=== PATIENT | female | born 1935 | race African-American/Black ===

== ENCOUNTER 2017-11-09 15:32 | Inpatient (IN) ==
[2017-11-09] MEDS ORDERED: FUROSEMIDE 100 MG/10 ML VIAL IV STA (16:01)
[2017-11-09 17:17] LABS: INR 1.1; Partial Thromboplastin Time 26.6 SECS (0-40)
[2017-11-09 17:21] LABS: Bilirubin,Total 0.4 MG/DL (0.2-1.0); Calcium 8.6 MG/DL (8.5-10.1); Osmolality,Calculated 298.1 MOS/KG (273-304); Potassium 4.9 MMOL/L (3.5-5.1); Total Protein 7.4 G/DL (6.4-8.3)
[2017-11-09 17:22] LABS: Troponin I Only 0.048 NG/ML (0.00-0.045)
[2017-11-09 17:37] LABS: Apearance,Urine CLEAR (Clear); Bacteria,Urine Occasional /HPF (Few); Bilirubin,Urine Negative (Negative); Blood, Urine Negative (Negative); Glucose,Urine (UA) Negative (Negative); Hyaline Casts,Urine 1 /LPF (0-3); Ketones,Urine Negative (Negative); Nitrite,Urine Negative (Negative); Protein,Urine Negative; RBC,Urine 1 /HPF (0-4); Squamous Epithelial Cell,Urine Occasional /HPF (0-10); Urine Color Yellow (Yellow); Urine Specific Gravity 1.009 (1.001-1.035); Urine Urobilinogen < 2.0 EU/DL (0.2-1.0); WBC,Urine 1 /HPF (0-6)
[2017-11-09 17:41] LABS: Basophils % 0.5 % (0.0-0.8); Eosinophils # 0.5 10*3/uL (0.0-0.87); Eosinophils % 5.9 % (0.00-10.9); Hematocrit 35.8 VOL% (35.7-47.0); Hemoglobin 10.6 GM/DL (12.0-16.0); Immature Granulocytes % 0.4 %; Immature Granulocytes Absolute 0.03 #; Lymphocytes # 0.7 10*3/uL (1.4-4.0); Lymphocytes % 8.4 % (21.3-54.2); Mean Corpuscular HGB Conc 29.6 GM/DL (32-36); Mean Corpuscular Hemoglobin 24 PG (27-34); Mean Corpuscular Volume 82.5 FL (87-102); Mean Platelet Volume 10.9 FL (9.6-12.0); Monocytes # 0.7 10*3/uL (0.11-0.8); Monocytes % 8.8 % (1.7-12.7); Platelet Count 192 T/CUMM (130-400); Red Blood Count 4.34 MC/CUMM (3.8-5.5); White Blood Count 7.9 T/CUMM (4-12)
[2017-11-09] MEDS ORDERED: ACETAMINOPHEN 325 MG TABLET PO PRN (19:44)
[2017-11-09] MEDS ORDERED: DOCUSATE SODIUM 100 MG CAPSULE PO PRN (19:44)
[2017-11-09] MEDS ORDERED: ONDANSETRON 4 MG/2 ML VIAL IV PRN (19:44)
[2017-11-09] MEDS ORDERED: GLUCAGON 1 MG VIAL IM PRN (20:08)
[2017-11-09] MEDS ORDERED: DEXTROSE 50% 25 GM/50 ML VIAL IV PRN (20:08)
[2017-11-09] MEDS ORDERED: ENOXAPARIN 30 MG/0.3 ML SYRINGE SUBCUT SCH (21:00)
[2017-11-09] MEDS ORDERED: ALBUTEROL/IPRATROPIUM 3 ML NEB RESP TX PRN (22:04)
[2017-11-09] MEDS: INSULIN REGULAR 100 UNIT/ML SUBCUT SCH (22:39)
[2017-11-09] MEDS: CARVEDILOL 25 MG TABLET PO SCH (22:46)
[2017-11-09] MEDS: APIXABAN 2.5 MG TABLET PO SCH (22:46)
[2017-11-09] MEDS: cefTRIAXone 1,000 MG in SYRINGE 1 EACH IV SCH (22:46)
[2017-11-09] MEDS: hydrALAZINE 25 MG TABLET PO SCH (22:46)
[2017-11-10 05:12] LABS: Apearance,Urine CLOUDY (Clear); Bilirubin,Urine Negative (Negative); Blood, Urine Large mg/dL (Negative); Glucose,Urine (UA) Negative (Negative); Hyaline Casts,Urine 20 /LPF (0-3); Ketones,Urine Negative (Negative); Nitrite,Urine Negative (Negative); Protein,Urine Negative; RBC,Urine 860 /HPF (0-4); Squamous Epithelial Cell,Urine Occasional /HPF (0-10); Urine Color Yellow (Yellow); Urine Specific Gravity 1.006 (1.001-1.035); Urine Urobilinogen < 2.0 EU/DL (0.2-1.0); WBC,Urine 62 /HPF (0-6)
[2017-11-10 05:14] LABS: Basophils % 0.3 % (0.0-0.8); Eosinophils # 0.7 10*3/uL (0.0-0.87); Eosinophils % 9.5 % (0.00-10.9); Hematocrit 33.8 VOL% (35.7-47.0); Hemoglobin 10.2 GM/DL (12.0-16.0); Immature Granulocytes % 0.4 %; Immature Granulocytes Absolute 0.03 #; Lymphocytes # 0.8 10*3/uL (1.4-4.0); Lymphocytes % 10.4 % (21.3-54.2); Mean Corpuscular HGB Conc 30.2 GM/DL (32-36); Mean Corpuscular Hemoglobin 24 PG (27-34); Mean Corpuscular Volume 80.3 FL (87-102); Mean Platelet Volume 10.3 FL (9.6-12.0); Monocytes # 0.8 10*3/uL (0.11-0.8); Monocytes % 10.4 % (1.7-12.7); Neutrophils # 5.1 10*3/uL (1.4-7.4); Platelet Count 183 T/CUMM (130-400); Red Blood Count 4.21 MC/CUMM (3.8-5.5); Red Cell Distribution Width 15.9 % (9.3-17.3); White Blood Count 7.4 T/CUMM (4-12)
[2017-11-10 05:40] LABS: Albumin 3.1 G/DL (3.4-5.0); Bilirubin,Total 0.6 MG/DL (0.2-1.0); Calcium 8.8 MG/DL (8.5-10.1); Total Protein 6.7 G/DL (6.4-8.3)
[2017-11-10 05:41] LABS: Osmolality,Calculated 299.7 MOS/KG (273-304); Potassium 4.3 MMOL/L (3.5-5.1)
[2017-11-10] MEDS ORDERED: FUROSEMIDE 40 MG/4 ML VIAL IV SCH (08:00)
[2017-11-10] MEDS: INSULIN REGULAR 100 UNIT/ML SUBCUT SCH ×4 (08:13→21:22)
[2017-11-10] MEDS: sitaGLIPtin 25 MG TABLET PO SCH (09:35)
[2017-11-10] MEDS: ASPIRIN EC 81 MG TABLET PO SCH (09:35)
[2017-11-10] MEDS: glyBURIDE 5 MG TABLET PO SCH ×2 (09:35→17:45)
[2017-11-10] MEDS: APIXABAN 2.5 MG TABLET PO SCH ×2 (09:37→21:22)
[2017-11-10] MEDS: ISOSORBIDE MONONITRATE 30 MG TABLET PO SCH (09:37)
[2017-11-10] MEDS: CILOSTAZOL 50 MG TABLET PO SCH (09:37)
[2017-11-10] MEDS: POTASSIUM CHLORIDE 10 MEQ TABLET PO SCH (09:38)
[2017-11-10] MEDS: DILTIAZEM CD 180 MG CAPSULE PO SCH (09:39)
[2017-11-10] MEDS: PANTOPRAZOLE 40 MG TABLET PO SCH (09:41)
[2017-11-10] MEDS: CLOPIDOGREL 75 MG TABLET PO SCH (09:41)
[2017-11-10] MEDS: CARVEDILOL 25 MG TABLET PO SCH ×2 (09:44→21:22)
[2017-11-10] MEDS: hydrALAZINE 25 MG TABLET PO SCH ×3 (09:44→21:22)
[2017-11-10] MEDS: FUROSEMIDE 40 MG/4 ML VIAL IV SCH (09:46)
[2017-11-10] MEDS ORDERED: methylPREDNISolone SOD SUC 40 MG/1 ML VIAL IV SCH (10:30)
[2017-11-10] MEDS: ALBUTEROL/IPRATROPIUM 3 ML NEB RESP TX SCH ×2 (13:46→19:54)
[2017-11-10] MEDS: cefTRIAXone 1,000 MG in SYRINGE 1 EACH IV SCH (21:22)
[2017-11-11] MEDS: ALBUTEROL/IPRATROPIUM 3 ML NEB RESP TX SCH ×4 (01:18→19:27)
[2017-11-11 05:37] LABS: Hematocrit 33.9 VOL% (35.7-47.0); Hemoglobin 10.2 GM/DL (12.0-16.0); Immature Granulocytes % 0.4 %; Immature Granulocytes Absolute 0.02 #; Lymphocytes # 0.5 10*3/uL (1.4-4.0); Lymphocytes % 9.3 % (21.3-54.2); Mean Corpuscular HGB Conc 30.1 GM/DL (32-36); Mean Corpuscular Hemoglobin 24 PG (27-34); Mean Corpuscular Volume 79.8 FL (87-102); Mean Platelet Volume 10.9 FL (9.6-12.0); Monocytes # 0.1 10*3/uL (0.11-0.8); Monocytes % 2.2 % (1.7-12.7); Neutrophils # 4.5 10*3/uL (1.4-7.4); Neutrophils % 88.1 % (38.7-73.9); Platelet Count 196 T/CUMM (130-400); Red Blood Count 4.25 MC/CUMM (3.8-5.5); Red Cell Distribution Width 15.9 % (9.3-17.3); White Blood Count 5.1 T/CUMM (4-12)
[2017-11-11 06:07] LABS: Calcium 9.2 MG/DL (8.5-10.1); Potassium 4.5 MMOL/L (3.5-5.1)
[2017-11-11 06:24] LABS: Risk Ratio 1.98; VLDL CHOLESTEROL 7.2 MG/DL
[2017-11-11] MEDS: FUROSEMIDE 40 MG/4 ML VIAL IV SCH ×2 (08:10→17:07)
[2017-11-11] MEDS: CLOPIDOGREL 75 MG TABLET PO SCH (08:11)
[2017-11-11] MEDS: ISOSORBIDE MONONITRATE 30 MG TABLET PO SCH (08:11)
[2017-11-11] MEDS: INSULIN REGULAR 100 UNIT/ML SUBCUT SCH ×3 (08:11→18:10)
[2017-11-11] MEDS: sitaGLIPtin 25 MG TABLET PO SCH (08:11)
[2017-11-11] MEDS: glyBURIDE 5 MG TABLET PO SCH ×2 (08:11→17:09)
[2017-11-11] MEDS: ASPIRIN EC 81 MG TABLET PO SCH (08:11)
[2017-11-11] MEDS: CARVEDILOL 25 MG TABLET PO SCH ×2 (08:12→21:16)
[2017-11-11] MEDS: DILTIAZEM CD 180 MG CAPSULE PO SCH (08:12)
[2017-11-11] MEDS: PANTOPRAZOLE 40 MG TABLET PO SCH (08:12)
[2017-11-11] MEDS: hydrALAZINE 25 MG TABLET PO SCH ×3 (08:12→21:16)
[2017-11-11] MEDS: CILOSTAZOL 50 MG TABLET PO SCH (08:12)
[2017-11-11] MEDS: POTASSIUM CHLORIDE 10 MEQ TABLET PO SCH (08:12)
[2017-11-11] MEDS: APIXABAN 2.5 MG TABLET PO SCH ×2 (08:12→21:16)
[2017-11-11] MEDS ORDERED: FUROSEMIDE 40 MG/4 ML VIAL IV ONE (16:00)
[2017-11-12] MEDS: cefTRIAXone 1,000 MG in SYRINGE 1 EACH IV SCH ×2 (00:03→21:15)
[2017-11-12] MEDS: INSULIN REGULAR 100 UNIT/ML SUBCUT SCH ×4 (00:09→15:56)
[2017-11-12] MEDS: ALBUTEROL/IPRATROPIUM 3 ML NEB RESP TX SCH ×4 (00:31→19:40)
[2017-11-12 05:30] LABS: Basophils % 0.4 % (0.0-0.8); Eosinophils # 0.1 10*3/uL (0.0-0.87); Hematocrit 32.8 VOL% (35.7-47.0); Hemoglobin 9.7 GM/DL (12.0-16.0); Immature Granulocytes % 0.1 %; Immature Granulocytes Absolute 0.01 #; Lymphocytes # 0.8 10*3/uL (1.4-4.0); Lymphocytes % 10.8 % (21.3-54.2); Mean Corpuscular HGB Conc 29.6 GM/DL (32-36); Mean Corpuscular Hemoglobin 24 PG (27-34); Mean Platelet Volume 10.4 FL (9.6-12.0); Monocytes # 0.7 10*3/uL (0.11-0.8); Monocytes % 9.5 % (1.7-12.7); Neutrophils # 5.7 10*3/uL (1.4-7.4); Neutrophils % 78.2 % (38.7-73.9); Platelet Count 199 T/CUMM (130-400); Red Blood Count 4.05 MC/CUMM (3.8-5.5); Red Cell Distribution Width 15.9 % (9.3-17.3); White Blood Count 7.3 T/CUMM (4-12)
[2017-11-12 06:00] LABS: Calcium 9.2 MG/DL (8.5-10.1); Osmolality,Calculated 300.1 MOS/KG (273-304)
[2017-11-12] MEDS: ISOSORBIDE MONONITRATE 30 MG TABLET PO SCH (08:54)
[2017-11-12] MEDS: DILTIAZEM CD 180 MG CAPSULE PO SCH (08:54)
[2017-11-12] MEDS: APIXABAN 2.5 MG TABLET PO SCH ×2 (08:54→21:14)
[2017-11-12] MEDS: ASPIRIN EC 81 MG TABLET PO SCH (08:54)
[2017-11-12] MEDS: POTASSIUM CHLORIDE 10 MEQ TABLET PO SCH (08:54)
[2017-11-12] MEDS: PANTOPRAZOLE 40 MG TABLET PO SCH (08:54)
[2017-11-12] MEDS: CILOSTAZOL 50 MG TABLET PO SCH (08:54)
[2017-11-12] MEDS: hydrALAZINE 25 MG TABLET PO SCH (08:54)
[2017-11-12] MEDS: FUROSEMIDE 40 MG/4 ML VIAL IV SCH (08:55)
[2017-11-12] MEDS: CARVEDILOL 25 MG TABLET PO SCH ×2 (08:55→21:15)
[2017-11-12] MEDS: glyBURIDE 5 MG TABLET PO SCH (08:55)
[2017-11-12] MEDS: sitaGLIPtin 25 MG TABLET PO SCH (08:55)
[2017-11-12] MEDS: FUROSEMIDE 80 MG TABLET PO SCH (16:02)
[2017-11-13] MEDS: ALBUTEROL/IPRATROPIUM 3 ML NEB RESP TX SCH ×2 (00:08→08:10)
[2017-11-13] MEDS: INSULIN REGULAR 100 UNIT/ML SUBCUT SCH ×4 (01:21→16:15)
[2017-11-13 04:26] LABS: Basophils % 0.5 % (0.0-0.8); Eosinophils # 0.5 10*3/uL (0.0-0.87); Eosinophils % 7.8 % (0.00-10.9); Hematocrit 34.4 VOL% (35.7-47.0); Hemoglobin 10.4 GM/DL (12.0-16.0); Immature Granulocytes % 0.3 %; Immature Granulocytes Absolute 0.02 #; Lymphocytes # 0.8 10*3/uL (1.4-4.0); Lymphocytes % 11.7 % (21.3-54.2); Mean Corpuscular HGB Conc 30.2 GM/DL (32-36); Mean Corpuscular Hemoglobin 24 PG (27-34); Mean Platelet Volume 10.5 FL (9.6-12.0); Monocytes # 0.7 10*3/uL (0.11-0.8); Monocytes % 11.4 % (1.7-12.7); Neutrophils # 4.4 10*3/uL (1.4-7.4); Neutrophils % 68.3 % (38.7-73.9); Platelet Count 216 T/CUMM (130-400); White Blood Count 6.5 T/CUMM (4-12)
[2017-11-13 04:53] LABS: Calcium 9.2 MG/DL (8.5-10.1); Osmolality,Calculated 299.1 MOS/KG (273-304); Potassium 3.7 MMOL/L (3.5-5.1)
[2017-11-13] MEDS: ASPIRIN EC 81 MG TABLET PO SCH (09:45)
[2017-11-13] MEDS: APIXABAN 2.5 MG TABLET PO SCH (09:45)
[2017-11-13] MEDS: PANTOPRAZOLE 40 MG TABLET PO SCH (09:45)
[2017-11-13] MEDS: DILTIAZEM CD 180 MG CAPSULE PO SCH (09:46)
[2017-11-13] MEDS: CILOSTAZOL 50 MG TABLET PO SCH (09:46)
[2017-11-13] MEDS: ISOSORBIDE MONONITRATE 30 MG TABLET PO SCH (09:47)
[2017-11-13] MEDS: CARVEDILOL 25 MG TABLET PO SCH (09:47)
[2017-11-13] MEDS: FUROSEMIDE 80 MG TABLET PO SCH ×2 (09:48→16:15)
[2017-11-13] MEDS: POTASSIUM CHLORIDE 10 MEQ TABLET PO SCH (09:49)
[2017-11-13] MEDS: sitaGLIPtin 25 MG TABLET PO SCH (09:50)
[2017-11-13 11:37] VITALS: BP 145/53
[2017-11-13] MEDS ORDERED: BISACODYL 5 MG TABLET PO PRN (11:48)
== END 2017-11-13 16:35 | DRG 291 ==
LOC: N.ED 15:32 → N.EDINP 19:44 → SUATTDRO 19:45 → N.EDINP 21:45 → N.4E 21:52
PROVIDERS: ADMIT Internal Medicine; ATTEND Internal Medicine Infectious Disease

== ENCOUNTER 2017-11-27 08:22 | Inpatient (IN) ==
[2017-11-27] MEDS ORDERED: DEXTROSE 50% 25 GM/50 ML SYRINGE IV ONE (08:37)
[2017-11-27] MEDS ORDERED: DEXTROSE 50% 25 GM/50 ML SYRINGE IV STA (08:38)
[2017-11-27 09:07] LABS: Basophils % 0.2 % (0.0-0.8); Eosinophils # 0.4 10*3/uL (0.0-0.87); Eosinophils % 5.6 % (0.00-10.9); Immature Granulocytes % 0.3 %; Immature Granulocytes Absolute 0.02 #; Lymphocytes # 0.8 10*3/uL (1.4-4.0); Mean Corpuscular HGB Conc 30.3 GM/DL (32-36); Mean Corpuscular Hemoglobin 25 PG (27-34); Mean Corpuscular Volume 81.1 FL (87-102); Monocytes # 0.5 10*3/uL (0.11-0.8); Monocytes % 7.9 % (1.7-12.7); Neutrophils # 4.7 10*3/uL (1.4-7.4); Platelet Count 192 T/CUMM (130-400); Red Blood Count 4.07 MC/CUMM (3.8-5.5); Red Cell Distribution Width 16.9 % (9.3-17.3); White Blood Count 6.5 T/CUMM (4-12)
[2017-11-27] MEDS ORDERED: DEXTROSE 50% 25 GM/50 ML VIAL IV PRN (09:30)
[2017-11-27] MEDS ORDERED: GLUCAGON 1 MG VIAL IM PRN (09:30)
[2017-11-27 09:32] LABS: Bilirubin,Total 0.4 MG/DL (0.2-1.0); Calcium 8.8 MG/DL (8.5-10.1); Osmolality,Calculated 286.4 MOS/KG (273-304); Potassium 4.1 MMOL/L (3.5-5.1); Total Protein 7.3 G/DL (6.4-8.3)
[2017-11-27 09:48] LABS: Hypochromasia 1+; Ovalocytes Slight; Platelet Estimate Adequate
[2017-11-27 09:52] LABS: ABG Base Excess 6.9 MMOL/L (-2.5-2.5); ABG HCO3 30.7 MMOL/L (20-26); ABG Oxygen Saturation 95.4 % (95-100); ABG PH 7.305 (7.35-7.45); ABG PO2 82.5 MM HG (80-95); ABG TCO2 32.7 MMOL/L (23-27)
[2017-11-27 09:53] LABS: ABG PCO2 71.6 MM HG (35-48)
[2017-11-27 11:52] LABS: Apearance,Urine CLEAR (Clear); Bacteria,Urine Occasional /HPF (Few); Bilirubin,Urine Negative (Negative); Blood, Urine Negative (Negative); Glucose,Urine (UA) Negative (Negative); Hyaline Casts,Urine 6 /LPF (0-3); Ketones,Urine Negative (Negative); Mucus,Urine Occasional /LPF (Occasional); Nitrite,Urine Negative (Negative); Protein,Urine Negative; RBC,Urine <1 /HPF (0-4); Urine Color Yellow (Yellow); Urine Specific Gravity 1.008 (1.001-1.035); Urine Urobilinogen < 2.0 EU/DL (0.2-1.0); WBC,Urine <1 /HPF (0-6)
[2017-11-27 11:57] LABS: Barbiturates Screen,Urine Negative (Negative); Benzodiazepines Screen,Urine Negative (Negative); Cannabinoid Screen,Urine Negative (Negative); Opiate Screen,Urine Negative (Negative); Phencyclidine Screen,Urine Negative (Negative)
[2017-11-27] MEDS ORDERED: ACETAMINOPHEN 325 MG TABLET PO PRN (12:31)
[2017-11-27] MEDS ORDERED: ONDANSETRON 4 MG/2 ML VIAL IV PRN (12:31)
[2017-11-27] MEDS ORDERED: ALBUTEROL/IPRATROPIUM 3 ML NEB RESP TX PRN (14:21)
[2017-11-27] MEDS: ISOSORBIDE MONONITRATE 30 MG TABLET PO SCH (15:54)
[2017-11-27] MEDS: FUROSEMIDE 40 MG/4 ML VIAL IV SCH (15:54)
[2017-11-27] MEDS ORDERED: FUROSEMIDE 40 MG/4 ML VIAL IV SCH (16:00)
[2017-11-27 18:14] LABS: ABG Base Excess 8.6 MMOL/L (-2.5-2.5); ABG HCO3 32.3 MMOL/L (20-26); ABG PCO2 64.7 MM HG (35-48); ABG PH 7.356 (7.35-7.45); ABG PO2 76.7 MM HG (80-95); ABG TCO2 33.1 MMOL/L (23-27)
[2017-11-27] MEDS: DOCUSATE SODIUM 100 MG CAPSULE PO SCH (21:10)
[2017-11-27] MEDS: APIXABAN 2.5 MG TABLET PO SCH (21:10)
[2017-11-27] MEDS: ATORVASTATIN 80 MG TABLET PO SCH (21:10)
[2017-11-27] MEDS: LORATADINE 10 MG TABLET PO SCH (21:10)
[2017-11-27] MEDS: CARVEDILOL 25 MG TABLET PO SCH (21:10)
[2017-11-28 04:04] LABS: ABG Base Excess 9.5 MMOL/L (-2.5-2.5); ABG HCO3 33.2 MMOL/L (20-26); ABG Oxygen Saturation 92.8 % (95-100); ABG PCO2 58.3 MM HG (35-48); ABG PO2 63.8 MM HG (80-95); ABG TCO2 33.3 MMOL/L (23-27); Allen Test Positive; Pt O2 Delivery Device BIPAP
[2017-11-28 05:51] LABS: Basophils % 0.2 % (0.0-0.8); Eosinophils # 0.3 10*3/uL (0.0-0.87); Hematocrit 29.9 VOL% (35.7-47.0); Immature Granulocytes % 0.4 %; Immature Granulocytes Absolute 0.02 #; Lymphocytes # 0.7 10*3/uL (1.4-4.0); Lymphocytes % 12.4 % (21.3-54.2); Mean Corpuscular HGB Conc 30.1 GM/DL (32-36); Mean Corpuscular Hemoglobin 24 PG (27-34); Mean Platelet Volume 11.9 FL (9.6-12.0); Monocytes # 0.6 10*3/uL (0.11-0.8); Monocytes % 10.5 % (1.7-12.7); Neutrophils # 3.9 10*3/uL (1.4-7.4); Neutrophils % 70.5 % (38.7-73.9); Platelet Count 187 T/CUMM (130-400); Red Blood Count 3.69 MC/CUMM (3.8-5.5); White Blood Count 5.5 T/CUMM (4-12)
[2017-11-28 06:04] LABS: Calcium 8.6 MG/DL (8.5-10.1); Potassium 4.2 MMOL/L (3.5-5.1)
[2017-11-28 06:15] LABS: % Iron Saturation 12.1 % (18-50)
[2017-11-28 06:25] LABS: Band Neutrophils 2 % (0-10); Eosinophils 2 % (0-10); Hypochromasia 2+; Lymphocytes 9 % (20-55); Macrocytosis 1+; Platelet Estimate Adequate; Segmented Neutrophils 79 % (50-85); Target Cells Slight; Total Cells Counted 100
[2017-11-28 06:29] LABS: Folate 11.6 NG/ML (5.4-24.0)
[2017-11-28] MEDS: FUROSEMIDE 40 MG/4 ML VIAL IV SCH ×2 (08:51→15:10)
[2017-11-28] MEDS: ASPIRIN EC 81 MG TABLET PO SCH (08:52)
[2017-11-28] MEDS: CARVEDILOL 25 MG TABLET PO SCH ×2 (08:52→21:17)
[2017-11-28] MEDS: POLYETHYLENE GLYCOL POWDER 17 GM PACK PO SCH (08:52)
[2017-11-28] MEDS: DILTIAZEM CD 180 MG CAPSULE PO SCH (08:52)
[2017-11-28] MEDS: DOCUSATE SODIUM 100 MG CAPSULE PO SCH ×2 (08:52→21:17)
[2017-11-28] MEDS: CLOPIDOGREL 75 MG TABLET PO SCH (08:52)
[2017-11-28] MEDS: PANTOPRAZOLE 40 MG TABLET PO SCH (08:52)
[2017-11-28] MEDS: APIXABAN 2.5 MG TABLET PO SCH ×2 (08:52→21:17)
[2017-11-28] MEDS: CILOSTAZOL 50 MG TABLET PO SCH (08:53)
[2017-11-28] MEDS: ISOSORBIDE MONONITRATE 30 MG TABLET PO SCH (15:10)
[2017-11-28] MEDS: ATORVASTATIN 80 MG TABLET PO SCH (21:17)
[2017-11-28] MEDS: LORATADINE 10 MG TABLET PO SCH (21:17)
[2017-11-29 04:01] LABS: ABG Base Excess 9.7 MMOL/L (-2.5-2.5); ABG HCO3 35.4 MMOL/L (20-26); ABG Oxygen Saturation 93.2 % (95-100); ABG PCO2 55.2 MM HG (35-48); ABG PH 7.425 (7.35-7.45); ABG PO2 69.1 MM HG (80-95); ABG TCO2 37.1 MMOL/L (23-27)
[2017-11-29 06:00] LABS: Basophils % 0.2 % (0.0-0.8); Eosinophils # 0.4 10*3/uL (0.0-0.87); Eosinophils % 6.9 % (0.00-10.9); Hematocrit 30.7 VOL% (35.7-47.0); Hemoglobin 9.2 GM/DL (12.0-16.0); Immature Granulocytes % 0.2 %; Immature Granulocytes Absolute 0.01 #; Lymphocytes # 0.8 10*3/uL (1.4-4.0); Lymphocytes % 13.7 % (21.3-54.2); Mean Corpuscular Hemoglobin 24 PG (27-34); Mean Corpuscular Volume 80.6 FL (87-102); Mean Platelet Volume 11.3 FL (9.6-12.0); Monocytes # 0.7 10*3/uL (0.11-0.8); Monocytes % 11.9 % (1.7-12.7); Neutrophils # 4.1 10*3/uL (1.4-7.4); Neutrophils % 67.1 % (38.7-73.9); Platelet Count 179 T/CUMM (130-400); Red Blood Count 3.81 MC/CUMM (3.8-5.5); Red Cell Distribution Width 17.2 % (9.3-17.3); White Blood Count 6.1 T/CUMM (4-12)
[2017-11-29 06:21] LABS: Osmolality,Calculated 296.1 MOS/KG (273-304); Potassium 4.6 MMOL/L (3.5-5.1)
[2017-11-29] MEDS: FUROSEMIDE 40 MG/4 ML VIAL IV SCH ×2 (09:05→16:20)
[2017-11-29] MEDS: POLYETHYLENE GLYCOL POWDER 17 GM PACK PO SCH (09:05)
[2017-11-29] MEDS: DOCUSATE SODIUM 100 MG CAPSULE PO SCH ×2 (09:06→20:50)
[2017-11-29] MEDS: DILTIAZEM CD 180 MG CAPSULE PO SCH (09:06)
[2017-11-29] MEDS: CLOPIDOGREL 75 MG TABLET PO SCH (09:06)
[2017-11-29] MEDS: CILOSTAZOL 50 MG TABLET PO SCH (09:06)
[2017-11-29] MEDS: APIXABAN 2.5 MG TABLET PO SCH ×2 (09:06→20:50)
[2017-11-29] MEDS: ASPIRIN EC 81 MG TABLET PO SCH (09:06)
[2017-11-29] MEDS: PANTOPRAZOLE 40 MG TABLET PO SCH (09:06)
[2017-11-29] MEDS: CARVEDILOL 25 MG TABLET PO SCH ×2 (09:06→20:50)
[2017-11-29] MEDS: ISOSORBIDE MONONITRATE 30 MG TABLET PO SCH (13:42)
[2017-11-29] MEDS: ATORVASTATIN 80 MG TABLET PO SCH (20:50)
[2017-11-29] MEDS: LORATADINE 10 MG TABLET PO SCH (20:50)
[2017-11-30 03:32] LABS: ABG Base Excess 8.7 MMOL/L (-2.5-2.5); ABG HCO3 32.4 MMOL/L (20-26); ABG Oxygen Saturation 93.6 % (95-100); ABG PCO2 62.3 MM HG (35-48); ABG PH 7.369 (7.35-7.45); Allen Test Positive; Pt O2 Delivery Device BIPAP
[2017-11-30 05:12] LABS: Basophils % 0.5 % (0.0-0.8); Eosinophils # 0.4 10*3/uL (0.0-0.87); Eosinophils % 6.9 % (0.00-10.9); Hematocrit 31.5 VOL% (35.7-47.0); Hemoglobin 9.3 GM/DL (12.0-16.0); Immature Granulocytes % 0.3 %; Immature Granulocytes Absolute 0.02 #; Lymphocytes # 0.7 10*3/uL (1.4-4.0); Lymphocytes % 12.8 % (21.3-54.2); Mean Corpuscular HGB Conc 29.5 GM/DL (32-36); Mean Corpuscular Hemoglobin 24 PG (27-34); Mean Corpuscular Volume 82.7 FL (87-102); Mean Platelet Volume 11.5 FL (9.6-12.0); Monocytes # 0.7 10*3/uL (0.11-0.8); Neutrophils # 3.9 10*3/uL (1.4-7.4); Neutrophils % 67.5 % (38.7-73.9); Platelet Count 173 T/CUMM (130-400); Red Blood Count 3.81 MC/CUMM (3.8-5.5); Red Cell Distribution Width 17.2 % (9.3-17.3); White Blood Count 5.8 T/CUMM (4-12)
[2017-11-30 05:37] LABS: Band Neutrophils 1 % (0-10); Eosinophils 6 % (0-10); Hypochromasia 1+; Lymphocytes 12 % (20-55); Ovalocytes Slight; Platelet Estimate Adequate; Segmented Neutrophils 73 % (50-85); Total Cells Counted 100
[2017-11-30 05:50] LABS: Calcium 8.8 MG/DL (8.5-10.1); Osmolality,Calculated 302.1 MOS/KG (273-304); Potassium 4.5 MMOL/L (3.5-5.1)
[2017-11-30] MEDS: FUROSEMIDE 40 MG/4 ML VIAL IV SCH ×2 (08:43→16:18)
[2017-11-30] MEDS: APIXABAN 2.5 MG TABLET PO SCH ×2 (08:44→21:21)
[2017-11-30] MEDS: DILTIAZEM CD 180 MG CAPSULE PO SCH (08:44)
[2017-11-30] MEDS: DOCUSATE SODIUM 100 MG CAPSULE PO SCH ×2 (08:44→21:21)
[2017-11-30] MEDS: POLYETHYLENE GLYCOL POWDER 17 GM PACK PO SCH (08:44)
[2017-11-30] MEDS: PANTOPRAZOLE 40 MG TABLET PO SCH (08:44)
[2017-11-30] MEDS: ASPIRIN EC 81 MG TABLET PO SCH (08:45)
[2017-11-30] MEDS: CARVEDILOL 25 MG TABLET PO SCH ×2 (08:45→21:21)
[2017-11-30] MEDS: CLOPIDOGREL 75 MG TABLET PO SCH (08:45)
[2017-11-30] MEDS: CILOSTAZOL 50 MG TABLET PO SCH (08:45)
[2017-11-30] MEDS: INSULIN LISPRO 100 UNIT/ML SUBCUT SCH ×3 (11:29→21:24)
[2017-11-30] MEDS: ISOSORBIDE MONONITRATE 30 MG TABLET PO SCH (13:54)
[2017-11-30] MEDS: ATORVASTATIN 80 MG TABLET PO SCH (21:20)
[2017-11-30] MEDS: LORATADINE 10 MG TABLET PO SCH (21:21)
[2017-12-01 06:06] LABS: Basophils % 0.3 % (0.0-0.8); Eosinophils # 0.4 10*3/uL (0.0-0.87); Eosinophils % 5.6 % (0.00-10.9); Hematocrit 32.9 VOL% (35.7-47.0); Hemoglobin 9.9 GM/DL (12.0-16.0); Immature Granulocytes % 0.3 %; Immature Granulocytes Absolute 0.02 #; Lymphocytes # 0.8 10*3/uL (1.4-4.0); Lymphocytes % 12.4 % (21.3-54.2); Mean Corpuscular HGB Conc 30.1 GM/DL (32-36); Mean Corpuscular Hemoglobin 24 PG (27-34); Mean Corpuscular Volume 80.4 FL (87-102); Mean Platelet Volume 11.3 FL (9.6-12.0); Monocytes # 0.5 10*3/uL (0.11-0.8); Monocytes % 8.4 % (1.7-12.7); Neutrophils # 4.6 10*3/uL (1.4-7.4); Platelet Count 212 T/CUMM (130-400); Red Blood Count 4.09 MC/CUMM (3.8-5.5); Red Cell Distribution Width 17.2 % (9.3-17.3); White Blood Count 6.3 T/CUMM (4-12)
[2017-12-01 06:12] LABS: Calcium 9.2 MG/DL (8.5-10.1); Osmolality,Calculated 298.4 MOS/KG (273-304); Potassium 4.4 MMOL/L (3.5-5.1)
[2017-12-01 07:02] LABS: Eosinophils 5 % (0-10); Hypochromasia 1+; Lymphocytes 15 % (20-55); Microcytosis 1+; Segmented Neutrophils 72 % (50-85); Total Cells Counted 100
[2017-12-01 07:03] LABS: Ovalocytes Few; Platelet Estimate Adequate
[2017-12-01] MEDS: INSULIN LISPRO 100 UNIT/ML SUBCUT SCH ×4 (08:19→21:13)
[2017-12-01] MEDS: FUROSEMIDE 40 MG/4 ML VIAL IV SCH ×2 (08:55→15:57)
[2017-12-01] MEDS: CILOSTAZOL 50 MG TABLET PO SCH (08:56)
[2017-12-01] MEDS: ASPIRIN EC 81 MG TABLET PO SCH (08:56)
[2017-12-01] MEDS: DOCUSATE SODIUM 100 MG CAPSULE PO SCH ×2 (08:56→21:13)
[2017-12-01] MEDS: PANTOPRAZOLE 40 MG TABLET PO SCH (08:56)
[2017-12-01] MEDS: APIXABAN 2.5 MG TABLET PO SCH ×2 (08:56→21:13)
[2017-12-01] MEDS: POLYETHYLENE GLYCOL POWDER 17 GM PACK PO SCH (08:56)
[2017-12-01] MEDS: CLOPIDOGREL 75 MG TABLET PO SCH (08:56)
[2017-12-01] MEDS: CARVEDILOL 25 MG TABLET PO SCH (08:57)
[2017-12-01] MEDS: DILTIAZEM CD 180 MG CAPSULE PO SCH (08:57)
[2017-12-01] MEDS: ISOSORBIDE MONONITRATE 30 MG TABLET PO SCH (15:52)
[2017-12-01] MEDS: LORATADINE 10 MG TABLET PO SCH (21:13)
[2017-12-01] MEDS: ATORVASTATIN 80 MG TABLET PO SCH (21:13)
[2017-12-02] MEDS: CARVEDILOL 25 MG TABLET PO SCH ×3 (02:56→21:16)
[2017-12-02 05:06] LABS: Basophils % 0.2 % (0.0-0.8); Eosinophils # 0.3 10*3/uL (0.0-0.87); Eosinophils % 6.1 % (0.00-10.9); Hematocrit 30.6 VOL% (35.7-47.0); Hemoglobin 9.2 GM/DL (12.0-16.0); Immature Granulocytes % 0.2 %; Immature Granulocytes Absolute 0.01 #; Lymphocytes # 0.8 10*3/uL (1.4-4.0); Lymphocytes % 15.6 % (21.3-54.2); Mean Corpuscular HGB Conc 30.1 GM/DL (32-36); Mean Corpuscular Hemoglobin 24 PG (27-34); Mean Platelet Volume 10.1 FL (9.6-12.0); Monocytes # 0.5 10*3/uL (0.11-0.8); Monocytes % 10.5 % (1.7-12.7); Neutrophils # 3.4 10*3/uL (1.4-7.4); Neutrophils % 67.4 % (38.7-73.9); Platelet Count 188 T/CUMM (130-400); Red Blood Count 3.78 MC/CUMM (3.8-5.5); Red Cell Distribution Width 17.2 % (9.3-17.3); White Blood Count 5.1 T/CUMM (4-12)
[2017-12-02 05:45] LABS: Calcium 8.8 MG/DL (8.5-10.1); Potassium 4.1 MMOL/L (3.5-5.1)
[2017-12-02] MEDS: INSULIN LISPRO 100 UNIT/ML SUBCUT SCH ×4 (08:22→20:33)
[2017-12-02] MEDS: FUROSEMIDE 40 MG/4 ML VIAL IV SCH (09:13)
[2017-12-02] MEDS: POLYETHYLENE GLYCOL POWDER 17 GM PACK PO SCH (09:14)
[2017-12-02] MEDS: CILOSTAZOL 50 MG TABLET PO SCH (09:14)
[2017-12-02] MEDS: DOCUSATE SODIUM 100 MG CAPSULE PO SCH ×2 (09:15→21:16)
[2017-12-02] MEDS: ASPIRIN EC 81 MG TABLET PO SCH (09:15)
[2017-12-02] MEDS: PANTOPRAZOLE 40 MG TABLET PO SCH (09:15)
[2017-12-02] MEDS: CLOPIDOGREL 75 MG TABLET PO SCH (09:15)
[2017-12-02] MEDS: DILTIAZEM CD 180 MG CAPSULE PO SCH (09:15)
[2017-12-02] MEDS: APIXABAN 2.5 MG TABLET PO SCH ×2 (09:15→21:16)
[2017-12-02] MEDS: ISOSORBIDE MONONITRATE 30 MG TABLET PO SCH (13:36)
[2017-12-02] MEDS: ATORVASTATIN 80 MG TABLET PO SCH (21:16)
[2017-12-02] MEDS: LORATADINE 10 MG TABLET PO SCH (21:16)
[2017-12-03] MEDS: FUROSEMIDE 40 MG/4 ML VIAL IV SCH ×2 (07:21→09:24)
[2017-12-03] MEDS: INSULIN LISPRO 100 UNIT/ML SUBCUT SCH ×2 (08:03→11:54)
[2017-12-03] MEDS: POLYETHYLENE GLYCOL POWDER 17 GM PACK PO SCH (09:24)
[2017-12-03] MEDS: CILOSTAZOL 50 MG TABLET PO SCH (09:26)
[2017-12-03] MEDS: PANTOPRAZOLE 40 MG TABLET PO SCH (09:26)
[2017-12-03] MEDS: CLOPIDOGREL 75 MG TABLET PO SCH (09:26)
[2017-12-03] MEDS: DOCUSATE SODIUM 100 MG CAPSULE PO SCH (09:26)
[2017-12-03] MEDS: DILTIAZEM CD 180 MG CAPSULE PO SCH (09:26)
[2017-12-03] MEDS: ASPIRIN EC 81 MG TABLET PO SCH (09:27)
[2017-12-03] MEDS: CARVEDILOL 25 MG TABLET PO SCH (09:27)
[2017-12-03] MEDS: APIXABAN 2.5 MG TABLET PO SCH (09:27)
[2017-12-03] MEDS ORDERED: metOLazone 5 MG TABLET PO SCH (10:30)
[2017-12-03 12:08] VITALS: BP 141/81
== END 2017-12-03 14:15 | disposition swing bed (61) | DRG 291 ==
LOC: N.ED 08:22 → SUATTDRO 11:20 → N.EDINP 11:20 → N.TELEN 13:23
PROVIDERS: ADMIT Internal Medicine Infectious Disease; ATTEND Internal Medicine

== ENCOUNTER 2017-12-19 01:12 | Inpatient (IN) ==
[2017-12-19] MEDS ORDERED: DEXTROSE 50% 25 GM/50 ML SYRINGE IV ONE (01:18)
[2017-12-19] MEDS ORDERED: DEXTROSE 50% 25 GM/50 ML VIAL IV STA (01:27)
[2017-12-19] MEDS ORDERED: DEXTROSE 10% 1,000 ML IV SCH (02:00)
[2017-12-19 02:08] LABS: Basophils % 0.4 % (0.0-0.8); Eosinophils # 0.2 10*3/uL (0.0-0.87); Eosinophils % 3.7 % (0.00-10.9); Hemoglobin 9.1 GM/DL (12.0-16.0); Immature Granulocytes % 0.5 %; Immature Granulocytes Absolute 0.03 #; Lymphocytes # 0.7 10*3/uL (1.4-4.0); Lymphocytes % 11.6 % (21.3-54.2); Mean Corpuscular HGB Conc 28.9 GM/DL (32-36); Mean Corpuscular Hemoglobin 24 PG (27-34); Mean Corpuscular Volume 83.3 FL (87-102); Monocytes # 0.6 10*3/uL (0.11-0.8); Neutrophils # 4.2 10*3/uL (1.4-7.4); Neutrophils % 73.8 % (38.7-73.9); Platelet Count 242 T/CUMM (130-400); Red Blood Count 3.78 MC/CUMM (3.8-5.5); Red Cell Distribution Width 17.5 % (9.3-17.3); White Blood Count 5.7 T/CUMM (4-12)
[2017-12-19 02:12] LABS: Hematocrit 31.2 VOL% (35.7-47.0)
[2017-12-19 02:26] LABS: Albumin 3.2 G/DL (3.4-5.0); Bilirubin,Total 0.4 MG/DL (0.2-1.0); Calcium 9.2 MG/DL (8.5-10.1); Osmolality,Calculated 308.1 MOS/KG (273-304); Potassium 4.8 MMOL/L (3.5-5.1); Total Protein 7.5 G/DL (6.4-8.3)
[2017-12-19] MEDS: DEXTROSE 5% 1,000 ML IV SCH ×2 (02:29→13:46)
[2017-12-19] MEDS ORDERED: GLUCAGON 1 MG VIAL IM PRN (04:50)
[2017-12-19] MEDS ORDERED: ACETAMINOPHEN 325 MG TABLET PO PRN (04:50)
[2017-12-19] MEDS ORDERED: ONDANSETRON 4 MG/2 ML VIAL IV PRN (04:50)
[2017-12-19] MEDS ORDERED: SODIUM CHLORIDE 0.9% 250 ML IV ONE (05:01)
[2017-12-19] MEDS ORDERED: CLINDAMYCIN 300 MG CAPSULE PO SCH (06:00)
[2017-12-19 07:35] LABS: Basophils % 0.2 % (0.0-0.8); Eosinophils # 0.2 10*3/uL (0.0-0.87); Hematocrit 29.7 VOL% (35.7-47.0); Hemoglobin 8.8 GM/DL (12.0-16.0); Immature Granulocytes % 0.3 %; Immature Granulocytes Absolute 0.02 #; Lymphocytes # 0.8 10*3/uL (1.4-4.0); Lymphocytes % 13.9 % (21.3-54.2); Mean Corpuscular HGB Conc 29.6 GM/DL (32-36); Mean Corpuscular Hemoglobin 24 PG (27-34); Mean Corpuscular Volume 81.4 FL (87-102); Mean Platelet Volume 10.6 FL (9.6-12.0); Monocytes # 0.6 10*3/uL (0.11-0.8); Monocytes % 10.5 % (1.7-12.7); Neutrophils # 4.1 10*3/uL (1.4-7.4); Neutrophils % 72.1 % (38.7-73.9); Platelet Count 250 T/CUMM (130-400); Red Blood Count 3.65 MC/CUMM (3.8-5.5); Red Cell Distribution Width 17.5 % (9.3-17.3); White Blood Count 5.7 T/CUMM (4-12)
[2017-12-19 07:49] LABS: Calcium 8.9 MG/DL (8.5-10.1); Osmolality,Calculated 307.3 MOS/KG (273-304)
[2017-12-19] MEDS ORDERED: CLOPIDOGREL 75 MG TABLET PO SCH (08:00)
[2017-12-19 08:27] LABS: Apearance,Urine Clear (Clear); Bilirubin,Urine Negative (Negative); Blood, Urine Negative (Negative); Glucose,Urine (UA) Negative (Negative); Ketones,Urine Negative (Negative); Nitrite,Urine Negative (Negative); Protein,Urine 30 MG/DL; Urine Color Yellow (Yellow); Urine Specific Gravity 1.015 (1.001-1.035); Urine Urobilinogen 0.2 EU/DL (0.2-1.0)
[2017-12-19] MEDS: DEXTROSE 50% 25 GM/50 ML VIAL IV PRN ×4 (08:29→18:45)
[2017-12-19] MEDS: CILOSTAZOL 50 MG TABLET PO SCH (09:18)
[2017-12-19] MEDS: DILTIAZEM CD 180 MG CAPSULE PO SCH (09:18)
[2017-12-19] MEDS: CARVEDILOL 25 MG TABLET PO SCH ×2 (09:18→17:11)
[2017-12-19] MEDS: DOCUSATE SODIUM 100 MG CAPSULE PO SCH ×2 (09:18→21:06)
[2017-12-19] MEDS: APIXABAN 2.5 MG TABLET PO SCH ×2 (09:18→21:07)
[2017-12-19] MEDS: PANTOPRAZOLE 40 MG TABLET PO SCH (09:18)
[2017-12-19] MEDS: ASPIRIN EC 81 MG TABLET PO SCH (09:18)
[2017-12-19] MEDS: POTASSIUM CHLORIDE 10 MEQ TABLET PO SCH ×2 (09:18→21:06)
[2017-12-19] MEDS: POLYETHYLENE GLYCOL POWDER 17 GM PACK PO SCH (09:19)
[2017-12-19] MEDS: CLINDAMYCIN INJ 600 MG in PREMIX 1 EACH IV SCH ×2 (09:25→17:10)
[2017-12-19] MEDS: ALBUTEROL/IPRATROPIUM 3 ML NEB RESP TX PRN (12:29)
[2017-12-19] MEDS ORDERED: FUROSEMIDE 100 MG/10 ML VIAL ONE (13:59)
[2017-12-19] MEDS ORDERED: DEXAMETHASONE 4 MG TABLET PO SCH ×2 (14:20→21:00)
[2017-12-19] MEDS: FUROSEMIDE 40 MG/4 ML VIAL IV SCH (15:00)
[2017-12-19] MEDS: ISOSORBIDE MONONITRATE 30 MG TABLET PO SCH (17:11)
[2017-12-19] MEDS ORDERED: Saccharomyces Boulardii [Florastor] 250 MG PO SCH (21:00)
[2017-12-19] MEDS: ATORVASTATIN 80 MG TABLET PO SCH (21:07)
[2017-12-20] MEDS: CLINDAMYCIN INJ 600 MG in PREMIX 1 EACH IV SCH ×3 (01:39→17:37)
[2017-12-20] MEDS: DEXTROSE 5% 1,000 ML IV SCH (01:40)
[2017-12-20 06:11] LABS: Hematocrit 30.5 VOL% (35.7-47.0); Hemoglobin 8.9 GM/DL (12.0-16.0); Immature Granulocytes % 1.1 %; Immature Granulocytes Absolute 0.04 #; Lymphocytes # 0.4 10*3/uL (1.4-4.0); Lymphocytes % 11.1 % (21.3-54.2); Mean Corpuscular HGB Conc 29.2 GM/DL (32-36); Mean Corpuscular Hemoglobin 24 PG (27-34); Mean Corpuscular Volume 82.9 FL (87-102); Mean Platelet Volume 10.5 FL (9.6-12.0); Monocytes % 0.8 % (1.7-12.7); Neutrophils # 3.3 10*3/uL (1.4-7.4); Platelet Count 217 T/CUMM (130-400); Red Blood Count 3.68 MC/CUMM (3.8-5.5); Red Cell Distribution Width 17.6 % (9.3-17.3); White Blood Count 3.8 T/CUMM (4-12)
[2017-12-20 06:29] LABS: Albumin 2.8 G/DL (3.4-5.0); Calcium 9.3 MG/DL (8.5-10.1); Osmolality,Calculated 307.5 MOS/KG (273-304)
[2017-12-20 06:32] LABS: % Iron Saturation 8.6 % (18-50); Uric Acid 12.6 MG/DL (2.6-6.0)
[2017-12-20 06:33] LABS: Potassium 6.4 MMOL/L (3.5-5.1)
[2017-12-20] MEDS: SODIUM POLYSTYRENE SULFATE 15 GM/60 ML BOTTLE PO SCH ×3 (06:56→20:48)
[2017-12-20] MEDS ORDERED: DEXAMETHASONE 4 MG TABLET PO SCH (08:52)
[2017-12-20] MEDS: FUROSEMIDE 40 MG/4 ML VIAL IV SCH ×2 (09:17→15:00)
[2017-12-20 09:26] LABS: Parathyroid Hormone Intact 376.3 PG/ML (18.4-80.1)
[2017-12-20] MEDS: CARVEDILOL 25 MG TABLET PO SCH ×2 (10:23→17:50)
[2017-12-20] MEDS: PANTOPRAZOLE 40 MG TABLET PO SCH (10:23)
[2017-12-20] MEDS: DOCUSATE SODIUM 100 MG CAPSULE PO SCH ×2 (10:23→20:48)
[2017-12-20] MEDS: APIXABAN 2.5 MG TABLET PO SCH ×2 (10:23→20:48)
[2017-12-20] MEDS: metOLazone 5 MG TABLET PO SCH (10:24)
[2017-12-20] MEDS: DILTIAZEM CD 180 MG CAPSULE PO SCH (10:25)
[2017-12-20] MEDS: ASPIRIN EC 81 MG TABLET PO SCH (10:25)
[2017-12-20] MEDS: POLYETHYLENE GLYCOL POWDER 17 GM PACK PO SCH (10:25)
[2017-12-20] MEDS: CILOSTAZOL 50 MG TABLET PO SCH (10:32)
[2017-12-20] MEDS: ISOSORBIDE MONONITRATE 30 MG TABLET PO SCH (14:21)
[2017-12-20] MEDS: IRON SUCROSE 200 MG in SODIUM CHLORIDE 0.9% 100 ML IV SCH (15:00)
[2017-12-20] MEDS: ATORVASTATIN 80 MG TABLET PO SCH (20:48)
[2017-12-21] MEDS: CLINDAMYCIN INJ 600 MG in PREMIX 1 EACH IV SCH ×3 (01:20→18:05)
[2017-12-21] MEDS: SODIUM POLYSTYRENE SULFATE 15 GM/60 ML BOTTLE PO SCH ×4 (02:25→18:39)
[2017-12-21 05:02] LABS: Hematocrit 27.5 VOL% (35.7-47.0); Immature Granulocytes % 0.3 %; Immature Granulocytes Absolute 0.02 #; Lymphocytes # 0.4 10*3/uL (1.4-4.0); Lymphocytes % 6.4 % (21.3-54.2); Mean Corpuscular HGB Conc 29.1 GM/DL (32-36); Mean Corpuscular Hemoglobin 24 PG (27-34); Mean Corpuscular Volume 82.1 FL (87-102); Mean Platelet Volume 11.1 FL (9.6-12.0); Monocytes # 0.6 10*3/uL (0.11-0.8); Monocytes % 10.4 % (1.7-12.7); Neutrophils # 4.9 10*3/uL (1.4-7.4); Neutrophils % 82.9 % (38.7-73.9); Platelet Count 217 T/CUMM (130-400); Red Blood Count 3.35 MC/CUMM (3.8-5.5); Red Cell Distribution Width 17.3 % (9.3-17.3); White Blood Count 5.9 T/CUMM (4-12)
[2017-12-21 05:31] LABS: Calcium 8.5 MG/DL (8.5-10.1); Osmolality,Calculated 315.4 MOS/KG (273-304); Potassium 4.8 MMOL/L (3.5-5.1)
[2017-12-21 05:35] LABS: Calcium 8.6 MG/DL (8.5-10.1); Osmolality,Calculated 316.3 MOS/KG (273-304); Potassium 4.9 MMOL/L (3.5-5.1)
[2017-12-21] MEDS: DILTIAZEM CD 180 MG CAPSULE PO SCH (10:47)
[2017-12-21] MEDS: CALCITRIOL 0.25 MCG CAPSULE PO SCH (10:47)
[2017-12-21] MEDS: metOLazone 5 MG TABLET PO SCH (10:47)
[2017-12-21] MEDS: ASPIRIN EC 81 MG TABLET PO SCH (10:48)
[2017-12-21] MEDS: PANTOPRAZOLE 40 MG TABLET PO SCH (10:48)
[2017-12-21] MEDS: APIXABAN 2.5 MG TABLET PO SCH ×2 (10:48→20:56)
[2017-12-21] MEDS: DOCUSATE SODIUM 100 MG CAPSULE PO SCH ×2 (10:48→20:56)
[2017-12-21] MEDS: CARVEDILOL 25 MG TABLET PO SCH ×2 (10:48→16:51)
[2017-12-21] MEDS: FUROSEMIDE 40 MG/4 ML VIAL IV SCH ×2 (10:49→16:58)
[2017-12-21] MEDS: POLYETHYLENE GLYCOL POWDER 17 GM PACK PO SCH (10:49)
[2017-12-21 11:41] LABS: Apearance,Urine Slightly Cloudy (Clear); Bilirubin,Urine Negative (Negative); Blood, Urine Large mg/dL (Negative); Glucose,Urine (UA) Negative (Negative); Ketones,Urine Negative (Negative); Nitrite,Urine Negative (Negative); Protein,Urine 100 MG/DL; Urine Color Amber (Yellow); Urine Urobilinogen 0.2 EU/DL (0.2-1.0)
[2017-12-21 11:42] LABS: Bacteria,Urine Occasional /HPF (Few); RBC,Urine TNTC /HPF (0-4); Squamous Epithelial Cell,Urine Few /HPF (0-10)
[2017-12-21] MEDS: ISOSORBIDE MONONITRATE 30 MG TABLET PO SCH (16:51)
[2017-12-21] MEDS: IRON SUCROSE 200 MG in SODIUM CHLORIDE 0.9% 100 ML IV SCH (16:52)
[2017-12-21] MEDS: ATORVASTATIN 80 MG TABLET PO SCH (20:56)
[2017-12-21] MEDS: ALBUTEROL/IPRATROPIUM 3 ML NEB RESP TX PRN (22:36)
[2017-12-22] MEDS: CLINDAMYCIN INJ 600 MG in PREMIX 1 EACH IV SCH ×2 (01:00→09:10)
[2017-12-22] MEDS: SODIUM POLYSTYRENE SULFATE 15 GM/60 ML BOTTLE PO SCH ×4 (01:36→18:15)
[2017-12-22 04:50] LABS: Basophils % 0.3 % (0.0-0.8); Eosinophils # 0.1 10*3/uL (0.0-0.87); Eosinophils % 2.4 % (0.00-10.9); Hematocrit 26.9 VOL% (35.7-47.0); Hemoglobin 8.4 GM/DL (12.0-16.0); Immature Granulocytes % 1.2 %; Immature Granulocytes Absolute 0.07 #; Lymphocytes # 0.8 10*3/uL (1.4-4.0); Lymphocytes % 14.2 % (21.3-54.2); Mean Corpuscular HGB Conc 31.2 GM/DL (32-36); Mean Corpuscular Hemoglobin 25 PG (27-34); Mean Corpuscular Volume 78.4 FL (87-102); Mean Platelet Volume 10.6 FL (9.6-12.0); Monocytes # 0.6 10*3/uL (0.11-0.8); Monocytes % 10.5 % (1.7-12.7); NRBC # 0.02 10*3/uL; Neutrophils # 4.1 10*3/uL (1.4-7.4); Neutrophils % 71.4 % (38.7-73.9); Platelet Count 227 T/CUMM (130-400); Red Blood Count 3.43 MC/CUMM (3.8-5.5); White Blood Count 5.8 T/CUMM (4-12)
[2017-12-22 05:14] LABS: Albumin 2.7 G/DL (3.4-5.0); Calcium 8.4 MG/DL (8.5-10.1); Osmolality,Calculated 315.1 MOS/KG (273-304); Potassium 4.3 MMOL/L (3.5-5.1)
[2017-12-22 05:16] LABS: Calcium 8.3 MG/DL (8.5-10.1); Osmolality,Calculated 312.4 MOS/KG (273-304); Potassium 4.2 MMOL/L (3.5-5.1)
[2017-12-22] MEDS: FUROSEMIDE 80 MG TABLET PO SCH ×2 (09:02→16:01)
[2017-12-22] MEDS: POLYETHYLENE GLYCOL POWDER 17 GM PACK PO SCH (09:02)
[2017-12-22] MEDS: CARVEDILOL 25 MG TABLET PO SCH ×2 (09:02→16:01)
[2017-12-22] MEDS: CALCITRIOL 0.25 MCG CAPSULE PO SCH (09:02)
[2017-12-22] MEDS: DILTIAZEM CD 180 MG CAPSULE PO SCH (09:02)
[2017-12-22] MEDS: APIXABAN 2.5 MG TABLET PO SCH ×2 (09:03→20:48)
[2017-12-22] MEDS: ASPIRIN EC 81 MG TABLET PO SCH (09:03)
[2017-12-22] MEDS: DOCUSATE SODIUM 100 MG CAPSULE PO SCH ×2 (09:03→20:48)
[2017-12-22] MEDS: metOLazone 5 MG TABLET PO SCH (09:03)
[2017-12-22] MEDS: PANTOPRAZOLE 40 MG TABLET PO SCH (09:03)
[2017-12-22] MEDS: ISOSORBIDE MONONITRATE 30 MG TABLET PO SCH (13:26)
[2017-12-22] MEDS: IRON SUCROSE 200 MG in SODIUM CHLORIDE 0.9% 100 ML IV SCH (16:02)
[2017-12-22] MEDS: cefTRIAXone 1,000 MG in SYRINGE 1 EACH IV SCH (16:02)
[2017-12-22] MEDS ORDERED: VANCOMYCIN INJ 2,000 MG in SODIUM CHLORIDE 0.9% 500 ML IV SCH (18:00)
[2017-12-22] MEDS: ATORVASTATIN 80 MG TABLET PO SCH (20:48)
[2017-12-22] MEDS: ALBUTEROL/IPRATROPIUM 3 ML NEB RESP TX PRN (22:23)
[2017-12-23] MEDS: SODIUM POLYSTYRENE SULFATE 15 GM/60 ML BOTTLE PO SCH ×4 (03:37→18:58)
[2017-12-23] MEDS: cefTRIAXone 1,000 MG in SYRINGE 1 EACH IV SCH (03:37)
[2017-12-23 05:17] LABS: Basophils % 0.2 % (0.0-0.8); Eosinophils # 0.3 10*3/uL (0.0-0.87); Eosinophils % 4.4 % (0.00-10.9); Hematocrit 28.1 VOL% (35.7-47.0); Hemoglobin 8.6 GM/DL (12.0-16.0); Immature Granulocytes % 0.7 %; Immature Granulocytes Absolute 0.04 #; Lymphocytes # 0.8 10*3/uL (1.4-4.0); Lymphocytes % 13.5 % (21.3-54.2); Mean Corpuscular HGB Conc 30.6 GM/DL (32-36); Mean Corpuscular Hemoglobin 24 PG (27-34); Mean Corpuscular Volume 78.9 FL (87-102); Mean Platelet Volume 10.4 FL (9.6-12.0); Monocytes # 0.6 10*3/uL (0.11-0.8); Monocytes % 10.7 % (1.7-12.7); Neutrophils # 4.2 10*3/uL (1.4-7.4); Neutrophils % 70.5 % (38.7-73.9); Platelet Count 225 T/CUMM (130-400); Red Blood Count 3.56 MC/CUMM (3.8-5.5); Red Cell Distribution Width 18.1 % (9.3-17.3); White Blood Count 5.9 T/CUMM (4-12)
[2017-12-23 05:28] LABS: Albumin 2.7 G/DL (3.4-5.0); Calcium 8.9 MG/DL (8.5-10.1); Osmolality,Calculated 316.1 MOS/KG (273-304); Potassium 4.3 MMOL/L (3.5-5.1)
[2017-12-23 05:29] LABS: Calcium 9.1 MG/DL (8.5-10.1); Osmolality,Calculated 316.1 MOS/KG (273-304); Potassium 4.2 MMOL/L (3.5-5.1)
[2017-12-23] MEDS ORDERED: VANCOMYCIN INJ 2,250 MG in SODIUM CHLORIDE 0.9% 500 ML IV PRN (08:44)
[2017-12-23] MEDS: ALBUTEROL/IPRATROPIUM 3 ML NEB RESP TX PRN (09:18)
[2017-12-23] MEDS: DOCUSATE SODIUM 100 MG CAPSULE PO SCH ×2 (09:28→21:29)
[2017-12-23] MEDS: CALCITRIOL 0.25 MCG CAPSULE PO SCH (09:28)
[2017-12-23] MEDS: POLYETHYLENE GLYCOL POWDER 17 GM PACK PO SCH (09:28)
[2017-12-23] MEDS: FUROSEMIDE 80 MG TABLET PO SCH ×2 (09:29→16:10)
[2017-12-23] MEDS: DILTIAZEM CD 180 MG CAPSULE PO SCH (09:29)
[2017-12-23] MEDS: metOLazone 5 MG TABLET PO SCH (09:29)
[2017-12-23] MEDS: PANTOPRAZOLE 40 MG TABLET PO SCH (09:30)
[2017-12-23] MEDS: ASPIRIN EC 81 MG TABLET PO SCH (09:30)
[2017-12-23] MEDS: APIXABAN 2.5 MG TABLET PO SCH ×2 (09:30→21:29)
[2017-12-23] MEDS: CARVEDILOL 25 MG TABLET PO SCH ×2 (09:31→16:10)
[2017-12-23] MEDS ORDERED: VANCOMYCIN INJ 3,000 MG in SODIUM CHLORIDE 0.9% 500 ML IV ONE (10:00)
[2017-12-23] MEDS: IRON SUCROSE 200 MG in SODIUM CHLORIDE 0.9% 100 ML IV SCH (14:18)
[2017-12-23] MEDS: ISOSORBIDE MONONITRATE 30 MG TABLET PO SCH (14:18)
[2017-12-23] MEDS ORDERED: LACTOBACILLUS ACIDOPHILUS/BULGARICUS CAPLET PO SCH (21:00)
[2017-12-23] MEDS: ATORVASTATIN 80 MG TABLET PO SCH (21:29)
[2017-12-24] MEDS: SODIUM POLYSTYRENE SULFATE 15 GM/60 ML BOTTLE PO SCH ×3 (00:28→12:23)
[2017-12-24 05:08] LABS: Basophils % 0.2 % (0.0-0.8); Eosinophils # 0.3 10*3/uL (0.0-0.87); Eosinophils % 4.8 % (0.00-10.9); Hematocrit 29.7 VOL% (35.7-47.0); Hemoglobin 8.6 GM/DL (12.0-16.0); Immature Granulocytes % 0.7 %; Immature Granulocytes Absolute 0.04 #; Lymphocytes # 0.9 10*3/uL (1.4-4.0); Lymphocytes % 16.1 % (21.3-54.2); Mean Corpuscular Hemoglobin 24 PG (27-34); Mean Corpuscular Volume 81.8 FL (87-102); Mean Platelet Volume 10.3 FL (9.6-12.0); Monocytes # 0.6 10*3/uL (0.11-0.8); Monocytes % 11.5 % (1.7-12.7); Neutrophils # 3.7 10*3/uL (1.4-7.4); Neutrophils % 66.7 % (38.7-73.9); Platelet Count 219 T/CUMM (130-400); Red Blood Count 3.63 MC/CUMM (3.8-5.5); White Blood Count 5.5 T/CUMM (4-12)
[2017-12-24 05:43] LABS: Osmolality,Calculated 315.3 MOS/KG (273-304); Potassium 4.1 MMOL/L (3.5-5.1)
[2017-12-24] MEDS: ALBUTEROL/IPRATROPIUM 3 ML NEB RESP TX PRN (08:12)
[2017-12-24] MEDS: PANTOPRAZOLE 40 MG TABLET PO SCH (09:02)
[2017-12-24] MEDS: POLYETHYLENE GLYCOL POWDER 17 GM PACK PO SCH (09:02)
[2017-12-24] MEDS: DILTIAZEM CD 180 MG CAPSULE PO SCH (09:02)
[2017-12-24] MEDS: DOCUSATE SODIUM 100 MG CAPSULE PO SCH (09:03)
[2017-12-24] MEDS: metOLazone 5 MG TABLET PO SCH (09:03)
[2017-12-24] MEDS: FUROSEMIDE 80 MG TABLET PO SCH (09:03)
[2017-12-24] MEDS: ASPIRIN EC 81 MG TABLET PO SCH (09:03)
[2017-12-24] MEDS: CARVEDILOL 25 MG TABLET PO SCH (09:04)
[2017-12-24] MEDS: CALCITRIOL 0.25 MCG CAPSULE PO SCH (09:07)
[2017-12-24] MEDS: APIXABAN 2.5 MG TABLET PO SCH (09:07)
[2017-12-24 12:29] VITALS: BP 112/56
== END 2017-12-24 13:24 | disposition swing bed (61) | DRG 637 ==
LOC: EDUNIT# → N.ED 01:12 → SUATTDRO 04:49 → N.EDINP 04:49 → N.TELEN 05:58
PROVIDERS: ADMIT Internal Medicine; ATTEND Internal Medicine Geriatric Medicine

== ENCOUNTER 2018-01-08 20:13 | Inpatient (IN) ==
[2018-01-08] MEDS ORDERED: ALBUTEROL/IPRATROPIUM 3 ML NEB RESP TX STA (20:39)
[2018-01-08 21:22] LABS: Basophils % 0.3 % (0.0-0.8); Eosinophils # 0.2 10*3/uL (0.0-0.87); Eosinophils % 5.4 % (0.00-10.9); Hematocrit 31.7 VOL% (35.7-47.0); Hemoglobin 9.3 GM/DL (12.0-16.0); Immature Granulocytes % 0.3 %; Immature Granulocytes Absolute 0.01 #; Lymphocytes # 0.8 10*3/uL (1.4-4.0); Mean Corpuscular HGB Conc 29.3 GM/DL (32-36); Mean Corpuscular Hemoglobin 25 PG (27-34); Mean Corpuscular Volume 83.9 FL (87-102); Mean Platelet Volume 11.3 FL (9.6-12.0); Monocytes # 0.4 10*3/uL (0.11-0.8); Monocytes % 10.8 % (1.7-12.7); Neutrophils # 2.3 10*3/uL (1.4-7.4); Neutrophils % 61.2 % (38.7-73.9); Platelet Count 182 T/CUMM (130-400); Red Blood Count 3.78 MC/CUMM (3.8-5.5); Red Cell Distribution Width 18.8 % (9.3-17.3); White Blood Count 3.7 T/CUMM (4-12)
[2018-01-08 21:37] LABS: INR 1.1; PT Patient Result 11.6 SECS
[2018-01-08 21:50] LABS: Alanine Aminotransferase 9 U/L (13-56); Alkaline Phosphatase 66 U/L (45-117); Aspartate Amino Transferase 15 U/L (0-37); Blood Urea Nitrogen 123 MG/DL (7-18); Calcium 8.8 MG/DL (8.5-10.1); Glucose 168 MG/DL (74-106); Osmolality,Calculated 319.5 MOS/KG (273-304); Potassium 3.9 MMOL/L (3.5-5.1); Sodium 139 MMOL/L (136-145); Total Protein 6.9 G/DL (6.4-8.3)
[2018-01-08] MEDS ORDERED: ONDANSETRON 4 MG/2 ML VIAL IV PRN (23:19)
[2018-01-08] MEDS ORDERED: DEXTROSE 50% 25 GM/50 ML VIAL IV PRN (23:31)
[2018-01-08] MEDS ORDERED: GLUCAGON 1 MG VIAL IM PRN (23:31)
[2018-01-08] MEDS ORDERED: ACETAMINOPHEN 325 MG TABLET PO PRN (23:36)
[2018-01-09 01:21] LABS: Apearance,Urine CLOUDY (Clear); Bacteria,Urine Many /HPF (Few); Bilirubin,Urine Negative (Negative); Blood, Urine Small mg/dL (Negative); Glucose,Urine (UA) 50 mg/dL (Negative); Ketones,Urine Negative (Negative); Nitrite,Urine Negative (Negative); Protein,Urine 100 MG/DL; RBC,Urine 216 /HPF (0-4); Renal Epithelial Cells,Urine Few /HPF (<1); Squamous Epithelial Cell,Urine Many /HPF (0-10); Transitional Epi Cells,Urine Many /HPF (<1); Urine Color Amber (Yellow); Urine Specific Gravity 1.014 (1.001-1.035); Urine Urobilinogen < 2.0 EU/DL (0.2-1.0); WBC,Urine 4713 /HPF (0-6)
[2018-01-09 06:31] LABS: Basophils % 0.2 % (0.0-0.8); Eosinophils # 0.2 10*3/uL (0.0-0.87); Eosinophils % 5.2 % (0.00-10.9); Hematocrit 30.4 VOL% (35.7-47.0); Hemoglobin 8.8 GM/DL (12.0-16.0); Immature Granulocytes % 0.5 %; Immature Granulocytes Absolute 0.02 #; Lymphocytes # 0.9 10*3/uL (1.4-4.0); Lymphocytes % 19.7 % (21.3-54.2); Mean Corpuscular HGB Conc 28.9 GM/DL (32-36); Mean Corpuscular Hemoglobin 25 PG (27-34); Mean Corpuscular Volume 85.6 FL (87-102); Mean Platelet Volume 10.8 FL (9.6-12.0); Monocytes # 0.5 10*3/uL (0.11-0.8); Monocytes % 11.5 % (1.7-12.7); Neutrophils # 2.8 10*3/uL (1.4-7.4); Neutrophils % 62.9 % (38.7-73.9); Platelet Count 171 T/CUMM (130-400); Red Blood Count 3.55 MC/CUMM (3.8-5.5); Red Cell Distribution Width 18.7 % (9.3-17.3); White Blood Count 4.4 T/CUMM (4-12)
[2018-01-09 06:56] LABS: Calcium 8.8 MG/DL (8.5-10.1); Osmolality,Calculated 321.4 MOS/KG (273-304); Potassium 4.5 MMOL/L (3.5-5.1)
[2018-01-09 07:14] LABS: Anisocytosis 1+; Basophilic Stippling Slight; Poikilocytosis 1+
[2018-01-09] MEDS: metOLazone 5 MG TABLET PO SCH (09:07)
[2018-01-09] MEDS: APIXABAN 2.5 MG TABLET PO SCH ×2 (09:07→21:05)
[2018-01-09] MEDS: CALCITRIOL 0.25 MCG CAPSULE PO SCH (09:07)
[2018-01-09] MEDS: CLOPIDOGREL 75 MG TABLET PO SCH (09:07)
[2018-01-09] MEDS: POLYETHYLENE GLYCOL POWDER 17 GM PACK PO SCH (09:08)
[2018-01-09] MEDS: PANTOPRAZOLE 40 MG TABLET PO SCH (09:08)
[2018-01-09] MEDS: CARVEDILOL 25 MG TABLET PO SCH ×2 (09:08→21:05)
[2018-01-09] MEDS: FUROSEMIDE 40 MG/4 ML VIAL IV SCH (09:08)
[2018-01-09] MEDS: ASPIRIN EC 81 MG TABLET PO SCH (09:08)
[2018-01-09] MEDS: DILTIAZEM CD 180 MG CAPSULE PO SCH (09:08)
[2018-01-09] MEDS: ISOSORBIDE MONONITRATE 30 MG TABLET PO SCH (14:09)
[2018-01-09] MEDS: LORATADINE 10 MG TABLET PO SCH (21:05)
[2018-01-09] MEDS: ATORVASTATIN 80 MG TABLET PO SCH (21:05)
[2018-01-10] MEDS: DILTIAZEM CD 180 MG CAPSULE PO SCH (09:25)
[2018-01-10] MEDS: CALCITRIOL 0.25 MCG CAPSULE PO SCH (09:37)
[2018-01-10] MEDS: POLYETHYLENE GLYCOL POWDER 17 GM PACK PO SCH (09:37)
[2018-01-10] MEDS: metOLazone 5 MG TABLET PO SCH (09:37)
[2018-01-10] MEDS: DOCUSATE SODIUM 100 MG CAPSULE PO PRN ×2 (09:38→20:45)
[2018-01-10] MEDS: CLOPIDOGREL 75 MG TABLET PO SCH (09:38)
[2018-01-10] MEDS: CARVEDILOL 25 MG TABLET PO SCH ×2 (09:38→21:08)
[2018-01-10] MEDS: ASPIRIN EC 81 MG TABLET PO SCH (09:38)
[2018-01-10] MEDS: FUROSEMIDE 40 MG/4 ML VIAL IV SCH (09:38)
[2018-01-10] MEDS: APIXABAN 2.5 MG TABLET PO SCH ×2 (09:38→20:45)
[2018-01-10] MEDS: PANTOPRAZOLE 40 MG TABLET PO SCH (09:38)
[2018-01-10] MEDS: cefTRIAXone 1,000 MG in SYRINGE 1 EACH IV SCH (11:17)
[2018-01-10] MEDS: ISOSORBIDE MONONITRATE 30 MG TABLET PO SCH (13:06)
[2018-01-10] MEDS: ATORVASTATIN 80 MG TABLET PO SCH (20:45)
[2018-01-10] MEDS: LORATADINE 10 MG TABLET PO SCH (20:45)
[2018-01-10] MEDS: ALBUTEROL/IPRATROPIUM 3 ML NEB RESP TX PRN (21:35)
[2018-01-11 04:29] LABS: Calcium 9.3 MG/DL (8.5-10.1); Osmolality,Calculated 321.4 MOS/KG (273-304)
[2018-01-11] MEDS: ALBUTEROL/IPRATROPIUM 3 ML NEB RESP TX PRN (06:20)
[2018-01-11] MEDS: ASPIRIN EC 81 MG TABLET PO SCH (09:20)
[2018-01-11] MEDS: metOLazone 5 MG TABLET PO SCH (09:20)
[2018-01-11] MEDS: CLOPIDOGREL 75 MG TABLET PO SCH (09:20)
[2018-01-11] MEDS: CALCITRIOL 0.25 MCG CAPSULE PO SCH (09:20)
[2018-01-11] MEDS: PANTOPRAZOLE 40 MG TABLET PO SCH (09:20)
[2018-01-11] MEDS: APIXABAN 2.5 MG TABLET PO SCH ×2 (09:21→21:49)
[2018-01-11] MEDS: DILTIAZEM CD 180 MG CAPSULE PO SCH (09:21)
[2018-01-11] MEDS: FUROSEMIDE 40 MG/4 ML VIAL IV SCH (09:21)
[2018-01-11] MEDS: CARVEDILOL 25 MG TABLET PO SCH ×2 (09:21→21:48)
[2018-01-11] MEDS: POLYETHYLENE GLYCOL POWDER 17 GM PACK PO SCH (09:22)
[2018-01-11] MEDS: cefTRIAXone 1,000 MG in SYRINGE 1 EACH IV SCH (12:48)
[2018-01-11] MEDS: ISOSORBIDE MONONITRATE 30 MG TABLET PO SCH (15:18)
[2018-01-11 20:28] LABS: Hepatitis A Ab IgM Quant 0.47 Index; Hepatitis A Ab IgM Result Negative (Negative); Hepatitis B Core IgM Quant 0.15 Index; Hepatitis B Core IgM Result Negative (Negative); Hepatitis B Surface Ag Quant 0.63 Index; Hepatitis B Surface Ag Result Negative (Negative); Hepatitis C Virus Ab Quant 0.15 Index; Hepatitis C Virus Ab Result Negative (Negative)
[2018-01-11] MEDS: ATORVASTATIN 80 MG TABLET PO SCH (21:48)
[2018-01-11] MEDS: LORATADINE 10 MG TABLET PO SCH (21:49)
[2018-01-12 04:51] LABS: Osmolality,Calculated 322.5 MOS/KG (273-304); Potassium 4.1 MMOL/L (3.5-5.1)
[2018-01-12] MEDS: ALBUTEROL/IPRATROPIUM 3 ML NEB RESP TX PRN (08:28)
[2018-01-12] MEDS: ASPIRIN EC 81 MG TABLET PO SCH (08:58)
[2018-01-12] MEDS: APIXABAN 2.5 MG TABLET PO SCH ×2 (08:58→21:16)
[2018-01-12] MEDS: CLOPIDOGREL 75 MG TABLET PO SCH (08:58)
[2018-01-12] MEDS: POLYETHYLENE GLYCOL POWDER 17 GM PACK PO SCH (08:58)
[2018-01-12] MEDS: CARVEDILOL 25 MG TABLET PO SCH ×2 (08:58→21:16)
[2018-01-12] MEDS: PANTOPRAZOLE 40 MG TABLET PO SCH (08:59)
[2018-01-12] MEDS: metOLazone 5 MG TABLET PO SCH (08:59)
[2018-01-12] MEDS: DILTIAZEM CD 180 MG CAPSULE PO SCH (08:59)
[2018-01-12] MEDS: FUROSEMIDE 40 MG/4 ML VIAL IV SCH (08:59)
[2018-01-12] MEDS: CALCITRIOL 0.25 MCG CAPSULE PO SCH (08:59)
[2018-01-12] MEDS ORDERED: BUPIVACAINE 0.25% /EPI 10 ML VIAL ONE (12:19)
[2018-01-12] MEDS ORDERED: LIDOCAINE 1%/EPI INJ 20 ML VIAL ONE (12:19)
[2018-01-12] MEDS ORDERED: HEPARIN 5,000 UNIT/1 ML VIAL ONE (12:19)
[2018-01-12] MEDS ORDERED: fentaNYL 100 MCG/2 ML VIAL ONE (14:10)
[2018-01-12] MEDS ORDERED: MIDAZOLAM 2 MG/2 ML VIAL ONE (14:11)
[2018-01-12] MEDS ORDERED: ONDANSETRON 4 MG/2 ML VIAL ONE (14:12)
[2018-01-12] MEDS ORDERED: KETAMINE 500 MG/10 ML VIAL ONE (14:14)
[2018-01-12] MEDS ORDERED: HEPARIN 10,000 UNIT/10 ML VIAL IV PRN (15:51)
[2018-01-12] MEDS: ISOSORBIDE MONONITRATE 30 MG TABLET PO SCH (15:53)
[2018-01-12] MEDS: cefTRIAXone 1,000 MG in SYRINGE 1 EACH IV SCH (18:32)
[2018-01-12] MEDS: ATORVASTATIN 80 MG TABLET PO SCH (21:15)
[2018-01-12] MEDS: LORATADINE 10 MG TABLET PO SCH (21:16)
[2018-01-13 04:10] LABS: Calcium 8.9 MG/DL (8.5-10.1); Osmolality,Calculated 306.7 MOS/KG (273-304); Potassium 4.2 MMOL/L (3.5-5.1)
[2018-01-13] MEDS: DILTIAZEM CD 180 MG CAPSULE PO SCH (12:55)
[2018-01-13] MEDS: POLYETHYLENE GLYCOL POWDER 17 GM PACK PO SCH (12:55)
[2018-01-13] MEDS: CARVEDILOL 25 MG TABLET PO SCH ×2 (12:56→21:44)
[2018-01-13] MEDS: CALCITRIOL 0.25 MCG CAPSULE PO SCH (13:08)
[2018-01-13] MEDS: metOLazone 5 MG TABLET PO SCH (13:09)
[2018-01-13] MEDS: ASPIRIN EC 81 MG TABLET PO SCH (13:09)
[2018-01-13] MEDS: DOCUSATE SODIUM 100 MG CAPSULE PO PRN (13:09)
[2018-01-13] MEDS: APIXABAN 2.5 MG TABLET PO SCH ×2 (13:09→21:44)
[2018-01-13] MEDS: FUROSEMIDE 40 MG/4 ML VIAL IV SCH (13:10)
[2018-01-13] MEDS: cefTRIAXone 1,000 MG in SYRINGE 1 EACH IV SCH (13:10)
[2018-01-13] MEDS: CLOPIDOGREL 75 MG TABLET PO SCH (13:10)
[2018-01-13] MEDS: PANTOPRAZOLE 40 MG TABLET PO SCH (13:10)
[2018-01-13] MEDS: ISOSORBIDE MONONITRATE 30 MG TABLET PO SCH (13:11)
[2018-01-13] MEDS ORDERED: SACCHAROMYCES BOULARDII 250 MG PO SCH (21:00)
[2018-01-13] MEDS: ATORVASTATIN 80 MG TABLET PO SCH (21:44)
[2018-01-13] MEDS: LORATADINE 10 MG TABLET PO SCH (21:44)
[2018-01-14 04:44] LABS: Calcium 8.6 MG/DL (8.5-10.1); Osmolality,Calculated 298.4 MOS/KG (273-304); Potassium 3.8 MMOL/L (3.5-5.1)
[2018-01-14] MEDS: PANTOPRAZOLE 40 MG TABLET PO SCH (12:26)
[2018-01-14] MEDS: metOLazone 5 MG TABLET PO SCH (12:26)
[2018-01-14] MEDS: CARVEDILOL 25 MG TABLET PO SCH ×2 (12:27→21:43)
[2018-01-14] MEDS: ASPIRIN EC 81 MG TABLET PO SCH (12:27)
[2018-01-14] MEDS: CLOPIDOGREL 75 MG TABLET PO SCH (12:27)
[2018-01-14] MEDS: CALCITRIOL 0.25 MCG CAPSULE PO SCH (12:27)
[2018-01-14] MEDS: APIXABAN 2.5 MG TABLET PO SCH ×2 (12:27→21:42)
[2018-01-14] MEDS: DILTIAZEM CD 180 MG CAPSULE PO SCH (12:28)
[2018-01-14] MEDS: FUROSEMIDE 40 MG/4 ML VIAL IV SCH (12:28)
[2018-01-14] MEDS: POLYETHYLENE GLYCOL POWDER 17 GM PACK PO SCH (12:28)
[2018-01-14] MEDS: cefTRIAXone 1,000 MG in SYRINGE 1 EACH IV SCH (12:28)
[2018-01-14] MEDS: ISOSORBIDE MONONITRATE 30 MG TABLET PO SCH (15:31)
[2018-01-14] MEDS: LORATADINE 10 MG TABLET PO SCH (21:42)
[2018-01-14] MEDS: ATORVASTATIN 80 MG TABLET PO SCH (21:42)
[2018-01-15 06:05] LABS: Calcium 8.7 MG/DL (8.5-10.1); Osmolality,Calculated 291.4 MOS/KG (273-304); Potassium 3.8 MMOL/L (3.5-5.1)
[2018-01-15] MEDS: POLYETHYLENE GLYCOL POWDER 17 GM PACK PO SCH (08:03)
[2018-01-15] MEDS: CLOPIDOGREL 75 MG TABLET PO SCH (08:04)
[2018-01-15] MEDS: DILTIAZEM CD 180 MG CAPSULE PO SCH (08:04)
[2018-01-15] MEDS: ASPIRIN EC 81 MG TABLET PO SCH (08:04)
[2018-01-15] MEDS: PANTOPRAZOLE 40 MG TABLET PO SCH (08:05)
[2018-01-15] MEDS: CALCITRIOL 0.25 MCG CAPSULE PO SCH (08:05)
[2018-01-15] MEDS: CARVEDILOL 25 MG TABLET PO SCH ×2 (08:05→21:33)
[2018-01-15] MEDS: metOLazone 5 MG TABLET PO SCH (08:05)
[2018-01-15] MEDS: APIXABAN 2.5 MG TABLET PO SCH ×2 (08:05→21:33)
[2018-01-15] MEDS: FUROSEMIDE 40 MG/4 ML VIAL IV SCH (08:08)
[2018-01-15] MEDS: cefTRIAXone 1,000 MG in SYRINGE 1 EACH IV SCH (13:00)
[2018-01-15] MEDS: ISOSORBIDE MONONITRATE 30 MG TABLET PO SCH (13:09)
[2018-01-15] MEDS: ALBUTEROL/IPRATROPIUM 3 ML NEB RESP TX PRN (14:10)
[2018-01-15] MEDS: ATORVASTATIN 80 MG TABLET PO SCH (21:33)
[2018-01-15] MEDS: LORATADINE 10 MG TABLET PO SCH (21:34)
[2018-01-16 04:10] LABS: Basophils % 0.2 % (0.0-0.8); Eosinophils # 0.3 10*3/uL (0.0-0.87); Eosinophils % 6.8 % (0.00-10.9); Hematocrit 26.9 VOL% (35.7-47.0); Hemoglobin 7.9 GM/DL (12.0-16.0); Immature Granulocytes % 0.2 %; Immature Granulocytes Absolute 0.01 #; Lymphocytes # 0.9 10*3/uL (1.4-4.0); Mean Corpuscular HGB Conc 29.4 GM/DL (32-36); Mean Corpuscular Hemoglobin 25 PG (27-34); Mean Corpuscular Volume 85.1 FL (87-102); Monocytes # 0.7 10*3/uL (0.11-0.8); Monocytes % 16.2 % (1.7-12.7); Neutrophils # 2.5 10*3/uL (1.4-7.4); Neutrophils % 56.6 % (38.7-73.9); Platelet Count 154 T/CUMM (130-400); Red Blood Count 3.16 MC/CUMM (3.8-5.5); Red Cell Distribution Width 18.4 % (9.3-17.3); White Blood Count 4.4 T/CUMM (4-12)
[2018-01-16 04:26] LABS: Calcium 8.8 MG/DL (8.5-10.1); Osmolality,Calculated 284.5 MOS/KG (273-304); Potassium 3.8 MMOL/L (3.5-5.1)
[2018-01-16 04:38] LABS: Risk Ratio 1.93; VLDL CHOLESTEROL 15.2 MG/DL
[2018-01-16 04:47] LABS: Band Neutrophils 1 % (0-10); Eosinophils 9 % (0-10); Lymphocytes 32 % (20-55); Platelet Estimate Normal; Segmented Neutrophils 56 % (50-85); Total Cells Counted 100
[2018-01-16 06:15] LABS: Apearance,Urine CLOUDY (Clear); Bilirubin,Urine Negative (Negative); Blood, Urine Moderate mg/dL (Negative); Glucose,Urine (UA) Negative (Negative); Ketones,Urine Negative (Negative); Nitrite,Urine Negative (Negative); Protein,Urine 100 MG/DL; RBC,Urine 17 /HPF (0-4); Squamous Epithelial Cell,Urine Occasional /HPF (0-10); Urine Color Yellow (Yellow); Urine Specific Gravity 1.018 (1.001-1.035); Urine Urobilinogen < 2.0 EU/DL (0.2-1.0); WBC,Urine 2654 /HPF (0-6)
[2018-01-16] MEDS: POLYETHYLENE GLYCOL POWDER 17 GM PACK PO SCH (09:13)
[2018-01-16] MEDS: FUROSEMIDE 40 MG/4 ML VIAL IV SCH (09:13)
[2018-01-16] MEDS: CARVEDILOL 25 MG TABLET PO SCH ×2 (09:14→21:05)
[2018-01-16] MEDS: metOLazone 5 MG TABLET PO SCH (09:14)
[2018-01-16] MEDS: PANTOPRAZOLE 40 MG TABLET PO SCH (09:14)
[2018-01-16] MEDS: CLOPIDOGREL 75 MG TABLET PO SCH (09:15)
[2018-01-16] MEDS: DILTIAZEM CD 180 MG CAPSULE PO SCH (09:15)
[2018-01-16] MEDS: CALCITRIOL 0.25 MCG CAPSULE PO SCH (09:15)
[2018-01-16] MEDS: APIXABAN 2.5 MG TABLET PO SCH ×2 (09:15→21:05)
[2018-01-16] MEDS: ASPIRIN EC 81 MG TABLET PO SCH (09:15)
[2018-01-16] MEDS: cefTRIAXone 1,000 MG in SYRINGE 1 EACH IV SCH (11:10)
[2018-01-16] MEDS: ISOSORBIDE MONONITRATE 30 MG TABLET PO SCH (17:00)
[2018-01-16] MEDS: ATORVASTATIN 80 MG TABLET PO SCH (21:05)
[2018-01-16] MEDS: LORATADINE 10 MG TABLET PO SCH (21:05)
[2018-01-17] MEDS: DILTIAZEM CD 180 MG CAPSULE PO SCH ×2 (09:00→13:54)
[2018-01-17] MEDS: POLYETHYLENE GLYCOL POWDER 17 GM PACK PO SCH (10:02)
[2018-01-17] MEDS: CALCITRIOL 0.25 MCG CAPSULE PO SCH (10:02)
[2018-01-17] MEDS: FUROSEMIDE 40 MG/4 ML VIAL IV SCH (10:02)
[2018-01-17] MEDS: PANTOPRAZOLE 40 MG TABLET PO SCH (10:03)
[2018-01-17] MEDS: ASPIRIN EC 81 MG TABLET PO SCH (10:03)
[2018-01-17] MEDS: metOLazone 5 MG TABLET PO SCH (10:03)
[2018-01-17] MEDS: CLOPIDOGREL 75 MG TABLET PO SCH (10:03)
[2018-01-17] MEDS: APIXABAN 2.5 MG TABLET PO SCH ×2 (10:03→20:58)
[2018-01-17] MEDS: cefTRIAXone 1,000 MG in SYRINGE 1 EACH IV SCH (11:19)
[2018-01-17] MEDS: CARVEDILOL 25 MG TABLET PO SCH ×2 (12:17→21:00)
[2018-01-17] MEDS: ISOSORBIDE MONONITRATE 30 MG TABLET PO SCH (13:54)
[2018-01-17] MEDS: DOCUSATE SODIUM 100 MG CAPSULE PO PRN (20:58)
[2018-01-17] MEDS: LORATADINE 10 MG TABLET PO SCH (20:58)
[2018-01-17] MEDS: ATORVASTATIN 80 MG TABLET PO SCH (20:58)
[2018-01-18 04:57] LABS: Basophils % 0.2 % (0.0-0.8); Eosinophils # 0.4 10*3/uL (0.0-0.87); Eosinophils % 7.9 % (0.00-10.9); Hematocrit 28.6 VOL% (35.7-47.0); Hemoglobin 8.2 GM/DL (12.0-16.0); Immature Granulocytes % 0.4 %; Immature Granulocytes Absolute 0.02 #; Lymphocytes # 0.9 10*3/uL (1.4-4.0); Lymphocytes % 18.8 % (21.3-54.2); Mean Corpuscular HGB Conc 28.7 GM/DL (32-36); Mean Corpuscular Hemoglobin 24 PG (27-34); Mean Corpuscular Volume 85.1 FL (87-102); Mean Platelet Volume 10.6 FL (9.6-12.0); Monocytes # 0.6 10*3/uL (0.11-0.8); Monocytes % 12.4 % (1.7-12.7); Neutrophils # 2.7 10*3/uL (1.4-7.4); Neutrophils % 60.3 % (38.7-73.9); Platelet Count 166 T/CUMM (130-400); Red Blood Count 3.36 MC/CUMM (3.8-5.5); Red Cell Distribution Width 18.5 % (9.3-17.3); White Blood Count 4.5 T/CUMM (4-12)
[2018-01-18 05:15] LABS: Calcium 8.4 MG/DL (8.5-10.1); Osmolality,Calculated 286.7 MOS/KG (273-304); Potassium 4.1 MMOL/L (3.5-5.1)
[2018-01-18 05:21] LABS: Acanthocytes Few; Platelet Estimate Normal; Schistocytes Slight
[2018-01-18] MEDS: DILTIAZEM CD 180 MG CAPSULE PO SCH (08:33)
[2018-01-18] MEDS: ASPIRIN EC 81 MG TABLET PO SCH (08:33)
[2018-01-18] MEDS: metOLazone 5 MG TABLET PO SCH (08:34)
[2018-01-18] MEDS: POLYETHYLENE GLYCOL POWDER 17 GM PACK PO SCH (08:34)
[2018-01-18] MEDS: PANTOPRAZOLE 40 MG TABLET PO SCH (08:34)
[2018-01-18] MEDS: CALCITRIOL 0.25 MCG CAPSULE PO SCH (08:34)
[2018-01-18] MEDS: APIXABAN 2.5 MG TABLET PO SCH ×2 (08:34→21:01)
[2018-01-18] MEDS: CLOPIDOGREL 75 MG TABLET PO SCH (08:34)
[2018-01-18] MEDS: FUROSEMIDE 40 MG/4 ML VIAL IV SCH (08:35)
[2018-01-18] MEDS: CARVEDILOL 25 MG TABLET PO SCH ×2 (08:42→21:09)
[2018-01-18] MEDS ORDERED: VANCOMYCIN INJ 1,000 MG in SODIUM CHLORIDE 0.9% 250 ML IV ONE ×2 (10:30→15:00)
[2018-01-18] MEDS: ISOSORBIDE MONONITRATE 30 MG TABLET PO SCH (14:54)
[2018-01-18] MEDS: cefTRIAXone 1,000 MG in SYRINGE 1 EACH IV SCH (14:56)
[2018-01-18] MEDS ORDERED: VANCOMYCIN INJ 1,000 MG in SODIUM CHLORIDE 0.9% 250 ML IV PRN (15:15)
[2018-01-18] MEDS ORDERED: GENTAMICIN INJ 160 MG in SODIUM CHLORIDE 0.9% 100 ML IV PRN (15:16)
[2018-01-18] MEDS ORDERED: VANCOMYCIN INJ 2,500 MG in SODIUM CHLORIDE 0.9% 500 ML IV ONE (17:00)
[2018-01-18] MEDS ORDERED: GENTAMICIN INJ 200 MG in SODIUM CHLORIDE 0.9% 100 ML IV ONE (18:00)
[2018-01-18] MEDS: LORATADINE 10 MG TABLET PO SCH (21:00)
[2018-01-18] MEDS: ATORVASTATIN 80 MG TABLET PO SCH (21:00)
[2018-01-18] MEDS: DOCUSATE SODIUM 100 MG CAPSULE PO PRN (21:01)
[2018-01-19 05:42] LABS: Basophils % 0.7 % (0.0-0.8); Eosinophils # 0.3 10*3/uL (0.0-0.87); Hematocrit 27.3 VOL% (35.7-47.0); Hemoglobin 7.9 GM/DL (12.0-16.0); Immature Granulocytes % 0.2 %; Immature Granulocytes Absolute 0.01 #; Lymphocytes % 21.3 % (21.3-54.2); Mean Corpuscular HGB Conc 28.9 GM/DL (32-36); Mean Corpuscular Hemoglobin 25 PG (27-34); Mean Corpuscular Volume 84.8 FL (87-102); Mean Platelet Volume 11.3 FL (9.6-12.0); Monocytes # 0.6 10*3/uL (0.11-0.8); Monocytes % 12.3 % (1.7-12.7); Neutrophils # 2.7 10*3/uL (1.4-7.4); Neutrophils % 58.5 % (38.7-73.9); Platelet Count 158 T/CUMM (130-400); Red Blood Count 3.22 MC/CUMM (3.8-5.5); Red Cell Distribution Width 18.4 % (9.3-17.3); White Blood Count 4.6 T/CUMM (4-12)
[2018-01-19 05:59] LABS: Calcium 8.8 MG/DL (8.5-10.1); Osmolality,Calculated 282.8 MOS/KG (273-304); Potassium 4.2 MMOL/L (3.5-5.1)
[2018-01-19] MEDS: DILTIAZEM CD 180 MG CAPSULE PO SCH (08:59)
[2018-01-19] MEDS: CALCITRIOL 0.25 MCG CAPSULE PO SCH (08:59)
[2018-01-19] MEDS: ASPIRIN EC 81 MG TABLET PO SCH (08:59)
[2018-01-19] MEDS: APIXABAN 2.5 MG TABLET PO SCH ×2 (09:00→21:00)
[2018-01-19] MEDS: PANTOPRAZOLE 40 MG TABLET PO SCH (09:00)
[2018-01-19] MEDS: metOLazone 5 MG TABLET PO SCH (09:00)
[2018-01-19] MEDS: CARVEDILOL 25 MG TABLET PO SCH (09:00)
[2018-01-19] MEDS: CLOPIDOGREL 75 MG TABLET PO SCH (09:01)
[2018-01-19] MEDS: POLYETHYLENE GLYCOL POWDER 17 GM PACK PO SCH (10:02)
[2018-01-19] MEDS: FUROSEMIDE 40 MG/4 ML VIAL IV SCH (10:03)
[2018-01-19] MEDS ORDERED: GENTAMICIN INJ 160 MG in SODIUM CHLORIDE 0.9% 100 ML IV ONE (15:00)
[2018-01-19] MEDS: ISOSORBIDE MONONITRATE 30 MG TABLET PO SCH (15:06)
[2018-01-19] MEDS ORDERED: VANCOMYCIN INJ 1,000 MG in SODIUM CHLORIDE 0.9% 250 ML IV ONE (16:00)
[2018-01-19] MEDS: ATORVASTATIN 80 MG TABLET PO SCH (21:00)
[2018-01-19] MEDS: LORATADINE 10 MG TABLET PO SCH (21:00)
[2018-01-20 05:19] LABS: Calcium 9.1 MG/DL (8.5-10.1); Osmolality,Calculated 288.5 MOS/KG (273-304); Potassium 4.3 MMOL/L (3.5-5.1)
[2018-01-20 05:30] LABS: Basophils % 0.2 % (0.0-0.8); Eosinophils # 0.3 10*3/uL (0.0-0.87); Hematocrit 28.7 VOL% (35.7-47.0); Immature Granulocytes % 0.2 %; Immature Granulocytes Absolute 0.01 #; Lymphocytes # 0.9 10*3/uL (1.4-4.0); Lymphocytes % 19.5 % (21.3-54.2); Mean Corpuscular HGB Conc 28.6 GM/DL (32-36); Mean Corpuscular Hemoglobin 25 PG (27-34); Mean Corpuscular Volume 86.7 FL (87-102); Monocytes # 0.6 10*3/uL (0.11-0.8); Monocytes % 13.6 % (1.7-12.7); Neutrophils # 2.8 10*3/uL (1.4-7.4); Neutrophils % 59.5 % (38.7-73.9); Platelet Count 144 T/CUMM (130-400); Red Blood Count 3.31 MC/CUMM (3.8-5.5); Red Cell Distribution Width 18.3 % (9.3-17.3); White Blood Count 4.7 T/CUMM (4-12)
[2018-01-20 05:33] LABS: Hemoglobin 8.2 GM/DL (12.0-16.0)
[2018-01-20 05:48] LABS: Hypochromasia 1+; Ovalocytes Slight
[2018-01-20 05:55] LABS: Platelet Estimate Normal
[2018-01-20] MEDS: POLYETHYLENE GLYCOL POWDER 17 GM PACK PO SCH (12:23)
[2018-01-20] MEDS: APIXABAN 2.5 MG TABLET PO SCH ×2 (12:23→21:04)
[2018-01-20] MEDS: CALCITRIOL 0.25 MCG CAPSULE PO SCH (12:23)
[2018-01-20] MEDS: CLOPIDOGREL 75 MG TABLET PO SCH (12:24)
[2018-01-20] MEDS: PANTOPRAZOLE 40 MG TABLET PO SCH (12:24)
[2018-01-20] MEDS: metOLazone 5 MG TABLET PO SCH (12:24)
[2018-01-20] MEDS: FUROSEMIDE 40 MG/4 ML VIAL IV SCH (12:25)
[2018-01-20] MEDS: MENTHOL/ZINC OXIDE OINT 71 GM JAR TOP SCH (12:25)
[2018-01-20] MEDS: ASPIRIN EC 81 MG TABLET PO SCH (12:58)
[2018-01-20] MEDS: ISOSORBIDE MONONITRATE 30 MG TABLET PO SCH (14:28)
[2018-01-20] MEDS ORDERED: GENTAMICIN INJ 160 MG in SODIUM CHLORIDE 0.9% 100 ML IV ONE (15:30)
[2018-01-20] MEDS ORDERED: VANCOMYCIN INJ 1,000 MG in SODIUM CHLORIDE 0.9% 250 ML IV ONE (16:00)
[2018-01-20] MEDS: ATORVASTATIN 80 MG TABLET PO SCH (21:04)
[2018-01-20] MEDS: LORATADINE 10 MG TABLET PO SCH (21:04)
[2018-01-21 04:56] LABS: Basophils % 0.7 % (0.0-0.8); Eosinophils # 0.3 10*3/uL (0.0-0.87); Eosinophils % 6.9 % (0.00-10.9); Immature Granulocytes % 0.2 %; Immature Granulocytes Absolute 0.01 #; Lymphocytes % 21.4 % (21.3-54.2); Mean Corpuscular HGB Conc 27.9 GM/DL (32-36); Mean Corpuscular Hemoglobin 24 PG (27-34); Mean Corpuscular Volume 87.3 FL (87-102); Mean Platelet Volume 10.4 FL (9.6-12.0); Monocytes # 0.6 10*3/uL (0.11-0.8); Monocytes % 13.8 % (1.7-12.7); Neutrophils # 2.6 10*3/uL (1.4-7.4); Platelet Count 141 T/CUMM (130-400); Red Blood Count 3.32 MC/CUMM (3.8-5.5); Red Cell Distribution Width 18.2 % (9.3-17.3); White Blood Count 4.5 T/CUMM (4-12)
[2018-01-21 05:07] LABS: Hematocrit 28.9 VOL% (35.7-47.0); Hemoglobin 8.3 GM/DL (12.0-16.0)
[2018-01-21 05:12] LABS: Osmolality,Calculated 283.5 MOS/KG (273-304); Potassium 4.1 MMOL/L (3.5-5.1)
[2018-01-21 05:16] LABS: Hypochromasia 1+; Microcytosis 1+; Ovalocytes Few
[2018-01-21 05:17] LABS: Acanthocytes Few; Anisocytosis 1+; Platelet Estimate Adequate
[2018-01-21] MEDS: metOLazone 5 MG TABLET PO SCH (08:41)
[2018-01-21] MEDS: CALCITRIOL 0.25 MCG CAPSULE PO SCH (08:41)
[2018-01-21] MEDS: PANTOPRAZOLE 40 MG TABLET PO SCH (08:41)
[2018-01-21] MEDS: ASPIRIN EC 81 MG TABLET PO SCH (08:41)
[2018-01-21] MEDS: APIXABAN 2.5 MG TABLET PO SCH ×2 (08:41→20:31)
[2018-01-21] MEDS: CLOPIDOGREL 75 MG TABLET PO SCH (08:41)
[2018-01-21] MEDS: FUROSEMIDE 40 MG/4 ML VIAL IV SCH (08:42)
[2018-01-21] MEDS: POLYETHYLENE GLYCOL POWDER 17 GM PACK PO SCH (08:42)
[2018-01-21] MEDS ORDERED: ALBUTEROL/IPRATROPIUM 3 ML NEB RESP TX ONE (11:25)
[2018-01-21] MEDS: ISOSORBIDE MONONITRATE 30 MG TABLET PO SCH (13:28)
[2018-01-21] MEDS: MENTHOL/ZINC OXIDE OINT 71 GM JAR TOP SCH (13:28)
[2018-01-21] MEDS: LORATADINE 10 MG TABLET PO SCH (20:31)
[2018-01-21] MEDS: ATORVASTATIN 80 MG TABLET PO SCH (20:31)
[2018-01-22] MEDS ORDERED: GENTAMICIN INJ 50 ML IV PRN (08:30)
[2018-01-22] MEDS ORDERED: VANCOMYCIN INJ 750 MG in SODIUM CHLORIDE 0.9% 250 ML IV PRN (08:30)
[2018-01-22] MEDS: FUROSEMIDE 40 MG/4 ML VIAL IV SCH (13:30)
[2018-01-22] MEDS: CALCITRIOL 0.25 MCG CAPSULE PO SCH (13:32)
[2018-01-22] MEDS: APIXABAN 2.5 MG TABLET PO SCH ×2 (13:32→21:32)
[2018-01-22] MEDS: POLYETHYLENE GLYCOL POWDER 17 GM PACK PO SCH (13:32)
[2018-01-22] MEDS: PANTOPRAZOLE 40 MG TABLET PO SCH (13:33)
[2018-01-22] MEDS: MENTHOL/ZINC OXIDE OINT 71 GM JAR TOP SCH (13:33)
[2018-01-22] MEDS: ASPIRIN EC 81 MG TABLET PO SCH (13:33)
[2018-01-22] MEDS: metOLazone 5 MG TABLET PO SCH (13:33)
[2018-01-22] MEDS: CLOPIDOGREL 75 MG TABLET PO SCH (13:33)
[2018-01-22] MEDS: ISOSORBIDE MONONITRATE 30 MG TABLET PO SCH (13:35)
[2018-01-22] MEDS ORDERED: VANCOMYCIN INJ 750 MG in SODIUM CHLORIDE 0.9% 250 ML IV ONE (21:00)
[2018-01-22] MEDS: LORATADINE 10 MG TABLET PO SCH (21:32)
[2018-01-22] MEDS: ATORVASTATIN 80 MG TABLET PO SCH (21:32)
[2018-01-22] MEDS: ACETAMINOPHEN 325 MG TABLET PO PRN (21:36)
[2018-01-23] MEDS: FUROSEMIDE 40 MG/4 ML VIAL IV SCH (09:18)
[2018-01-23] MEDS: CALCITRIOL 0.25 MCG CAPSULE PO SCH (09:19)
[2018-01-23] MEDS: CLOPIDOGREL 75 MG TABLET PO SCH (09:20)
[2018-01-23] MEDS: APIXABAN 2.5 MG TABLET PO SCH ×2 (09:20→21:08)
[2018-01-23] MEDS: ASPIRIN EC 81 MG TABLET PO SCH (09:20)
[2018-01-23] MEDS: POLYETHYLENE GLYCOL POWDER 17 GM PACK PO SCH (09:21)
[2018-01-23] MEDS: PANTOPRAZOLE 40 MG TABLET PO SCH (09:21)
[2018-01-23] MEDS: metOLazone 5 MG TABLET PO SCH (09:21)
[2018-01-23] MEDS: MENTHOL/ZINC OXIDE OINT 71 GM JAR TOP SCH (09:46)
[2018-01-23] MEDS: ISOSORBIDE MONONITRATE 30 MG TABLET PO SCH (13:54)
[2018-01-23] MEDS: LORATADINE 10 MG TABLET PO SCH (21:08)
[2018-01-23] MEDS: ATORVASTATIN 80 MG TABLET PO SCH (21:08)
[2018-01-24] MEDS: FUROSEMIDE 40 MG/4 ML VIAL IV SCH (08:12)
[2018-01-24] MEDS: POLYETHYLENE GLYCOL POWDER 17 GM PACK PO SCH (08:12)
[2018-01-24] MEDS: APIXABAN 2.5 MG TABLET PO SCH ×2 (08:13→21:01)
[2018-01-24] MEDS: CALCITRIOL 0.25 MCG CAPSULE PO SCH (08:14)
[2018-01-24] MEDS: PANTOPRAZOLE 40 MG TABLET PO SCH (08:14)
[2018-01-24] MEDS: ASPIRIN EC 81 MG TABLET PO SCH (08:14)
[2018-01-24] MEDS: CLOPIDOGREL 75 MG TABLET PO SCH (08:14)
[2018-01-24] MEDS: metOLazone 5 MG TABLET PO SCH (08:15)
[2018-01-24] MEDS: MENTHOL/ZINC OXIDE OINT 71 GM JAR TOP SCH (08:57)
[2018-01-24] MEDS: ISOSORBIDE MONONITRATE 30 MG TABLET PO SCH (13:06)
[2018-01-24] MEDS: LORATADINE 10 MG TABLET PO SCH (21:00)
[2018-01-24] MEDS: ATORVASTATIN 80 MG TABLET PO SCH (21:01)
[2018-01-25] MEDS: ACETAMINOPHEN 325 MG TABLET PO PRN (02:10)
[2018-01-25] MEDS: POLYETHYLENE GLYCOL POWDER 17 GM PACK PO SCH (12:44)
[2018-01-25] MEDS: CALCITRIOL 0.25 MCG CAPSULE PO SCH (12:44)
[2018-01-25] MEDS: APIXABAN 2.5 MG TABLET PO SCH ×2 (12:44→21:09)
[2018-01-25] MEDS: CLOPIDOGREL 75 MG TABLET PO SCH (12:44)
[2018-01-25] MEDS: metOLazone 5 MG TABLET PO SCH (12:44)
[2018-01-25] MEDS: MENTHOL/ZINC OXIDE OINT 71 GM JAR TOP SCH (12:45)
[2018-01-25] MEDS: PANTOPRAZOLE 40 MG TABLET PO SCH (12:45)
[2018-01-25] MEDS: FUROSEMIDE 40 MG/4 ML VIAL IV SCH (12:45)
[2018-01-25] MEDS: ASPIRIN EC 81 MG TABLET PO SCH (12:45)
[2018-01-25] MEDS: ISOSORBIDE MONONITRATE 30 MG TABLET PO SCH (14:31)
[2018-01-25] MEDS ORDERED: VANCOMYCIN INJ 750 MG in SODIUM CHLORIDE 0.9% 250 ML IV ONE (20:00)
[2018-01-25] MEDS ORDERED: GENTAMICIN INJ 80 MG in PREMIX 1 EACH IV ONE (21:00)
[2018-01-25] MEDS: LORATADINE 10 MG TABLET PO SCH (21:09)
[2018-01-25] MEDS: ATORVASTATIN 80 MG TABLET PO SCH (21:09)
[2018-01-26 08:06] VITALS: BP 100/66
[2018-01-26] MEDS: metOLazone 5 MG TABLET PO SCH (09:01)
[2018-01-26] MEDS: FUROSEMIDE 40 MG/4 ML VIAL IV SCH (09:01)
[2018-01-26] MEDS: APIXABAN 2.5 MG TABLET PO SCH (09:01)
[2018-01-26] MEDS: ASPIRIN EC 81 MG TABLET PO SCH (09:01)
[2018-01-26] MEDS: CLOPIDOGREL 75 MG TABLET PO SCH (09:01)
[2018-01-26] MEDS: CALCITRIOL 0.25 MCG CAPSULE PO SCH (09:01)
[2018-01-26] MEDS: PANTOPRAZOLE 40 MG TABLET PO SCH (09:01)
[2018-01-26] MEDS: POLYETHYLENE GLYCOL POWDER 17 GM PACK PO SCH (09:01)
== END 2018-01-26 10:08 | disposition home health service (06) | DRG 291 ==
LOC: EDUNIT# → EDBD → N.ED 20:13 → SUATTDRO 23:19 → N.EDINP 23:19 → N.2E 01-09 00:40 → N.TELES 01-09 01:39
PROVIDERS: ADMIT Internal Medicine Infectious Disease; ATTEND Internal Medicine

== ENCOUNTER 2019-05-05 03:39 | Inpatient (IN) ==
[2019-05-05] MEDS ORDERED: methylPREDNISolone SOD SUC 125 MG/2 ML VIAL IV STA (03:53)
[2019-05-05] MEDS ORDERED: FUROSEMIDE 100 MG/10 ML VIAL IV STA (03:53)
[2019-05-05] MEDS ORDERED: ONDANSETRON 4 MG/2 ML VIAL IV STA (03:53)
[2019-05-05] MEDS ORDERED: NITROGLYCERIN 2% OINT 1 INCH/GM PACK TOP STA (03:53)
[2019-05-05] MEDS ORDERED: PIPERACILLIN/TAZOBACTAM 3,375 MG in SODIUM CHLORIDE 0.9% 100 ML IV STA (03:53)
[2019-05-05] MEDS ORDERED: ALBUTEROL 2.5 MG/3 ML NEB RESP TX SCH (04:00)
[2019-05-05 04:08] LABS: Basophils % 0.4 % (0.0-0.8); Eosinophils # 0.1 10*3/uL (0.0-0.87); Eosinophils % 1.2 % (0.00-10.9); Hematocrit 37.4 VOL% (35.7-47.0); Hemoglobin 11.7 GM/DL (12.0-16.0); Immature Granulocytes % 0.4 %; Immature Granulocytes Absolute 0.04 #; Lymphocytes # 1.3 10*3/uL (1.4-4.0); Lymphocytes % 11.7 % (21.3-54.2); Mean Corpuscular HGB Conc 31.3 GM/DL (32-36); Mean Corpuscular Volume 87.6 FL (87-102); Mean Platelet Volume 10.7 FL (9.6-12.0); Monocytes % 9.8 % (1.7-12.7); Neutrophils % 76.5 % (38.7-73.9); Platelet Count 214 T/CUMM (130-400); Red Blood Count 4.27 MC/CUMM (3.8-5.5); Red Cell Distribution Width 13.1 % (9.3-17.3); White Blood Count 10.9 T/CUMM (4-12)
[2019-05-05 04:16] LABS: ABG Base Excess 5.9 MMOL/L (-2.5-2.5); ABG HCO3 29.7 MMOL/L (20-26); ABG Oxygen Saturation 97.1 % (95-100); ABG PCO2 49.1 MM HG (35-48); ABG PH 7.416 (7.35-7.45); ABG PO2 86.6 MM HG (80-95); ABG TCO2 28.1 MMOL/L (23-27); Allen Test Positive
[2019-05-05 04:20] LABS: INR 1.1; PT Patient Result 11.6 SECS (9.6-12.2)
[2019-05-05 04:24] LABS: Albumin 3.5 G/DL (3.4-5.0); Bilirubin,Total 0.6 MG/DL (0.2-1.0); Calcium 9.3 MG/DL (8.5-10.1); Osmolality,Calculated 280.7 MOS/KG (273-304); Total Protein 8.1 G/DL (6.4-8.3)
[2019-05-05] MEDS ORDERED: ONDANSETRON 4 MG/2 ML VIAL IV PRN (05:39)
[2019-05-05] MEDS ORDERED: ACETAMINOPHEN 325 MG TABLET PO PRN (05:39)
[2019-05-05] MEDS ORDERED: DEXTROSE 50% 25 GM/50 ML VIAL IV PRN (06:21)
[2019-05-05] MEDS ORDERED: GLUCAGON 1 MG VIAL IM PRN (06:21)
[2019-05-05] MEDS: ALBUTEROL/IPRATROPIUM 3 ML NEB RESP TX SCH ×3 (07:08→19:35)
[2019-05-05] MEDS: FUROSEMIDE 40 MG TABLET PO SCH (09:41)
[2019-05-05] MEDS: AZITHROMYCIN 250 MG TABLET PO SCH (09:41)
[2019-05-05] MEDS: amLODIPine 10 MG TABLET PO SCH (09:41)
[2019-05-05] MEDS: PANTOPRAZOLE 40 MG TABLET PO SCH (09:41)
[2019-05-05] MEDS: APIXABAN 2.5 MG TABLET PO SCH ×2 (09:41→22:15)
[2019-05-05] MEDS: ASPIRIN EC 81 MG TABLET PO SCH (09:42)
[2019-05-05] MEDS: INSULIN REGULAR 100 UNIT/ML SUBCUT SCH ×4 (09:44→22:15)
[2019-05-05 14:48] LABS: Apearance,Urine Slightly Hazy (Clear); Bacteria,Urine Occasional /HPF (Few); Bilirubin,Urine Negative (Negative); Blood, Urine Negative (Negative); Glucose,Urine (UA) Negative (Negative); Ketones,Urine Negative (Negative); Mucus,Urine Occasional /LPF (Occasional); Nitrite,Urine Negative (Negative); Protein,Urine 30 MG/DL; RBC,Urine 3 /HPF (0-4); Squamous Epithelial Cell,Urine Occasional /HPF (0-10); Urine Color Amber (Yellow); Urine Specific Gravity 1.017 (1.001-1.035); Urine Urobilinogen < 2.0 EU/DL (0.2-1.0); WBC,Urine 3 /HPF (0-6)
[2019-05-05] MEDS: ATORVASTATIN 80 MG TABLET PO SCH (22:15)
[2019-05-06] MEDS: ALBUTEROL/IPRATROPIUM 3 ML NEB RESP TX SCH ×4 (00:58→21:15)
[2019-05-06 04:02] LABS: Basophils % 0.1 % (0.0-0.8); Hematocrit 35.5 VOL% (35.7-47.0); Immature Granulocytes % 0.5 %; Immature Granulocytes Absolute 0.07 #; Lymphocytes # 1.1 10*3/uL (1.4-4.0); Lymphocytes % 7.6 % (21.3-54.2); Mean Corpuscular Volume 89.2 FL (87-102); Mean Platelet Volume 10.7 FL (9.6-12.0); Monocytes % 7.7 % (1.7-12.7); Neutrophils % 84.1 % (38.7-73.9); Platelet Count 225 T/CUMM (130-400); Red Blood Count 3.98 MC/CUMM (3.8-5.5); Red Cell Distribution Width 13.1 % (9.3-17.3); White Blood Count 14.5 T/CUMM (4-12)
[2019-05-06 04:31] LABS: Albumin 3.1 G/DL (3.4-5.0); Bilirubin,Total 0.6 MG/DL (0.2-1.0); Calcium 9.7 MG/DL (8.5-10.1); Osmolality,Calculated 291.4 MOS/KG (273-304)
[2019-05-06 07:10] LABS: Band Neutrophils 5 % (0-10); Lymphocytes 15 % (20-55); Segmented Neutrophils 71 % (50-85); Total Cells Counted 100
[2019-05-06 07:11] LABS: Basophilic Stippling Slight; Hypersegmented Neutrophil Few; Platelet Estimate Normal
[2019-05-06 07:12] LABS: Anisocytosis Slight
[2019-05-06] MEDS: INSULIN REGULAR 100 UNIT/ML SUBCUT SCH ×4 (07:20→21:43)
[2019-05-06] MEDS: AZITHROMYCIN 250 MG TABLET PO SCH (11:53)
[2019-05-06] MEDS: ASPIRIN EC 81 MG TABLET PO SCH (11:53)
[2019-05-06] MEDS: FUROSEMIDE 40 MG TABLET PO SCH (11:53)
[2019-05-06] MEDS: PANTOPRAZOLE 40 MG TABLET PO SCH (11:54)
[2019-05-06] MEDS: APIXABAN 2.5 MG TABLET PO SCH ×2 (11:54→21:14)
[2019-05-06] MEDS: amLODIPine 5 MG TABLET PO SCH (11:58)
[2019-05-06] MEDS: ATORVASTATIN 80 MG TABLET PO SCH (21:14)
[2019-05-07] MEDS: ALBUTEROL/IPRATROPIUM 3 ML NEB RESP TX SCH ×4 (01:14→19:11)
[2019-05-07 06:01] LABS: Basophils # 0.1 10*3/uL (0.0-0.2); Basophils % 0.6 % (0.0-0.8); Eosinophils # 0.1 10*3/uL (0.0-0.87); Eosinophils % 0.9 % (0.00-10.9); Hematocrit 39.3 VOL% (35.7-47.0); Hemoglobin 11.9 GM/DL (12.0-16.0); Immature Granulocytes % 1.9 %; Immature Granulocytes Absolute 0.25 #; Lymphocytes # 1.8 10*3/uL (1.4-4.0); Lymphocytes % 13.2 % (21.3-54.2); Mean Corpuscular HGB Conc 30.3 GM/DL (32-36); Mean Corpuscular Volume 90.8 FL (87-102); Mean Platelet Volume 10.4 FL (9.6-12.0); Monocytes % 7.2 % (1.7-12.7); Neutrophils % 76.2 % (38.7-73.9); Platelet Count 275 T/CUMM (130-400); Red Blood Count 4.33 MC/CUMM (3.8-5.5); Red Cell Distribution Width 13.2 % (9.3-17.3); White Blood Count 13.2 T/CUMM (4-12)
[2019-05-07 06:42] LABS: Risk Ratio 2.5; Thyroid Stimulating Hormone 0.565 uIU/ml (0.358-3.74); VLDL CHOLESTEROL 21.8 MG/DL
[2019-05-07] MEDS: FUROSEMIDE 40 MG TABLET PO SCH (08:31)
[2019-05-07] MEDS: APIXABAN 2.5 MG TABLET PO SCH ×2 (08:32→21:23)
[2019-05-07] MEDS: INSULIN REGULAR 100 UNIT/ML SUBCUT SCH ×4 (08:32→21:24)
[2019-05-07] MEDS: PANTOPRAZOLE 40 MG TABLET PO SCH (08:32)
[2019-05-07] MEDS: amLODIPine 10 MG TABLET PO SCH (08:32)
[2019-05-07] MEDS: AZITHROMYCIN 250 MG TABLET PO SCH (08:32)
[2019-05-07] MEDS: ASPIRIN EC 81 MG TABLET PO SCH (08:32)
[2019-05-07] MEDS: predniSONE 20 MG TABLET PO SCH (14:56)
[2019-05-07] MEDS: ATORVASTATIN 80 MG TABLET PO SCH (21:24)
[2019-05-08] MEDS: ALBUTEROL/IPRATROPIUM 3 ML NEB RESP TX SCH ×4 (00:27→19:58)
[2019-05-08 05:37] LABS: Basophils % 0.2 % (0.0-0.8); Hemoglobin 11.7 GM/DL (12.0-16.0); Immature Granulocytes % 2.6 %; Immature Granulocytes Absolute 0.26 #; Lymphocytes # 0.9 10*3/uL (1.4-4.0); Lymphocytes % 8.7 % (21.3-54.2); Mean Corpuscular HGB Conc 30.8 GM/DL (32-36); Mean Corpuscular Volume 88.4 FL (87-102); Mean Platelet Volume 10.1 FL (9.6-12.0); Monocytes % 5.6 % (1.7-12.7); Neutrophils % 82.9 % (38.7-73.9); Platelet Count 272 T/CUMM (130-400); Red Cell Distribution Width 12.7 % (9.3-17.3); White Blood Count 10.1 T/CUMM (4-12)
[2019-05-08 06:01] LABS: Calcium 8.9 MG/DL (8.5-10.1)
[2019-05-08] MEDS: INSULIN REGULAR 100 UNIT/ML SUBCUT SCH ×4 (08:39→21:24)
[2019-05-08] MEDS: APIXABAN 2.5 MG TABLET PO SCH ×2 (08:40→21:24)
[2019-05-08] MEDS: predniSONE 20 MG TABLET PO SCH (08:40)
[2019-05-08] MEDS: ASPIRIN EC 81 MG TABLET PO SCH (08:41)
[2019-05-08] MEDS: FUROSEMIDE 40 MG TABLET PO SCH (08:41)
[2019-05-08] MEDS: AZITHROMYCIN 250 MG TABLET PO SCH (08:41)
[2019-05-08] MEDS: amLODIPine 10 MG TABLET PO SCH (08:41)
[2019-05-08] MEDS: PANTOPRAZOLE 40 MG TABLET PO SCH (08:41)
[2019-05-08] MEDS: methylPREDNISolone SOD SUC 40 MG/1 ML VIAL IV SCH ×2 (13:41→23:52)
[2019-05-08] MEDS: ATORVASTATIN 80 MG TABLET PO SCH (21:24)
[2019-05-09] MEDS: ALBUTEROL/IPRATROPIUM 3 ML NEB RESP TX SCH ×4 (01:08→20:19)
[2019-05-09 06:02] LABS: Osmolality,Calculated 301.2 MOS/KG (273-304)
[2019-05-09] MEDS: ASPIRIN EC 81 MG TABLET PO SCH (08:58)
[2019-05-09] MEDS: APIXABAN 2.5 MG TABLET PO SCH ×2 (08:58→21:58)
[2019-05-09] MEDS: AZITHROMYCIN 250 MG TABLET PO SCH (08:58)
[2019-05-09] MEDS: PANTOPRAZOLE 40 MG TABLET PO SCH (08:59)
[2019-05-09] MEDS: INSULIN REGULAR 100 UNIT/ML SUBCUT SCH ×4 (08:59→21:56)
[2019-05-09] MEDS: FUROSEMIDE 40 MG TABLET PO SCH (09:00)
[2019-05-09] MEDS: amLODIPine 5 MG TABLET PO SCH (09:00)
[2019-05-09] MEDS ORDERED: HEPARIN 10,000 UNIT/10 ML VIAL IV SCH (11:00)
[2019-05-09 12:38] LABS: Hepatitis B Core IgM Quant 0.07 Index; Hepatitis B Surface Ag Quant < 0.10 Index; Hepatitis B Surface Ag Result Negative (Negative); Hepatitis C Virus Ab Quant < 0.02 Index; Hepatitis C Virus Ab Result Negative (Negative)
[2019-05-09] MEDS: methylPREDNISolone SOD SUC 40 MG/1 ML VIAL IV SCH (13:56)
[2019-05-09] MEDS ORDERED: ALUM/MAG/SIMETH/LIDO VISC 1:1 30 ML BOTTLE PO ONE (14:50)
[2019-05-09] MEDS: ATORVASTATIN 80 MG TABLET PO SCH (21:58)
[2019-05-10] MEDS: methylPREDNISolone SOD SUC 40 MG/1 ML VIAL IV SCH ×2 (01:23→12:25)
[2019-05-10] MEDS: ALBUTEROL/IPRATROPIUM 3 ML NEB RESP TX SCH ×4 (01:25→18:38)
[2019-05-10] MEDS: amLODIPine 10 MG TABLET PO SCH (08:29)
[2019-05-10] MEDS: FUROSEMIDE 40 MG TABLET PO SCH (08:29)
[2019-05-10] MEDS: ASPIRIN EC 81 MG TABLET PO SCH (08:29)
[2019-05-10] MEDS: PANTOPRAZOLE 40 MG TABLET PO SCH (08:29)
[2019-05-10] MEDS: INSULIN REGULAR 100 UNIT/ML SUBCUT SCH ×4 (08:29→21:57)
[2019-05-10] MEDS: APIXABAN 2.5 MG TABLET PO SCH ×2 (08:29→21:57)
[2019-05-10] MEDS: ATORVASTATIN 80 MG TABLET PO SCH (21:57)
[2019-05-11] MEDS: ALBUTEROL/IPRATROPIUM 3 ML NEB RESP TX SCH ×4 (00:35→20:52)
[2019-05-11] MEDS: methylPREDNISolone SOD SUC 40 MG/1 ML VIAL IV SCH ×2 (01:01→16:10)
[2019-05-11] MEDS: ASPIRIN EC 81 MG TABLET PO SCH (08:51)
[2019-05-11] MEDS: INSULIN REGULAR 100 UNIT/ML SUBCUT SCH ×4 (08:51→21:15)
[2019-05-11] MEDS: FUROSEMIDE 40 MG TABLET PO SCH (08:51)
[2019-05-11] MEDS: PANTOPRAZOLE 40 MG TABLET PO SCH (08:51)
[2019-05-11] MEDS: amLODIPine 5 MG TABLET PO SCH (08:51)
[2019-05-11] MEDS: APIXABAN 2.5 MG TABLET PO SCH ×2 (08:51→21:14)
[2019-05-11] MEDS ORDERED: TUBERCULIN SKIN TEST 0.1 ML SYRINGE INTRADERM ONE (10:38)
[2019-05-11] MEDS: ATORVASTATIN 80 MG TABLET PO SCH (21:14)
[2019-05-12] MEDS: ALBUTEROL/IPRATROPIUM 3 ML NEB RESP TX SCH ×2 (00:39→08:06)
[2019-05-12] MEDS: INSULIN REGULAR 100 UNIT/ML SUBCUT SCH ×2 (08:13→12:15)
[2019-05-12] MEDS ORDERED: TUBERCULIN SKIN TEST 0.1 ML SYRINGE INTRADERM ONE (08:30)
[2019-05-12] MEDS ORDERED: predniSONE 20 MG TABLET PO SCH (09:00)
[2019-05-12] MEDS: ASPIRIN EC 81 MG TABLET PO SCH (09:50)
[2019-05-12] MEDS: FUROSEMIDE 40 MG TABLET PO SCH (09:50)
[2019-05-12] MEDS: PANTOPRAZOLE 40 MG TABLET PO SCH (09:50)
[2019-05-12] MEDS: amLODIPine 10 MG TABLET PO SCH (09:50)
[2019-05-12] MEDS: APIXABAN 2.5 MG TABLET PO SCH (09:50)
[2019-05-12 11:47] VITALS: BP 149/59
== END 2019-05-12 12:23 | DRG 202 ==
LOC: EDUNIT# → EDBD → N.EDINP 03:39 → N.ED 03:39 → SUATTDRO 05:39 → N.5E 06:17 → SUATTDRO 05-09 13:24
PROVIDERS: ADMIT Internal Medicine; ATTEND Internal Medicine Cardiovascular Disease

== ENCOUNTER 2021-03-06 16:32 | Inpatient (IN) ==
[2021-03-06] MEDS ORDERED: ALBUTEROL/IPRATROPIUM 3 ML NEB RESP TX ONE (16:45)
[2021-03-06] MEDS ORDERED: MIDAZOLAM 10 MG/2 ML VIAL ONE (17:03)
[2021-03-06 17:07] LABS: ABG Base Excess -3.2 MMOL/L (-2.5-2.5); ABG HCO3 21.7 MMOL/L (20-26); ABG Oxygen Saturation 99.8 % (95-100); ABG PCO2 53.7 MM HG (35-48); ABG PH 7.267 (7.35-7.45); ABG TCO2 22.1 MMOL/L (23-27)
[2021-03-06 17:08] LABS: INR 1.2
[2021-03-06 17:10] LABS: Basophils % 0.3 % (0.0-0.8); Eosinophils # 0.2 10*3/uL (0.0-0.87); Eosinophils % 1.4 % (0.00-10.9); Hematocrit 39.7 VOL% (35.7-47.0); Immature Granulocytes % 3.5 %; Immature Granulocytes Absolute 0.53 #; Lymphocytes # 5.2 10*3/uL (1.4-4.0); Lymphocytes % 33.8 % (21.3-54.2); Mean Corpuscular Volume 94.3 FL (87-102); Mean Platelet Volume 11.5 FL (9.6-12.0); Monocytes % 2.3 % (1.7-12.7); NRBC # 0.09 10*3/uL; Neutrophils % 58.7 % (38.7-73.9); Platelet Count 186 T/CUMM (130-400); Red Blood Count 4.21 MC/CUMM (3.8-5.5); Red Cell Distribution Width 16.9 % (9.3-17.3); White Blood Count 15.4 T/CUMM (4-12)
[2021-03-06 17:11] LABS: Hemoglobin 11.5 GM/DL (12.0-16.0)
[2021-03-06 17:19] LABS: Alanine Aminotransferase 16 U/L (13-56); Albumin 2.3 G/DL (3.4-5.0); Alkaline Phosphatase 83 U/L (45-117); Aspartate Amino Transferase 24 U/L (0-37); Bilirubin,Total < 0.39 MG/DL (0.20-1.00); Blood Urea Nitrogen 18 MG/DL (7-18); Calcium 8.9 MG/DL (8.5-10.1); Carbon Dioxide 25 MMOL/L (21-32); Glucose 215 MG/DL (74-106); Osmolality,Calculated 293.8 MOS/KG (273-304); Potassium 3.1 MMOL/L (3.5-5.1); Sodium 144 MMOL/L (136-145)
[2021-03-06] MEDS ORDERED: NOREPINEPHRINE 4 MG/4 ML VIAL IV ONE (17:20)
[2021-03-06 17:21] LABS: Estimated Glom Filtration Rate 0 ML/MIN
[2021-03-06] MEDS: NOREPINEPHRINE 8 MG in SODIUM CHLORIDE 0.9% 242 ML IV PRN (17:22)
[2021-03-06] MEDS ORDERED: MIDAZOLAM 10 MG/2 ML VIAL IV STA (17:28)
[2021-03-06] MEDS ORDERED: ALBUTEROL 2.5 MG/3 ML NEB RESP TX PRN (17:33)
[2021-03-06] MEDS ORDERED: ONDANSETRON 4 MG/2 ML VIAL IV PRN (17:34)
[2021-03-06] MEDS ORDERED: DOPamine 800 MG/250 ML PREMIX IV ONE (17:49)
[2021-03-06] MEDS: DOPamine 800 MG/250 ML PREMIX IV PRN (17:56)
[2021-03-06] MEDS ORDERED: GLUCAGON 1 MG VIAL IM PRN (18:12)
[2021-03-06] MEDS: HEPARIN 5,000 UNIT/1 ML VIAL SUBCUT SCH (18:25)
[2021-03-06] MEDS: PANTOPRAZOLE 40 MG VIAL IV SCH (18:25)
[2021-03-06] MEDS ORDERED: MIDAZOLAM 2 MG/2 ML VIAL IV ONE (18:36)
[2021-03-06] MEDS: MIDAZOLAM 100 MG in SODIUM CHLORIDE 0.9% 80 ML IV PRN (19:30)
[2021-03-06] MEDS ORDERED: POTASSIUM BICARB EFFERVESCENT 20 MEQ TAB.EFF PER TUBE ONE (19:30)
[2021-03-06 20:15] LABS: Band Neutrophils 12 % (0-10); Eosinophils 1 % (0-10); Lymphocytes 34 % (20-55); Metamyelocytes 1 %; Nucleated Red Blood Cells 1 (0-5); Platelet Estimate Normal; Segmented Neutrophils 50 % (50-85); Total Cells Counted 100
[2021-03-07] MEDS: INSULIN REGULAR 100 UNIT/ML SUBCUT SCH ×5 (00:01→23:57)
[2021-03-07] MEDS: NOREPINEPHRINE 8 MG in SODIUM CHLORIDE 0.9% 242 ML IV PRN ×2 (00:57→23:05)
[2021-03-07 02:48] LABS: ABG Base Excess -0.5 MMOL/L (-2.5-2.5); ABG HCO3 25.2 MMOL/L (20-26); ABG Oxygen Saturation 99.4 % (95-100); ABG PCO2 45.3 MM HG (35-48); ABG PH 7.363 (7.35-7.45); ABG PO2 238.1 MM HG (80-95); ABG TCO2 26.6 MMOL/L (23-27)
[2021-03-07 04:48] LABS: Basophils # 0.1 10*3/uL (0.0-0.2); Basophils % 0.2 % (0.0-0.8); Eosinophils # 0.1 10*3/uL (0.0-0.87); Eosinophils % 0.2 % (0.00-10.9); Hematocrit 42.8 VOL% (35.7-47.0); Immature Granulocytes % 1.6 %; Immature Granulocytes Absolute 0.48 #; Lymphocytes # 0.9 10*3/uL (1.4-4.0); Lymphocytes % 2.9 % (21.3-54.2); Mean Corpuscular HGB Conc 30.4 GM/DL (32-36); Mean Corpuscular Volume 89.5 FL (87-102); Mean Platelet Volume 10.6 FL (9.6-12.0); Monocytes % 4.7 % (1.7-12.7); NRBC # 0.07 10*3/uL; Neutrophils % 90.4 % (38.7-73.9); Platelet Count 244 T/CUMM (130-400); Red Blood Count 4.78 MC/CUMM (3.8-5.5); Red Cell Distribution Width 16.7 % (9.3-17.3); White Blood Count 29.7 T/CUMM (4-12)
[2021-03-07 05:05] LABS: Albumin 2.3 G/DL (3.4-5.0); Bilirubin,Total 0.5 MG/DL (0.20-1.00); Potassium 3.8 MMOL/L (3.5-5.1); Total Protein 5.5 G/DL (6.4-8.2)
[2021-03-07 05:07] LABS: Band Neutrophils 1 % (0-10); Lymphocytes 1 % (20-55); Platelet Estimate Adequate; Segmented Neutrophils 92 % (50-85); Total Cells Counted 100
[2021-03-07] MEDS ORDERED: MAGNESIUM SULF RIDER 1 GM/100 ML PREMIX IV ONE (05:27)
[2021-03-07] MEDS: HEPARIN 5,000 UNIT/1 ML VIAL SUBCUT SCH (06:19)
[2021-03-07] MEDS: PIPERACILLIN/TAZOBACTAM 3,375 MG in SODIUM CHLORIDE 0.9% 100 ML IV SCH ×2 (08:53→20:36)
[2021-03-07] MEDS: ASPIRIN EC 81 MG TABLET PO SCH (08:53)
[2021-03-07] MEDS: HEPARIN DRIP 25,000 UNITS/500 ML PREMIX IV SCH (09:52)
[2021-03-07] MEDS ORDERED: SODIUM CHLORIDE 0.9% 500 ML IV ONE (12:21)
[2021-03-07] MEDS ORDERED: MAGNESIUM SULF RIDER 2 GM/50 ML PREMIX IV PRN (14:01)
[2021-03-07] MEDS ORDERED: MAGNESIUM SULF RIDER 4 GM/100 ML PREMIX IV PRN (14:01)
[2021-03-07] MEDS: DOPamine 800 MG/250 ML PREMIX IV PRN (15:01)
[2021-03-07 15:17] LABS: CKMB % 1.6 %
[2021-03-07 15:28] LABS: High Sensitive Troponin I* 9856.3 ng/L (0-54)
[2021-03-07] MEDS: MIDAZOLAM 100 MG in SODIUM CHLORIDE 0.9% 80 ML IV PRN (18:13)
[2021-03-07] MEDS: PANTOPRAZOLE 40 MG VIAL IV SCH (18:57)
[2021-03-07] MEDS: ATORVASTATIN 80 MG TABLET PO SCH (21:29)
[2021-03-08 03:10] LABS: Basophils # 0.1 10*3/uL (0.0-0.2); Basophils % 0.3 % (0.0-0.8); Eosinophils # 0.8 10*3/uL (0.0-0.87); Eosinophils % 3.7 % (0.00-10.9); Hematocrit 34.9 VOL% (35.7-47.0); Hemoglobin 10.8 GM/DL (12.0-16.0); Immature Granulocytes % 0.8 %; Immature Granulocytes Absolute 0.17 #; Lymphocytes # 1.4 10*3/uL (1.4-4.0); Lymphocytes % 6.4 % (21.3-54.2); Mean Corpuscular HGB Conc 30.9 GM/DL (32-36); Mean Corpuscular Volume 87.5 FL (87-102); Monocytes % 5.4 % (1.7-12.7); NRBC # 0.04 10*3/uL; Neutrophils % 83.4 % (38.7-73.9); Platelet Count 217 T/CUMM (130-400); Red Blood Count 3.99 MC/CUMM (3.8-5.5); White Blood Count 22.3 T/CUMM (4-12)
[2021-03-08 03:17] LABS: CKMB % 0.8 %; High Sensitive Troponin I* 5148.4 ng/L (0-54)
[2021-03-08 03:25] LABS: Bilirubin,Total 0.4 MG/DL (0.20-1.00); Calcium 7.8 MG/DL (8.5-10.1); Osmolality,Calculated 289.4 MOS/KG (273-304); Potassium 4.4 MMOL/L (3.5-5.1); Total Protein 5.2 G/DL (6.4-8.2)
[2021-03-08 03:26] LABS: ABG Base Excess 2.7 MMOL/L (-2.5-2.5); ABG HCO3 26.9 MMOL/L (20-26); ABG Oxygen Saturation 99.4 % (95-100); ABG PCO2 41.1 MM HG (35-48); ABG TCO2 24.4 MMOL/L (23-27)
[2021-03-08 04:23] LABS: Band Neutrophils 2 % (0-10); Eosinophils 2 % (0-10); Hypochromasia Slight; Lymphocytes 7 % (20-55); Microcytosis Slight; Ovalocytes Slight; Platelet Estimate Adequate; Segmented Neutrophils 81 % (50-85); Total Cells Counted 100
[2021-03-08] MEDS: INSULIN REGULAR 100 UNIT/ML SUBCUT SCH ×3 (05:36→17:49)
[2021-03-08] MEDS: HEPARIN DRIP 25,000 UNITS/500 ML PREMIX IV SCH ×2 (05:38→10:24)
[2021-03-08] MEDS: ASPIRIN EC 81 MG TABLET PO SCH (08:50)
[2021-03-08] MEDS: PIPERACILLIN/TAZOBACTAM 3,375 MG in SODIUM CHLORIDE 0.9% 100 ML IV SCH ×2 (08:54→20:50)
[2021-03-08 11:18] LABS: Hepatitis B Core IgM Quant 0.07 Index; Hepatitis B Surface Ag Quant < 0.10 Index; Hepatitis B Surface Ag Result Non-Reactive (NonReactive); Hepatitis C Virus Ab Quant 0.03 Index; Hepatitis C Virus Ab Result Non-Reactive (NonReactive)
[2021-03-08] MEDS ORDERED: ALBUMIN 25% 25 GM/100 ML VIAL IV ONE (11:34)
[2021-03-08] MEDS ORDERED: CALCIUM GLUCONATE 1,000 MG in SODIUM CHLORIDE 0.9% 100 ML IV ONE (12:00)
[2021-03-08] MEDS: DOPamine 800 MG/250 ML PREMIX IV PRN (13:50)
[2021-03-08] MEDS: DEXTROSE 50% 25 GM/50 ML VIAL IV PRN (14:20)
[2021-03-08] MEDS: PANTOPRAZOLE 40 MG VIAL IV SCH (18:03)
[2021-03-08] MEDS: ATORVASTATIN 80 MG TABLET PO SCH (20:54)
[2021-03-08] MEDS: MIDAZOLAM 100 MG in SODIUM CHLORIDE 0.9% 80 ML IV PRN (22:00)
[2021-03-09] MEDS: INSULIN REGULAR 100 UNIT/ML SUBCUT SCH ×4 (00:01→18:05)
[2021-03-09 04:36] LABS: ABG HCO3 26.2 MMOL/L (20-26); ABG Oxygen Saturation 98.8 % (95-100); ABG PCO2 42.2 MM HG (35-48); ABG PH 7.411 (7.35-7.45); ABG TCO2 24.6 MMOL/L (23-27)
[2021-03-09 05:09] LABS: Basophils # 0.1 10*3/uL (0.0-0.2); Basophils % 0.4 % (0.0-0.8); Eosinophils # 0.3 10*3/uL (0.0-0.87); Eosinophils % 2.1 % (0.00-10.9); Hematocrit 28.3 VOL% (35.7-47.0); Immature Granulocytes % 0.9 %; Immature Granulocytes Absolute 0.14 #; Lymphocytes # 1.1 10*3/uL (1.4-4.0); Lymphocytes % 6.4 % (21.3-54.2); Mean Corpuscular HGB Conc 30.7 GM/DL (32-36); Mean Corpuscular Volume 88.7 FL (87-102); Mean Platelet Volume 11.5 FL (9.6-12.0); NRBC # 0.02 10*3/uL; Neutrophils % 84.2 % (38.7-73.9); Platelet Count 190 T/CUMM (130-400); Red Blood Count 3.19 MC/CUMM (3.8-5.5); Red Cell Distribution Width 17.2 % (9.3-17.3); White Blood Count 16.4 T/CUMM (4-12)
[2021-03-09 05:10] LABS: Hemoglobin 8.7 GM/DL (12.0-16.0)
[2021-03-09 05:14] LABS: Albumin 2.3 G/DL (3.4-5.0); Bilirubin,Total 0.6 MG/DL (0.20-1.00); Potassium 4.5 MMOL/L (3.5-5.1); Total Protein 5.4 G/DL (6.4-8.2)
[2021-03-09 05:26] LABS: Band Neutrophils 2 % (0-10); Eosinophils 3 % (0-10); Hypochromasia 1+; Lymphocytes 4 % (20-55); Microcytosis 1+; Platelet Estimate Adequate; Segmented Neutrophils 86 % (50-85); Total Cells Counted 100
[2021-03-09 05:27] LABS: Ovalocytes Slight
[2021-03-09 09:34] LABS: Allen Test Positive; Pt O2 Delivery Device Ventilator
[2021-03-09 09:35] LABS: ABG Base Excess 0.3 MMOL/L (-2.5-2.5); ABG HCO3 24.7 MMOL/L (20-26); ABG Oxygen Saturation 95.8 % (95-100); ABG PH 7.328 (7.35-7.45); ABG PO2 89.7 MM HG (80-95); ABG TCO2 24.9 MMOL/L (23-27)
[2021-03-09] MEDS: ASPIRIN EC 81 MG TABLET PO SCH (09:38)
[2021-03-09] MEDS: PIPERACILLIN/TAZOBACTAM 3,375 MG in SODIUM CHLORIDE 0.9% 100 ML IV SCH ×2 (09:40→20:14)
[2021-03-09] MEDS: HEPARIN DRIP 25,000 UNITS/500 ML PREMIX IV SCH (09:41)
[2021-03-09] MEDS: NOREPINEPHRINE 8 MG in SODIUM CHLORIDE 0.9% 242 ML IV PRN ×2 (12:19→20:15)
[2021-03-09 15:05] LABS: Hematocrit 28.6 VOL% (35.7-47.0); Hemoglobin 8.8 GM/DL (12.0-16.0)
[2021-03-09] MEDS: PANTOPRAZOLE 40 MG VIAL IV SCH (18:15)
[2021-03-09] MEDS: ATORVASTATIN 80 MG TABLET PO SCH (22:28)
[2021-03-10] MEDS: DEXTROSE 50% 25 GM/50 ML VIAL IV PRN (00:24)
[2021-03-10] MEDS: INSULIN REGULAR 100 UNIT/ML SUBCUT SCH ×4 (00:25→18:24)
[2021-03-10] MEDS: NOREPINEPHRINE 8 MG in SODIUM CHLORIDE 0.9% 242 ML IV PRN ×6 (00:26→23:35)
[2021-03-10 03:13] LABS: ABG Base Excess -6.2 MMOL/L (-2.5-2.5); ABG HCO3 19.3 MMOL/L (20-26); ABG Oxygen Saturation 98.5 % (95-100); ABG PCO2 36.8 MM HG (35-48); ABG PH 7.325 (7.35-7.45); ABG TCO2 17.8 MMOL/L (23-27)
[2021-03-10 05:39] LABS: Basophils # 0.1 10*3/uL (0.0-0.2); Basophils % 0.2 % (0.0-0.8); Hematocrit 28.8 VOL% (35.7-47.0); Hemoglobin 8.8 GM/DL (12.0-16.0); Immature Granulocytes % 2.3 %; Immature Granulocytes Absolute 0.56 #; Lymphocytes # 1.5 10*3/uL (1.4-4.0); Lymphocytes % 6.2 % (21.3-54.2); Mean Corpuscular HGB Conc 30.6 GM/DL (32-36); Mean Corpuscular Volume 89.4 FL (87-102); Mean Platelet Volume 10.9 FL (9.6-12.0); Monocytes % 4.7 % (1.7-12.7); Neutrophils % 86.6 % (38.7-73.9); Platelet Count 210 T/CUMM (130-400); Red Blood Count 3.22 MC/CUMM (3.8-5.5); Red Cell Distribution Width 17.2 % (9.3-17.3); White Blood Count 24.5 T/CUMM (4-12)
[2021-03-10 06:29] LABS: Albumin 2.1 G/DL (3.4-5.0); Bilirubin,Total 1.1 MG/DL (0.20-1.00); Calcium 8.1 MG/DL (8.5-10.1); Osmolality,Calculated 294.5 MOS/KG (273-304); Total Protein 5.4 G/DL (6.4-8.2)
[2021-03-10 06:42] LABS: Anisocytosis 2+; Band Neutrophils 19 % (0-10); Lymphocytes 13 % (20-55); Macrocytosis 1+; Nucleated Red Blood Cells 1 (0-5); Platelet Estimate Normal; Segmented Neutrophils 66 % (50-85); Total Cells Counted 100
[2021-03-10 06:43] LABS: Basophilic Stippling Slight; Burr Cells Few; Ovalocytes Few; Poikilocytosis 1+; Tear Drop Cells Few
[2021-03-10] MEDS ORDERED: NOREPINEPHRINE 4 MG/4 ML VIAL IV ONE ×2 (07:38→17:26)
[2021-03-10] MEDS: HEPARIN DRIP 25,000 UNITS/500 ML PREMIX IV SCH (09:00)
[2021-03-10] MEDS: ASPIRIN EC 81 MG TABLET PO SCH (09:57)
[2021-03-10] MEDS: PIPERACILLIN/TAZOBACTAM 3,375 MG in SODIUM CHLORIDE 0.9% 100 ML IV SCH ×2 (10:08→22:00)
[2021-03-10 10:44] LABS: INR 1.5; PT Patient Result 16.6 SECS (10.5-12.0)
[2021-03-10 11:26] LABS: Bilirubin,Total 0.8 MG/DL (0.20-1.00); Calcium 7.9 MG/DL (8.5-10.1); Osmolality,Calculated 296.5 MOS/KG (273-304); Potassium 4.9 MMOL/L (3.5-5.1); Total Protein 5.2 G/DL (6.4-8.2)
[2021-03-10 11:47] LABS: Hepatitis B Core IgM Quant 0.07 Index; Hepatitis B Surface Ag Quant 0.17 Index; Hepatitis B Surface Ag Result Non-Reactive (NonReactive); Hepatitis C Virus Ab Quant 0.03 Index; Hepatitis C Virus Ab Result Non-Reactive (NonReactive)
[2021-03-10] MEDS: SILDENAFIL 20 MG TABLET PO SCH ×2 (14:23→21:59)
[2021-03-10] MEDS: PANTOPRAZOLE 40 MG VIAL IV SCH (18:40)
[2021-03-11] MEDS: INSULIN REGULAR 100 UNIT/ML SUBCUT SCH ×4 (00:50→17:10)
[2021-03-11 04:30] LABS: Allen Test Positive; Pt O2 Delivery Device Ventilator
[2021-03-11 04:32] LABS: ABG Base Excess -3.7 MMOL/L (-2.5-2.5); ABG HCO3 21.4 MMOL/L (20-26); ABG Oxygen Saturation 98.2 % (95-100); ABG PCO2 38.9 MM HG (35-48); ABG PH 7.358 (7.35-7.45); ABG PO2 123.6 MM HG (80-95); ABG TCO2 22.6 MMOL/L (23-27)
[2021-03-11 04:36] LABS: Basophils # 0.1 10*3/uL (0.0-0.2); Basophils % 0.6 % (0.0-0.8); Eosinophils # 0.4 10*3/uL (0.0-0.87); Eosinophils % 1.7 % (0.00-10.9); Hematocrit 26.3 VOL% (35.7-47.0); Hemoglobin 8.3 GM/DL (12.0-16.0); Immature Granulocytes % 6.4 %; Immature Granulocytes Absolute 1.43 #; Lymphocytes # 1.5 10*3/uL (1.4-4.0); Lymphocytes % 6.5 % (21.3-54.2); Mean Corpuscular HGB Conc 31.6 GM/DL (32-36); Mean Corpuscular Volume 87.7 FL (87-102); Mean Platelet Volume 11.4 FL (9.6-12.0); Monocytes % 4.9 % (1.7-12.7); Neutrophils % 79.9 % (38.7-73.9); Platelet Count 203 T/CUMM (130-400); Red Cell Distribution Width 17.1 % (9.3-17.3); White Blood Count 22.4 T/CUMM (4-12)
[2021-03-11 04:56] LABS: Eosinophils 4 % (0-10); Lymphocytes 4 % (20-55); Nucleated Red Blood Cells 6 (0-5); Platelet Estimate Adequate; Segmented Neutrophils 88 % (50-85); Total Cells Counted 100
[2021-03-11 04:57] LABS: Hypochromasia 1+; Microcytosis 1+
[2021-03-11 05:25] LABS: Bilirubin,Total 0.8 MG/DL (0.20-1.00); Calcium 7.5 MG/DL (8.5-10.1); Osmolality,Calculated 304.5 MOS/KG (273-304); Potassium 4.5 MMOL/L (3.5-5.1); Total Protein 5.2 G/DL (6.4-8.2)
[2021-03-11] MEDS: NOREPINEPHRINE 8 MG in SODIUM CHLORIDE 0.9% 242 ML IV PRN (05:30)
[2021-03-11] MEDS: SILDENAFIL 20 MG TABLET PO SCH ×3 (09:26→22:14)
[2021-03-11] MEDS: ASPIRIN EC 81 MG TABLET PO SCH (09:26)
[2021-03-11] MEDS: NOREPINEPHRINE 16 MG in SODIUM CHLORIDE 0.9% 234 ML IV PRN ×2 (10:36→21:50)
[2021-03-11] MEDS: PIPERACILLIN/TAZOBACTAM 3,375 MG in SODIUM CHLORIDE 0.9% 100 ML IV SCH ×2 (11:47→22:14)
[2021-03-11] MEDS: HEPARIN DRIP 25,000 UNITS/500 ML PREMIX IV SCH (12:08)
[2021-03-11 14:02] LABS: Hematocrit 26.3 VOL% (35.7-47.0); Hemoglobin 8.3 GM/DL (12.0-16.0)
[2021-03-11] MEDS: MENTHOL/ZINC OXIDE OINT 71 GM JAR TOP SCH ×2 (16:27→22:14)
[2021-03-11] MEDS: PANTOPRAZOLE 40 MG VIAL IV SCH (17:07)
[2021-03-12] MEDS: INSULIN REGULAR 100 UNIT/ML SUBCUT SCH ×4 (00:58→18:08)
[2021-03-12 03:54] LABS: ABG Base Excess 0.4 MMOL/L (-2.5-2.5); ABG HCO3 25.7 MMOL/L (20-26); ABG Oxygen Saturation 98.3 % (95-100); ABG PCO2 44.9 MM HG (35-48); ABG PH 7.376 (7.35-7.45); ABG PO2 123.9 MM HG (80-95); ABG TCO2 27.1 MMOL/L (23-27)
[2021-03-12 04:14] LABS: Basophils # 0.1 10*3/uL (0.0-0.2); Basophils % 0.5 % (0.0-0.8); Eosinophils % 5.3 % (0.00-10.9); Hematocrit 25.2 VOL% (35.7-47.0); Hemoglobin 7.7 GM/DL (12.0-16.0); Immature Granulocytes Absolute 2.18 #; Lymphocytes # 1.4 10*3/uL (1.4-4.0); Lymphocytes % 7.6 % (21.3-54.2); Mean Corpuscular HGB Conc 30.6 GM/DL (32-36); Mean Corpuscular Volume 88.7 FL (87-102); Mean Platelet Volume 11.1 FL (9.6-12.0); Monocytes % 7.1 % (1.7-12.7); NRBC # 1.78 10*3/uL; Neutrophils % 67.5 % (38.7-73.9); Platelet Count 200 T/CUMM (130-400); Red Blood Count 2.84 MC/CUMM (3.8-5.5); Red Cell Distribution Width 17.2 % (9.3-17.3); White Blood Count 18.2 T/CUMM (4-12)
[2021-03-12 04:35] LABS: Band Neutrophils 1 % (0-10); Eosinophils 2 % (0-10); Hypochromasia 1+; Lymphocytes 9 % (20-55); Microcytosis 1+; Nucleated Red Blood Cells 14 (0-5); Platelet Estimate Adequate; Segmented Neutrophils 83 % (50-85); Total Cells Counted 100
[2021-03-12 04:58] LABS: Albumin 1.9 G/DL (3.4-5.0); Bilirubin,Total 0.9 MG/DL (0.20-1.00); Calcium 7.7 MG/DL (8.5-10.1); Osmolality,Calculated 297.5 MOS/KG (273-304); Total Protein 5.1 G/DL (6.4-8.2)
[2021-03-12] MEDS: SILDENAFIL 20 MG TABLET PO SCH ×3 (09:55→21:41)
[2021-03-12] MEDS: ASPIRIN CHEW 81 MG TABLET PO SCH (09:55)
[2021-03-12] MEDS: MENTHOL/ZINC OXIDE OINT 71 GM JAR TOP SCH ×2 (09:55→21:41)
[2021-03-12] MEDS: PIPERACILLIN/TAZOBACTAM 3,375 MG in SODIUM CHLORIDE 0.9% 100 ML IV SCH ×2 (11:37→21:41)
[2021-03-12] MEDS: PANTOPRAZOLE 40 MG VIAL IV SCH (17:18)
[2021-03-12] MEDS: NOREPINEPHRINE 16 MG in SODIUM CHLORIDE 0.9% 234 ML IV PRN (17:45)
[2021-03-13] MEDS: INSULIN REGULAR 100 UNIT/ML SUBCUT SCH ×4 (00:55→19:00)
[2021-03-13 02:46] LABS: ABG Base Excess -0.8 MMOL/L (-2.5-2.5); ABG HCO3 24.5 MMOL/L (20-26); ABG Oxygen Saturation 98.5 % (95-100); ABG PCO2 43.1 MM HG (35-48); ABG PH 7.372 (7.35-7.45); ABG PO2 141.2 MM HG (80-95); ABG TCO2 25.8 MMOL/L (23-27)
[2021-03-13 04:07] LABS: Basophils # 0.1 10*3/uL (0.0-0.2); Basophils % 0.4 % (0.0-0.8); Eosinophils % 6.4 % (0.00-10.9); Hemoglobin 7.8 GM/DL (12.0-16.0); Lymphocytes % 6.1 % (21.3-54.2); Mean Corpuscular HGB Conc 31.2 GM/DL (32-36); Mean Corpuscular Volume 89.3 FL (87-102); Mean Platelet Volume 11.1 FL (9.6-12.0); Monocytes % 8.6 % (1.7-12.7); NRBC # 1.35 10*3/uL; Neutrophils % 66.5 % (38.7-73.9); Platelet Count 189 T/CUMM (130-400); Red Cell Distribution Width 17.5 % (9.3-17.3); White Blood Count 15.9 T/CUMM (4-12)
[2021-03-13 04:28] LABS: Albumin 1.9 G/DL (3.4-5.0); Bilirubin,Total 0.9 MG/DL (0.20-1.00); Osmolality,Calculated 305.7 MOS/KG (273-304); Potassium 3.7 MMOL/L (3.5-5.1); Total Protein 5.3 G/DL (6.4-8.2)
[2021-03-13 04:33] LABS: Band Neutrophils 1 % (0-10); Eosinophils 5 % (0-10); Hypochromasia 1+; Lymphocytes 6 % (20-55); Microcytosis 1+; Nucleated Red Blood Cells 6 (0-5); Platelet Estimate Adequate; Segmented Neutrophils 82 % (50-85); Total Cells Counted 100
[2021-03-13] MEDS: MENTHOL/ZINC OXIDE OINT 71 GM JAR TOP SCH ×2 (08:45→21:09)
[2021-03-13] MEDS: ASPIRIN CHEW 81 MG TABLET PO SCH (08:45)
[2021-03-13] MEDS: PIPERACILLIN/TAZOBACTAM 3,375 MG in SODIUM CHLORIDE 0.9% 100 ML IV SCH ×2 (10:34→21:21)
[2021-03-13] MEDS: SILDENAFIL 20 MG TABLET PO SCH ×3 (10:38→21:09)
[2021-03-13] MEDS: PANTOPRAZOLE 40 MG VIAL IV SCH (18:20)
[2021-03-14] MEDS: INSULIN REGULAR 100 UNIT/ML SUBCUT SCH ×4 (00:30→17:59)
[2021-03-14 04:51] LABS: ABG Base Excess -0.2 MMOL/L (-2.5-2.5); ABG HCO3 24.3 MMOL/L (20-26); ABG Oxygen Saturation 96.4 % (95-100); ABG PH 7.347 (7.35-7.45); ABG PO2 89.9 MM HG (80-95); ABG TCO2 23.6 MMOL/L (23-27)
[2021-03-14 05:27] LABS: Basophils # 0.1 10*3/uL (0.0-0.2); Basophils % 0.6 % (0.0-0.8); Eosinophils # 0.8 10*3/uL (0.0-0.87); Eosinophils % 4.9 % (0.00-10.9); Hematocrit 24.6 VOL% (35.7-47.0); Hemoglobin 7.7 GM/DL (12.0-16.0); Immature Granulocytes % 8.2 %; Immature Granulocytes Absolute 1.28 #; Lymphocytes # 0.9 10*3/uL (1.4-4.0); Mean Corpuscular HGB Conc 31.3 GM/DL (32-36); Mean Corpuscular Volume 90.8 FL (87-102); Mean Platelet Volume 11.6 FL (9.6-12.0); Neutrophils % 71.3 % (38.7-73.9); Platelet Count 175 T/CUMM (130-400); Red Blood Count 2.71 MC/CUMM (3.8-5.5); Red Cell Distribution Width 18.2 % (9.3-17.3); White Blood Count 15.6 T/CUMM (4-12)
[2021-03-14 05:49] LABS: Band Neutrophils 8 % (0-10); Hypochromasia 1+; Lymphocytes 9 % (20-55); Microcytosis 1+; Myelocytes 1 %; Nucleated Red Blood Cells 3 (0-5); Ovalocytes Slight; Polychromasia Slight; Segmented Neutrophils 68 % (50-85); Total Cells Counted 100
[2021-03-14 05:50] LABS: Anisocytosis 1+; Platelet Estimate Adequate
[2021-03-14 06:01] LABS: Bilirubin,Direct 0.49 MG/DL (0.0-0.20); Bilirubin,Indirect 0.5 MG/DL (0.0-1.0)
[2021-03-14 06:06] LABS: Albumin 1.8 G/DL (3.4-5.0); Bilirubin,Total 0.9 MG/DL (0.20-1.00); Calcium 8.1 MG/DL (8.5-10.1); Osmolality,Calculated 303.3 MOS/KG (273-304); Potassium 3.6 MMOL/L (3.5-5.1); Total Protein 5.5 G/DL (6.4-8.2)
[2021-03-14] MEDS: SILDENAFIL 20 MG TABLET PO SCH ×3 (08:54→21:34)
[2021-03-14] MEDS: ASPIRIN CHEW 81 MG TABLET PO SCH (08:54)
[2021-03-14] MEDS: PIPERACILLIN/TAZOBACTAM 3,375 MG in SODIUM CHLORIDE 0.9% 100 ML IV SCH ×2 (08:55→12:04)
[2021-03-14] MEDS: MENTHOL/ZINC OXIDE OINT 71 GM JAR TOP SCH ×2 (17:08→21:33)
[2021-03-14] MEDS: PANTOPRAZOLE 40 MG VIAL IV SCH (18:15)
[2021-03-14] MEDS ORDERED: SCOPOLAMINE 1.5 MG PATCH TRANSDERM ONE (21:02)
[2021-03-15] MEDS: INSULIN REGULAR 100 UNIT/ML SUBCUT SCH ×4 (00:07→18:38)
[2021-03-15 04:28] LABS: ABG Base Excess 0.4 MMOL/L (-2.5-2.5); ABG HCO3 25.6 MMOL/L (20-26); ABG Oxygen Saturation 97.9 % (95-100); ABG PCO2 43.9 MM HG (35-48); ABG PH 7.383 (7.35-7.45); ABG PO2 106.3 MM HG (80-95); ABG TCO2 26.9 MMOL/L (23-27)
[2021-03-15 05:03] LABS: Basophils # 0.1 10*3/uL (0.0-0.2); Basophils % 0.5 % (0.0-0.8); Hemoglobin 7.7 GM/DL (12.0-16.0); Immature Granulocytes % 6.1 %; Immature Granulocytes Absolute 1.24 #; Lymphocytes # 1.4 10*3/uL (1.4-4.0); Lymphocytes % 6.8 % (21.3-54.2); Mean Corpuscular HGB Conc 30.8 GM/DL (32-36); Mean Corpuscular Volume 90.9 FL (87-102); Mean Platelet Volume 11.2 FL (9.6-12.0); Monocytes % 8.2 % (1.7-12.7); NRBC # 0.19 10*3/uL; Neutrophils % 73.4 % (38.7-73.9); Platelet Count 206 T/CUMM (130-400); Red Blood Count 2.75 MC/CUMM (3.8-5.5); Red Cell Distribution Width 20.3 % (9.3-17.3); White Blood Count 20.2 T/CUMM (4-12)
[2021-03-15 05:28] LABS: Calcium 8.6 MG/DL (8.5-10.1); Osmolality,Calculated 310.4 MOS/KG (273-304); Potassium 3.6 MMOL/L (3.5-5.1)
[2021-03-15 05:44] LABS: Band Neutrophils 3 % (0-10); Eosinophils 7 % (0-10); Hypochromasia Slight; Lymphocytes 8 % (20-55); Nucleated Red Blood Cells 1 (0-5); Platelet Estimate Normal; Polychromasia Few; Segmented Neutrophils 78 % (50-85); Total Cells Counted 100
[2021-03-15 05:58] LABS: Albumin 1.9 G/DL (3.4-5.0); Bilirubin,Direct 0.46 MG/DL (0.0-0.20); Bilirubin,Indirect 0.5 MG/DL (0.0-1.0); Total Protein 5.8 G/DL (6.4-8.2)
[2021-03-15] MEDS: MENTHOL/ZINC OXIDE OINT 71 GM JAR TOP SCH ×2 (08:03→21:16)
[2021-03-15] MEDS ORDERED: LEVOFLOXACIN INJ 750 MG/150 ML PREMIX IV ONE (09:00)
[2021-03-15] MEDS: ASPIRIN CHEW 81 MG TABLET PO SCH (10:02)
[2021-03-15] MEDS: SILDENAFIL 20 MG TABLET PO SCH ×3 (10:02→21:16)
[2021-03-15] MEDS: PANTOPRAZOLE 40 MG VIAL IV SCH (18:43)
[2021-03-16] MEDS: INSULIN REGULAR 100 UNIT/ML SUBCUT SCH ×4 (00:06→18:05)
[2021-03-16 03:58] LABS: ABG Base Excess 2.1 MMOL/L (-2.5-2.5); ABG HCO3 26.6 MMOL/L (20-26); ABG PCO2 41.3 MM HG (35-48); ABG PH 7.427 (7.35-7.45); ABG PO2 107.8 MM HG (80-95); ABG TCO2 27.9 MMOL/L (23-27); Allen Test Positive; Pt O2 Delivery Device Ventilator
[2021-03-16 04:40] LABS: Basophils # 0.1 10*3/uL (0.0-0.2); Basophils % 0.3 % (0.0-0.8); Eosinophils # 0.4 10*3/uL (0.0-0.87); Eosinophils % 2.6 % (0.00-10.9); Hemoglobin 7.5 GM/DL (12.0-16.0); Immature Granulocytes % 4.7 %; Immature Granulocytes Absolute 0.78 #; Lymphocytes # 1.3 10*3/uL (1.4-4.0); Lymphocytes % 7.6 % (21.3-54.2); Mean Corpuscular Volume 94.3 FL (87-102); Mean Platelet Volume 10.5 FL (9.6-12.0); Monocytes % 7.5 % (1.7-12.7); NRBC # 0.06 10*3/uL; Neutrophils % 77.3 % (38.7-73.9); Platelet Count 178 T/CUMM (130-400); Red Blood Count 2.65 MC/CUMM (3.8-5.5); Red Cell Distribution Width 20.9 % (9.3-17.3); White Blood Count 16.6 T/CUMM (4-12)
[2021-03-16 04:51] LABS: Calcium 8.4 MG/DL (8.5-10.1); Osmolality,Calculated 298.5 MOS/KG (273-304); Potassium 3.4 MMOL/L (3.5-5.1)
[2021-03-16 04:53] LABS: Albumin 1.9 G/DL (3.4-5.0); Bilirubin,Direct 0.46 MG/DL (0.0-0.20); Bilirubin,Indirect 0.4 MG/DL (0.0-1.0); Bilirubin,Total 0.9 MG/DL (0.20-1.00); Total Protein 5.2 G/DL (6.4-8.2)
[2021-03-16 05:02] LABS: Eosinophils 2 % (0-10); Lymphocytes 6 % (20-55); Platelet Estimate Adequate; Segmented Neutrophils 89 % (50-85); Total Cells Counted 100
[2021-03-16 05:03] LABS: Hypochromasia 1+; Macrocytosis Slight; Polychromasia Slight
[2021-03-16] MEDS: SILDENAFIL 20 MG TABLET PO SCH ×3 (08:14→20:41)
[2021-03-16] MEDS: ASPIRIN CHEW 81 MG TABLET PO SCH (08:14)
[2021-03-16] MEDS: MENTHOL/ZINC OXIDE OINT 71 GM JAR TOP SCH ×2 (10:07→20:41)
[2021-03-16] MEDS: PANTOPRAZOLE 40 MG VIAL IV SCH (18:09)
[2021-03-16] MEDS ORDERED: fentaNYL 100 MCG/2 ML VIAL IV ONE (20:28)
[2021-03-16] MEDS: fentaNYL 100 MCG/2 ML VIAL IV PRN (22:52)
[2021-03-17] MEDS: INSULIN REGULAR 100 UNIT/ML SUBCUT SCH ×5 (00:54→23:43)
[2021-03-17 03:19] LABS: ABG Base Excess 0.5 MMOL/L (-2.5-2.5); ABG HCO3 24.7 MMOL/L (20-26); ABG Oxygen Saturation 83.9 % (95-100); ABG PCO2 46.4 MM HG (35-48); ABG PO2 50.8 MM HG (80-95); ABG TCO2 24.7 MMOL/L (23-27)
[2021-03-17 04:29] LABS: Basophils % 0.3 % (0.0-0.8); Eosinophils # 0.4 10*3/uL (0.0-0.87); Eosinophils % 2.3 % (0.00-10.9); Hematocrit 24.6 VOL% (35.7-47.0); Hemoglobin 7.4 GM/DL (12.0-16.0); Immature Granulocytes % 3.1 %; Immature Granulocytes Absolute 0.49 #; Lymphocytes % 6.3 % (21.3-54.2); Mean Corpuscular HGB Conc 30.1 GM/DL (32-36); Mean Corpuscular Volume 94.6 FL (87-102); Mean Platelet Volume 10.8 FL (9.6-12.0); Monocytes % 7.1 % (1.7-12.7); NRBC # 0.04 10*3/uL; Neutrophils % 80.9 % (38.7-73.9); Platelet Count 177 T/CUMM (130-400); Red Cell Distribution Width 21.2 % (9.3-17.3); White Blood Count 15.8 T/CUMM (4-12)
[2021-03-17 04:41] LABS: Calcium 8.7 MG/DL (8.5-10.1); Osmolality,Calculated 306.4 MOS/KG (273-304); Potassium 3.3 MMOL/L (3.5-5.1)
[2021-03-17] MEDS: fentaNYL 100 MCG/2 ML VIAL IV PRN ×2 (08:18→20:55)
[2021-03-17] MEDS: SILDENAFIL 20 MG TABLET PO SCH ×3 (08:19→21:03)
[2021-03-17] MEDS: LEVOFLOXACIN INJ 500 MG/100 ML PREMIX IV SCH (08:19)
[2021-03-17] MEDS: ASPIRIN CHEW 81 MG TABLET PO SCH (08:19)
[2021-03-17] MEDS: MENTHOL/ZINC OXIDE OINT 71 GM JAR TOP SCH ×2 (08:37→21:03)
[2021-03-17] MEDS: DEXMEDETOMIDINE 200 MCG in SODIUM CHLORIDE 0.9% 48 ML IV PRN ×2 (11:47→16:32)
[2021-03-17] MEDS: PANTOPRAZOLE 40 MG VIAL IV SCH (18:52)
[2021-03-17] MEDS ORDERED: DEXMEDETOMIDINE 400 MCG in SODIUM CHLORIDE 0.9% 96 ML IV PRN (18:56)
[2021-03-18] MEDS: fentaNYL 100 MCG/2 ML VIAL IV PRN ×2 (00:10→07:48)
[2021-03-18 03:43] LABS: ABG Base Excess -2.2 MMOL/L (-2.5-2.5); ABG HCO3 23.1 MMOL/L (20-26); ABG Oxygen Saturation 98.2 % (95-100); ABG PCO2 42.5 MM HG (35-48); ABG PH 7.354 (7.35-7.45); ABG PO2 118.8 MM HG (80-95); ABG TCO2 24.5 MMOL/L (23-27)
[2021-03-18 04:19] LABS: Basophils % 0.1 % (0.0-0.8); Eosinophils # 0.1 10*3/uL (0.0-0.87); Eosinophils % 0.5 % (0.00-10.9); Hemoglobin 7.5 GM/DL (12.0-16.0); Immature Granulocytes % 2.9 %; Immature Granulocytes Absolute 0.46 #; Lymphocytes % 6.1 % (21.3-54.2); Mean Corpuscular Volume 94.3 FL (87-102); Mean Platelet Volume 11.2 FL (9.6-12.0); Monocytes % 7.8 % (1.7-12.7); NRBC # 0.03 10*3/uL; Neutrophils % 82.6 % (38.7-73.9); Platelet Count 198 T/CUMM (130-400); Red Blood Count 2.65 MC/CUMM (3.8-5.5); White Blood Count 16.1 T/CUMM (4-12)
[2021-03-18 04:39] LABS: Osmolality,Calculated 307.8 MOS/KG (273-304); Potassium 3.7 MMOL/L (3.5-5.1)
[2021-03-18 04:54] LABS: Albumin 1.9 G/DL (3.4-5.0); Bilirubin,Direct 0.36 MG/DL (0.0-0.20); Bilirubin,Indirect 0.3 MG/DL (0.0-1.0); Bilirubin,Total 0.7 MG/DL (0.20-1.00); Total Protein 6.1 G/DL (6.4-8.2)
[2021-03-18] MEDS: INSULIN REGULAR 100 UNIT/ML SUBCUT SCH ×3 (05:00→17:56)
[2021-03-18 07:28] LABS: Hypochromasia 1+; Lymphocytes 9 % (20-55); Microcytosis 1+; Ovalocytes Slight; Platelet Estimate Adequate; Segmented Neutrophils 85 % (50-85); Total Cells Counted 100
[2021-03-18] MEDS: ASPIRIN CHEW 81 MG TABLET PO SCH (08:04)
[2021-03-18] MEDS: SILDENAFIL 20 MG TABLET PO SCH ×3 (08:04→20:36)
[2021-03-18] MEDS: MENTHOL/ZINC OXIDE OINT 71 GM JAR TOP SCH ×2 (08:04→20:36)
[2021-03-18] MEDS: HEPARIN 5,000 UNIT/1 ML VIAL SUBCUT SCH ×2 (13:09→20:36)
[2021-03-18] MEDS: ACETAMINOPHEN 325 MG TABLET PO PRN (18:19)
[2021-03-18] MEDS: PANTOPRAZOLE 40 MG VIAL IV SCH (20:38)
[2021-03-18] MEDS ORDERED: LORazepam 2 MG/1 ML VIAL IV ONE (21:42)
[2021-03-19] MEDS: INSULIN REGULAR 100 UNIT/ML SUBCUT SCH ×4 (00:44→17:55)
[2021-03-19] MEDS: HEPARIN 5,000 UNIT/1 ML VIAL SUBCUT SCH ×2 (04:10→12:20)
[2021-03-19 05:09] LABS: Basophils % 0.3 % (0.0-0.8); Eosinophils # 0.1 10*3/uL (0.0-0.87); Eosinophils % 0.9 % (0.00-10.9); Hematocrit 25.2 VOL% (35.7-47.0); Hemoglobin 7.5 GM/DL (12.0-16.0); Immature Granulocytes % 1.5 %; Immature Granulocytes Absolute 0.21 #; Lymphocytes # 0.7 10*3/uL (1.4-4.0); Lymphocytes % 5.1 % (21.3-54.2); Mean Corpuscular HGB Conc 29.8 GM/DL (32-36); Mean Corpuscular Volume 92.6 FL (87-102); Mean Platelet Volume 10.2 FL (9.6-12.0); Monocytes % 9.6 % (1.7-12.7); NRBC # 0.02 10*3/uL; Neutrophils % 82.6 % (38.7-73.9); Platelet Count 206 T/CUMM (130-400); Red Blood Count 2.72 MC/CUMM (3.8-5.5); Red Cell Distribution Width 21.7 % (9.3-17.3); White Blood Count 14.1 T/CUMM (4-12)
[2021-03-19 05:15] LABS: ABG HCO3 24.4 MMOL/L (20-26); ABG Oxygen Saturation 91.2 % (95-100); ABG PCO2 40.8 MM HG (35-48); ABG PH 7.393 (7.35-7.45); ABG PO2 62.8 MM HG (80-95); ABG TCO2 23.3 MMOL/L (23-27); Allen Test Positive; Pt O2 Delivery Device BIPAP
[2021-03-19 05:28] LABS: Albumin 1.9 G/DL (3.4-5.0); Bilirubin,Total 0.8 MG/DL (0.20-1.00); Calcium 8.5 MG/DL (8.5-10.1); Osmolality,Calculated 301.7 MOS/KG (273-304); Total Protein 6.3 G/DL (6.4-8.2)
[2021-03-19 08:11] LABS: INR 1.1; PT Patient Result 12.5 SECS (10.5-12.0)
[2021-03-19 09:45] LABS: ABG Base Excess -0.7 MMOL/L (-2.5-2.5); ABG HCO3 23.8 MMOL/L (20-26); ABG PCO2 44.8 MM HG (35-48); ABG PH 7.354 (7.35-7.45); ABG PO2 76.6 MM HG (80-95); ABG TCO2 23.3 MMOL/L (23-27)
[2021-03-19] MEDS: ASPIRIN CHEW 81 MG TABLET PO SCH (09:47)
[2021-03-19] MEDS: PANTOPRAZOLE 40 MG VIAL IV SCH ×2 (09:48→20:05)
[2021-03-19] MEDS: MENTHOL/ZINC OXIDE OINT 71 GM JAR TOP SCH ×2 (09:48→20:05)
[2021-03-19] MEDS: SILDENAFIL 20 MG TABLET PO SCH ×3 (09:48→20:05)
[2021-03-19] MEDS: LEVOFLOXACIN INJ 500 MG/100 ML PREMIX IV SCH (09:49)
[2021-03-19] MEDS: ALBUTEROL 1.25 MG/3 ML NEB RESP TX SCH ×2 (14:00→19:25)
[2021-03-19] MEDS: ACETAMINOPHEN 325 MG TABLET PO PRN (14:50)
[2021-03-19] MEDS: fentaNYL 100 MCG/2 ML VIAL IV PRN (16:10)
[2021-03-19] MEDS: LORazepam 2 MG/1 ML VIAL IV PRN (20:05)
[2021-03-20] MEDS: INSULIN REGULAR 100 UNIT/ML SUBCUT SCH ×4 (00:37→18:00)
[2021-03-20] MEDS: LORazepam 2 MG/1 ML VIAL IV PRN ×2 (00:43→20:12)
[2021-03-20] MEDS: ALBUTEROL 1.25 MG/3 ML NEB RESP TX SCH ×4 (01:05→19:18)
[2021-03-20 07:24] LABS: ABG Base Excess -0.3 MMOL/L (-2.5-2.5); ABG Oxygen Saturation 94.2 % (95-100); ABG PH 7.419 (7.35-7.45); ABG PO2 72.9 MM HG (80-95); ABG TCO2 25.2 MMOL/L (23-27)
[2021-03-20 07:26] LABS: Basophils % 0.2 % (0.0-0.8); Eosinophils # 0.2 10*3/uL (0.0-0.87); Hematocrit 27.7 VOL% (35.7-47.0); Hemoglobin 8.2 GM/DL (12.0-16.0); Immature Granulocytes % 1.5 %; Immature Granulocytes Absolute 0.18 #; Lymphocytes # 0.8 10*3/uL (1.4-4.0); Lymphocytes % 6.2 % (21.3-54.2); Mean Corpuscular HGB Conc 29.6 GM/DL (32-36); Mean Corpuscular Volume 93.3 FL (87-102); Mean Platelet Volume 10.8 FL (9.6-12.0); Monocytes % 10.9 % (1.7-12.7); NRBC # 0.02 10*3/uL; Neutrophils % 79.2 % (38.7-73.9); Platelet Count 256 T/CUMM (130-400); Red Blood Count 2.97 MC/CUMM (3.8-5.5); Red Cell Distribution Width 21.5 % (9.3-17.3); White Blood Count 12.3 T/CUMM (4-12)
[2021-03-20 07:52] LABS: Osmolality,Calculated 303.7 MOS/KG (273-304); Potassium 3.6 MMOL/L (3.5-5.1)
[2021-03-20] MEDS: SODIUM CHLORIDE 0.9% 1,000 ML IV SCH (08:00)
[2021-03-20] MEDS ORDERED: SODIUM CHLORIDE 0.9% 1,000 ML IV PRN (08:00)
[2021-03-20] MEDS: PANTOPRAZOLE 40 MG VIAL IV SCH ×2 (08:15→20:24)
[2021-03-20] MEDS: SILDENAFIL 20 MG TABLET PO SCH ×3 (09:00→20:24)
[2021-03-20] MEDS: MENTHOL/ZINC OXIDE OINT 71 GM JAR TOP SCH ×2 (09:30→20:24)
[2021-03-20] MEDS: methylPREDNISolone SOD SUC 40 MG/1 ML VIAL IV SCH ×2 (14:35→21:09)
[2021-03-20] MEDS: MORPHINE 2 MG/1 ML SYRINGE IV PRN (21:48)
[2021-03-21] MEDS: INSULIN REGULAR 100 UNIT/ML SUBCUT SCH ×4 (00:20→17:40)
[2021-03-21] MEDS: ALBUTEROL 1.25 MG/3 ML NEB RESP TX SCH ×4 (01:15→19:15)
[2021-03-21] MEDS: LORazepam 2 MG/1 ML VIAL IV PRN ×2 (01:59→20:26)
[2021-03-21] MEDS: SODIUM CHLORIDE 3% 4 ML NEB RESP TX SCH ×3 (02:09→19:15)
[2021-03-21 04:21] LABS: ABG HCO3 23.5 MMOL/L (20-26); ABG Oxygen Saturation 91.6 % (95-100); ABG PCO2 43.2 MM HG (35-48); ABG PH 7.362 (7.35-7.45); ABG PO2 68.6 MM HG (80-95); ABG TCO2 22.5 MMOL/L (23-27); Allen Test Positive
[2021-03-21 05:15] LABS: Basophils % 0.1 % (0.0-0.8); Hemoglobin 9.3 GM/DL (12.0-16.0); Lymphocytes # 0.4 10*3/uL (1.4-4.0); Lymphocytes % 3.9 % (21.3-54.2); Mean Corpuscular Volume 93.2 FL (87-102); Mean Platelet Volume 10.4 FL (9.6-12.0); Monocytes % 3.5 % (1.7-12.7); Neutrophils % 91.5 % (38.7-73.9); Platelet Count 266 T/CUMM (130-400); Red Blood Count 3.22 MC/CUMM (3.8-5.5); Red Cell Distribution Width 20.8 % (9.3-17.3); White Blood Count 9.5 T/CUMM (4-12)
[2021-03-21 05:34] LABS: Albumin 2.3 G/DL (3.4-5.0); Bilirubin,Total 0.9 MG/DL (0.20-1.00); Calcium 9.1 MG/DL (8.5-10.1); Osmolality,Calculated 294.8 MOS/KG (273-304); Potassium 4.1 MMOL/L (3.5-5.1); Total Protein 7.3 G/DL (6.4-8.2)
[2021-03-21 05:41] LABS: Hypochromasia 1+; Lymphocytes 3 % (20-55); Microcytosis 1+; Platelet Estimate Adequate; Segmented Neutrophils 96 % (50-85); Total Cells Counted 100
[2021-03-21] MEDS: methylPREDNISolone SOD SUC 40 MG/1 ML VIAL IV SCH ×3 (06:13→23:08)
[2021-03-21] MEDS: PANTOPRAZOLE 40 MG VIAL IV SCH ×2 (08:30→20:21)
[2021-03-21] MEDS: LEVOFLOXACIN INJ 500 MG/100 ML PREMIX IV SCH (08:30)
[2021-03-21] MEDS: SILDENAFIL 20 MG TABLET PO SCH ×3 (09:00→20:24)
[2021-03-21] MEDS: MENTHOL/ZINC OXIDE OINT 71 GM JAR TOP SCH ×2 (11:15→20:29)
[2021-03-21] MEDS: SODIUM CHLORIDE 0.9% 1,000 ML IV SCH ×2 (11:50→14:35)
[2021-03-22] MEDS: ALBUTEROL 1.25 MG/3 ML NEB RESP TX SCH ×4 (00:18→19:31)
[2021-03-22] MEDS: INSULIN REGULAR 100 UNIT/ML SUBCUT SCH ×4 (00:31→18:29)
[2021-03-22] MEDS: LORazepam 2 MG/1 ML VIAL IV PRN ×3 (00:31→20:06)
[2021-03-22] MEDS: MORPHINE 2 MG/1 ML SYRINGE IV PRN ×2 (03:23→21:30)
[2021-03-22 05:19] LABS: Calcium 8.8 MG/DL (8.5-10.1); Osmolality,Calculated 301.1 MOS/KG (273-304); Potassium 4.1 MMOL/L (3.5-5.1)
[2021-03-22 05:22] LABS: Basophils % 0.1 % (0.0-0.8); Hematocrit 29.9 VOL% (35.7-47.0); Hemoglobin 9.1 GM/DL (12.0-16.0); Immature Granulocytes % 0.6 %; Immature Granulocytes Absolute 0.06 #; Lymphocytes # 0.4 10*3/uL (1.4-4.0); Mean Corpuscular HGB Conc 30.4 GM/DL (32-36); Mean Corpuscular Volume 92.6 FL (87-102); Mean Platelet Volume 10.4 FL (9.6-12.0); NRBC # 0.02 10*3/uL; Neutrophils % 91.3 % (38.7-73.9); Platelet Count 299 T/CUMM (130-400); Red Blood Count 3.23 MC/CUMM (3.8-5.5); Red Cell Distribution Width 20.5 % (9.3-17.3); White Blood Count 9.6 T/CUMM (4-12)
[2021-03-22] MEDS: methylPREDNISolone SOD SUC 40 MG/1 ML VIAL IV SCH ×3 (05:40→22:35)
[2021-03-22 06:21] LABS: Lymphocytes 3 % (20-55); Segmented Neutrophils 95 % (50-85); Total Cells Counted 100
[2021-03-22 06:22] LABS: Acanthocytes Few; Hypochromasia 1+; Microcytosis 1+; Ovalocytes Slight; Polychromasia Slight; Target Cells Slight
[2021-03-22 06:23] LABS: Platelet Estimate Normal
[2021-03-22] MEDS: SODIUM CHLORIDE 3% 4 ML NEB RESP TX SCH ×2 (07:43→19:31)
[2021-03-22] MEDS: MENTHOL/ZINC OXIDE OINT 71 GM JAR TOP SCH ×2 (08:24→20:05)
[2021-03-22] MEDS: SILDENAFIL 20 MG TABLET PO SCH ×3 (08:24→20:05)
[2021-03-22] MEDS: PANTOPRAZOLE 40 MG VIAL IV SCH ×2 (08:24→20:05)
[2021-03-22] MEDS: ENOXAPARIN 120 MG/0.8 ML SYRINGE SUBCUT SCH (14:50)
[2021-03-23] MEDS: ALBUTEROL 1.25 MG/3 ML NEB RESP TX SCH ×6 (00:15→23:39)
[2021-03-23] MEDS: INSULIN REGULAR 100 UNIT/ML SUBCUT SCH ×5 (00:55→20:49)
[2021-03-23 04:43] LABS: Hematocrit 31.3 VOL% (35.7-47.0); Hemoglobin 9.3 GM/DL (12.0-16.0); Immature Granulocytes % 0.7 %; Immature Granulocytes Absolute 0.07 #; Lymphocytes # 0.3 10*3/uL (1.4-4.0); Lymphocytes % 2.8 % (21.3-54.2); Mean Corpuscular HGB Conc 29.7 GM/DL (32-36); Mean Corpuscular Volume 93.4 FL (87-102); Mean Platelet Volume 9.9 FL (9.6-12.0); Monocytes % 3.9 % (1.7-12.7); Neutrophils % 92.6 % (38.7-73.9); Platelet Count 325 T/CUMM (130-400); Red Blood Count 3.35 MC/CUMM (3.8-5.5); Red Cell Distribution Width 20.8 % (9.3-17.3); White Blood Count 10.1 T/CUMM (4-12)
[2021-03-23 04:57] LABS: Calcium 8.6 MG/DL (8.5-10.1); Osmolality,Calculated 298.5 MOS/KG (273-304); Potassium 4.2 MMOL/L (3.5-5.1)
[2021-03-23] MEDS: methylPREDNISolone SOD SUC 40 MG/1 ML VIAL IV SCH ×3 (06:20→21:12)
[2021-03-23 07:25] LABS: Anisocytosis 2+; Band Neutrophils 2 % (0-10); Burr Cells Few; Lymphocytes 2 % (20-55); Macrocytosis 1+; Ovalocytes Few; Platelet Estimate Normal; Poikilocytosis Slight; Segmented Neutrophils 93 % (50-85); Tear Drop Cells Few; Total Cells Counted 100
[2021-03-23] MEDS: SODIUM CHLORIDE 3% 4 ML NEB RESP TX SCH ×2 (07:32→19:55)
[2021-03-23] MEDS: SILDENAFIL 20 MG TABLET PO SCH ×3 (08:02→20:49)
[2021-03-23] MEDS: PANTOPRAZOLE 40 MG VIAL IV SCH ×2 (08:02→20:46)
[2021-03-23] MEDS: LEVOFLOXACIN INJ 500 MG/100 ML PREMIX IV SCH (08:02)
[2021-03-23] MEDS: MENTHOL/ZINC OXIDE OINT 71 GM JAR TOP SCH ×2 (09:21→20:49)
[2021-03-23] MEDS: ENOXAPARIN 120 MG/0.8 ML SYRINGE SUBCUT SCH (15:47)
[2021-03-23] MEDS: LORazepam 2 MG/1 ML VIAL IV PRN (21:27)
[2021-03-24 02:04] LABS: Hematocrit 30.2 VOL% (35.7-47.0); Hemoglobin 9.1 GM/DL (12.0-16.0)
[2021-03-24 02:24] LABS: Albumin 2.5 G/DL (3.4-5.0); Bilirubin,Total 0.7 MG/DL (0.20-1.00); Calcium 8.6 MG/DL (8.5-10.1); Osmolality,Calculated 301.8 MOS/KG (273-304); Potassium 4.5 MMOL/L (3.5-5.1); Total Protein 6.7 G/DL (6.4-8.2)
[2021-03-24] MEDS: ALBUTEROL 1.25 MG/3 ML NEB RESP TX SCH ×6 (04:15→23:10)
[2021-03-24 04:39] LABS: Basophils % 0.1 % (0.0-0.8); Hematocrit 28.5 VOL% (35.7-47.0); Hemoglobin 8.7 GM/DL (12.0-16.0); Immature Granulocytes % 0.9 %; Immature Granulocytes Absolute 0.09 #; Lymphocytes # 0.3 10*3/uL (1.4-4.0); Lymphocytes % 2.9 % (21.3-54.2); Mean Corpuscular HGB Conc 30.5 GM/DL (32-36); Mean Corpuscular Volume 93.1 FL (87-102); Mean Platelet Volume 9.7 FL (9.6-12.0); Monocytes % 5.2 % (1.7-12.7); NRBC # 0.02 10*3/uL; Neutrophils % 90.9 % (38.7-73.9); Platelet Count 292 T/CUMM (130-400); Red Blood Count 3.06 MC/CUMM (3.8-5.5); Red Cell Distribution Width 20.1 % (9.3-17.3); White Blood Count 10.5 T/CUMM (4-12)
[2021-03-24 05:04] LABS: Anisocytosis 2+; Band Neutrophils 2 % (0-10); Lymphocytes 3 % (20-55); Macrocytosis Slight; Ovalocytes Few; Platelet Estimate Normal; Segmented Neutrophils 91 % (50-85); Total Cells Counted 100
[2021-03-24] MEDS: methylPREDNISolone SOD SUC 40 MG/1 ML VIAL IV SCH ×3 (05:43→17:22)
[2021-03-24] MEDS: SODIUM CHLORIDE 3% 4 ML NEB RESP TX SCH ×2 (07:31→19:28)
[2021-03-24] MEDS: INSULIN REGULAR 100 UNIT/ML SUBCUT SCH ×4 (08:39→21:05)
[2021-03-24] MEDS: PANTOPRAZOLE 40 MG VIAL IV SCH ×2 (08:40→21:06)
[2021-03-24] MEDS: SILDENAFIL 20 MG TABLET PO SCH ×3 (08:40→21:06)
[2021-03-24 10:36] LABS: Hematocrit 28.2 VOL% (35.7-47.0); Hemoglobin 8.4 GM/DL (12.0-16.0)
[2021-03-24] MEDS: MENTHOL/ZINC OXIDE OINT 71 GM JAR TOP SCH ×2 (11:00→21:06)
[2021-03-24] MEDS: LORazepam 2 MG/1 ML VIAL IV PRN ×2 (11:16→19:55)
[2021-03-24 16:39] LABS: Hematocrit 28.8 VOL% (35.7-47.0); Hemoglobin 8.7 GM/DL (12.0-16.0)
[2021-03-24] MEDS: MORPHINE 2 MG/1 ML SYRINGE IV PRN (19:58)
[2021-03-25] MEDS: methylPREDNISolone SOD SUC 40 MG/1 ML VIAL IV SCH ×4 (01:29→17:30)
[2021-03-25] MEDS: ALBUTEROL 1.25 MG/3 ML NEB RESP TX SCH ×6 (03:03→23:16)
[2021-03-25 04:32] LABS: Basophils % 0.1 % (0.0-0.8); Hematocrit 29.9 VOL% (35.7-47.0); Hemoglobin 8.9 GM/DL (12.0-16.0); Immature Granulocytes % 0.7 %; Immature Granulocytes Absolute 0.09 #; Lymphocytes # 0.4 10*3/uL (1.4-4.0); Lymphocytes % 3.3 % (21.3-54.2); Mean Corpuscular HGB Conc 29.8 GM/DL (32-36); Mean Corpuscular Volume 93.7 FL (87-102); Mean Platelet Volume 10.3 FL (9.6-12.0); Monocytes % 5.8 % (1.7-12.7); NRBC # 0.04 10*3/uL; Neutrophils % 90.1 % (38.7-73.9); Platelet Count 351 T/CUMM (130-400); Red Blood Count 3.19 MC/CUMM (3.8-5.5); Red Cell Distribution Width 19.9 % (9.3-17.3); White Blood Count 12.6 T/CUMM (4-12)
[2021-03-25 04:59] LABS: Hypochromasia 1+; Lymphocytes 6 % (20-55); Microcytosis 1+; Ovalocytes Slight; Platelet Estimate Adequate; Segmented Neutrophils 86 % (50-85); Total Cells Counted 100
[2021-03-25 05:32] LABS: Albumin 2.5 G/DL (3.4-5.0); Bilirubin,Total 1.4 MG/DL (0.20-1.00); Osmolality,Calculated 312.5 MOS/KG (273-304); Potassium 5.1 MMOL/L (3.5-5.1); Total Protein 6.7 G/DL (6.4-8.2)
[2021-03-25 06:27] LABS: Risk Ratio 2.82; VLDL Cholesterol 18.2 MG/DL
[2021-03-25] MEDS: SODIUM CHLORIDE 3% 4 ML NEB RESP TX SCH ×2 (07:39→18:25)
[2021-03-25] MEDS: INSULIN REGULAR 100 UNIT/ML SUBCUT SCH ×4 (08:57→20:10)
[2021-03-25] MEDS: LEVOFLOXACIN INJ 500 MG/100 ML PREMIX IV SCH (09:51)
[2021-03-25] MEDS: MENTHOL/ZINC OXIDE OINT 71 GM JAR TOP SCH ×2 (09:52→20:09)
[2021-03-25] MEDS: SILDENAFIL 20 MG TABLET PO SCH ×3 (09:52→20:10)
[2021-03-25] MEDS: PANTOPRAZOLE 40 MG VIAL IV SCH ×2 (09:52→20:10)
[2021-03-25] MEDS: ATORVASTATIN 80 MG TABLET PO SCH (20:10)
[2021-03-26] MEDS: methylPREDNISolone SOD SUC 40 MG/1 ML VIAL IV SCH ×3 (00:49→17:46)
[2021-03-26] MEDS: ALBUTEROL 1.25 MG/3 ML NEB RESP TX SCH ×5 (03:50→18:08)
[2021-03-26 04:33] LABS: Hematocrit 28.4 VOL% (35.7-47.0); Hemoglobin 8.7 GM/DL (12.0-16.0); Immature Granulocytes % 1.2 %; Immature Granulocytes Absolute 0.15 #; Lymphocytes # 0.4 10*3/uL (1.4-4.0); Lymphocytes % 3.2 % (21.3-54.2); Mean Corpuscular HGB Conc 30.6 GM/DL (32-36); Mean Corpuscular Volume 92.2 FL (87-102); Monocytes % 5.2 % (1.7-12.7); NRBC # 0.04 10*3/uL; Neutrophils % 90.4 % (38.7-73.9); Platelet Count 296 T/CUMM (130-400); Red Blood Count 3.08 MC/CUMM (3.8-5.5); Red Cell Distribution Width 19.9 % (9.3-17.3); White Blood Count 12.8 T/CUMM (4-12)
[2021-03-26 04:48] LABS: Calcium 8.1 MG/DL (8.5-10.1); Osmolality,Calculated 298.7 MOS/KG (273-304); Potassium 4.8 MMOL/L (3.5-5.1)
[2021-03-26 04:56] LABS: Hypochromasia 1+; Lymphocytes 1 % (20-55); Microcytosis 1+; Platelet Estimate Adequate; Segmented Neutrophils 93 % (50-85); Total Cells Counted 100
[2021-03-26] MEDS: SODIUM CHLORIDE 3% 4 ML NEB RESP TX SCH ×2 (06:58→18:08)
[2021-03-26] MEDS: INSULIN REGULAR 100 UNIT/ML SUBCUT SCH ×4 (07:33→21:06)
[2021-03-26] MEDS: SILDENAFIL 20 MG TABLET PO SCH ×3 (09:41→21:06)
[2021-03-26] MEDS: PANTOPRAZOLE 40 MG VIAL IV SCH ×2 (09:43→21:06)
[2021-03-26] MEDS: MENTHOL/ZINC OXIDE OINT 71 GM JAR TOP SCH ×2 (11:51→21:06)
[2021-03-26] MEDS: ATORVASTATIN 80 MG TABLET PO SCH (21:06)
[2021-03-27] MEDS: ALBUTEROL 1.25 MG/3 ML NEB RESP TX SCH ×6 (00:35→19:25)
[2021-03-27 05:06] LABS: Basophils % 0.1 % (0.0-0.8); Hematocrit 28.4 VOL% (35.7-47.0); Hemoglobin 8.6 GM/DL (12.0-16.0); Immature Granulocytes Absolute 0.16 #; Lymphocytes # 0.5 10*3/uL (1.4-4.0); Mean Corpuscular HGB Conc 30.3 GM/DL (32-36); Mean Corpuscular Volume 92.2 FL (87-102); Mean Platelet Volume 10.2 FL (9.6-12.0); Monocytes % 4.5 % (1.7-12.7); NRBC # 0.04 10*3/uL; Neutrophils % 91.4 % (38.7-73.9); Platelet Count 271 T/CUMM (130-400); Red Blood Count 3.08 MC/CUMM (3.8-5.5); Red Cell Distribution Width 19.7 % (9.3-17.3); White Blood Count 16.2 T/CUMM (4-12)
[2021-03-27 05:37] LABS: Osmolality,Calculated 303.8 MOS/KG (273-304); Potassium 5.3 MMOL/L (3.5-5.1)
[2021-03-27 05:40] LABS: Lymphocytes 4 % (20-55); Platelet Estimate Normal; Segmented Neutrophils 93 % (50-85); Total Cells Counted 100
[2021-03-27] MEDS: methylPREDNISolone SOD SUC 40 MG/1 ML VIAL IV SCH ×2 (06:09→18:07)
[2021-03-27] MEDS: SODIUM CHLORIDE 3% 4 ML NEB RESP TX SCH ×2 (07:12→19:25)
[2021-03-27] MEDS: INSULIN REGULAR 100 UNIT/ML SUBCUT SCH ×4 (07:26→20:32)
[2021-03-27] MEDS: SILDENAFIL 20 MG TABLET PO SCH ×3 (10:09→20:31)
[2021-03-27] MEDS: PANTOPRAZOLE 40 MG VIAL IV SCH ×2 (10:09→20:31)
[2021-03-27] MEDS: MENTHOL/ZINC OXIDE OINT 71 GM JAR TOP SCH ×2 (10:09→20:32)
[2021-03-27] MEDS: LEVOFLOXACIN INJ 500 MG/100 ML PREMIX IV SCH (10:11)
[2021-03-27] MEDS ORDERED: TUBERCULIN SKIN TEST 0.1 ML SYRINGE INTRADERM ONE (14:00)
[2021-03-27] MEDS: ATORVASTATIN 80 MG TABLET PO SCH (20:31)
[2021-03-28] MEDS: ALBUTEROL 1.25 MG/3 ML NEB RESP TX SCH ×6 (00:10→19:51)
[2021-03-28] MEDS: methylPREDNISolone SOD SUC 40 MG/1 ML VIAL IV SCH ×2 (05:19→17:33)
[2021-03-28 05:58] LABS: Basophils % 0.1 % (0.0-0.8); Hematocrit 27.7 VOL% (35.7-47.0); Hemoglobin 8.6 GM/DL (12.0-16.0); Immature Granulocytes % 0.9 %; Immature Granulocytes Absolute 0.17 #; Lymphocytes # 0.4 10*3/uL (1.4-4.0); Lymphocytes % 2.1 % (21.3-54.2); Mean Corpuscular Volume 92.3 FL (87-102); Mean Platelet Volume 10.9 FL (9.6-12.0); NRBC # 0.02 10*3/uL; Neutrophils % 92.9 % (38.7-73.9); Platelet Count 245 T/CUMM (130-400); Red Cell Distribution Width 19.7 % (9.3-17.3); White Blood Count 19.1 T/CUMM (4-12)
[2021-03-28 06:15] LABS: Osmolality,Calculated 298.5 MOS/KG (273-304); Potassium 4.9 MMOL/L (3.5-5.1)
[2021-03-28 06:31] LABS: Hypochromasia 1+; Lymphocytes 2 % (20-55); Microcytosis 1+; Ovalocytes Slight; Platelet Estimate Adequate; Segmented Neutrophils 95 % (50-85); Total Cells Counted 100
[2021-03-28] MEDS: SODIUM CHLORIDE 3% 4 ML NEB RESP TX SCH ×2 (07:02→19:52)
[2021-03-28] MEDS: INSULIN REGULAR 100 UNIT/ML SUBCUT SCH ×4 (07:36→21:06)
[2021-03-28] MEDS: PANTOPRAZOLE 40 MG VIAL IV SCH ×2 (08:00→20:37)
[2021-03-28] MEDS: SILDENAFIL 20 MG TABLET PO SCH ×3 (08:00→20:36)
[2021-03-28] MEDS: MENTHOL/ZINC OXIDE OINT 71 GM JAR TOP SCH ×2 (08:00→21:06)
[2021-03-28] MEDS: ATORVASTATIN 80 MG TABLET PO SCH (20:36)
[2021-03-29] MEDS: ALBUTEROL 1.25 MG/3 ML NEB RESP TX SCH ×7 (00:05→23:50)
[2021-03-29] MEDS: methylPREDNISolone SOD SUC 40 MG/1 ML VIAL IV SCH ×2 (04:30→16:48)
[2021-03-29] MEDS: SODIUM CHLORIDE 3% 4 ML NEB RESP TX SCH ×2 (07:40→19:30)
[2021-03-29] MEDS: INSULIN REGULAR 100 UNIT/ML SUBCUT SCH ×4 (10:19→21:26)
[2021-03-29] MEDS: SILDENAFIL 20 MG TABLET PO SCH ×3 (10:36→20:49)
[2021-03-29] MEDS: PANTOPRAZOLE 40 MG VIAL IV SCH (10:36)
[2021-03-29] MEDS: LEVOFLOXACIN INJ 500 MG/100 ML PREMIX IV SCH (14:31)
[2021-03-29] MEDS: MENTHOL/ZINC OXIDE OINT 71 GM JAR TOP SCH ×2 (14:32→20:50)
[2021-03-29] MEDS: PANTOPRAZOLE 40 MG TABLET PO SCH (16:48)
[2021-03-29] MEDS: ATORVASTATIN 80 MG TABLET PO SCH (20:49)
[2021-03-30] MEDS: ALBUTEROL 1.25 MG/3 ML NEB RESP TX SCH ×6 (03:28→23:05)
[2021-03-30 05:08] LABS: Basophils % 0.1 % (0.0-0.8); Eosinophils % 0.1 % (0.00-10.9); Hematocrit 28.1 VOL% (35.7-47.0); Hemoglobin 8.5 GM/DL (12.0-16.0); Immature Granulocytes % 1.1 %; Lymphocytes # 0.5 10*3/uL (1.4-4.0); Lymphocytes % 2.8 % (21.3-54.2); Mean Corpuscular HGB Conc 30.2 GM/DL (32-36); Mean Corpuscular Volume 94.3 FL (87-102); Mean Platelet Volume 10.6 FL (9.6-12.0); Monocytes % 6.3 % (1.7-12.7); Neutrophils % 89.6 % (38.7-73.9); Platelet Count 183 T/CUMM (130-400); Red Blood Count 2.98 MC/CUMM (3.8-5.5); Red Cell Distribution Width 19.5 % (9.3-17.3); White Blood Count 18.4 T/CUMM (4-12)
[2021-03-30] MEDS: methylPREDNISolone SOD SUC 40 MG/1 ML VIAL IV SCH ×2 (05:09→16:28)
[2021-03-30 05:24] LABS: Calcium 8.1 MG/DL (8.5-10.1); Potassium 4.8 MMOL/L (3.5-5.1)
[2021-03-30 05:54] LABS: Band Neutrophils 1 % (0-10); Hypochromasia Slight; Lymphocytes 2 % (20-55); Platelet Estimate Normal; Segmented Neutrophils 91 % (50-85); Total Cells Counted 100
[2021-03-30] MEDS: SODIUM CHLORIDE 3% 4 ML NEB RESP TX SCH ×2 (07:05→18:53)
[2021-03-30] MEDS: INSULIN REGULAR 100 UNIT/ML SUBCUT SCH ×4 (08:26→21:35)
[2021-03-30] MEDS: SILDENAFIL 20 MG TABLET PO SCH ×3 (08:47→20:35)
[2021-03-30] MEDS: PANTOPRAZOLE 40 MG TABLET PO SCH ×2 (08:47→16:28)
[2021-03-30] MEDS: MENTHOL/ZINC OXIDE OINT 71 GM JAR TOP SCH ×2 (08:50→20:35)
[2021-03-30] MEDS ORDERED: PHENOL 1.4% THROAT SPRAY 177 ML BOTTLE PO PRN (11:47)
[2021-03-30 15:17] LABS: % Iron Saturation 41.9 % (18-50)
[2021-03-30 15:26] LABS: Folate 5.42 NG/ML (5.38-24.0); Vitamin B12 > 2000 PG/ML (211-911)
[2021-03-30] MEDS ORDERED: HEPARIN 5,000 UNIT/1 ML VIAL SUBCUT SCH (15:30)
[2021-03-30] MEDS ORDERED: INFLUENZA VIRUS VACCINE 0.5 ML SYRINGE IM ONE (16:40)
[2021-03-30] MEDS: ATORVASTATIN 80 MG TABLET PO SCH (20:35)
[2021-03-31] MEDS: ALBUTEROL 1.25 MG/3 ML NEB RESP TX SCH ×6 (04:10→23:55)
[2021-03-31] MEDS: methylPREDNISolone SOD SUC 40 MG/1 ML VIAL IV SCH ×2 (05:23→16:54)
[2021-03-31 05:32] LABS: Basophils % 0.1 % (0.0-0.8); Eosinophils % 0.1 % (0.00-10.9); Hematocrit 26.7 VOL% (35.7-47.0); Hemoglobin 8.1 GM/DL (12.0-16.0); Immature Granulocytes % 1.2 %; Immature Granulocytes Absolute 0.21 #; Lymphocytes # 0.6 10*3/uL (1.4-4.0); Lymphocytes % 3.5 % (21.3-54.2); Mean Corpuscular HGB Conc 30.3 GM/DL (32-36); Mean Corpuscular Volume 93.7 FL (87-102); Mean Platelet Volume 11.3 FL (9.6-12.0); Monocytes % 6.8 % (1.7-12.7); Neutrophils % 88.3 % (38.7-73.9); Platelet Count 159 T/CUMM (130-400); Red Blood Count 2.85 MC/CUMM (3.8-5.5); Red Cell Distribution Width 19.4 % (9.3-17.3); White Blood Count 17.1 T/CUMM (4-12)
[2021-03-31 05:46] LABS: Calcium 8.2 MG/DL (8.5-10.1); Osmolality,Calculated 299.5 MOS/KG (273-304); Potassium 5.3 MMOL/L (3.5-5.1)
[2021-03-31 06:20] LABS: Hypochromasia 1+; Lymphocytes 4 % (20-55); Microcytosis 1+; Ovalocytes Few; Segmented Neutrophils 92 % (50-85); Total Cells Counted 100
[2021-03-31 06:21] LABS: Platelet Estimate Adequate; Target Cells Slight
[2021-03-31] MEDS: SODIUM CHLORIDE 3% 4 ML NEB RESP TX SCH ×2 (07:08→20:17)
[2021-03-31] MEDS: INSULIN REGULAR 100 UNIT/ML SUBCUT SCH ×4 (08:39→21:21)
[2021-03-31] MEDS: LEVOFLOXACIN INJ 500 MG/100 ML PREMIX IV SCH (08:41)
[2021-03-31] MEDS: MENTHOL/ZINC OXIDE OINT 71 GM JAR TOP SCH ×2 (08:41→20:36)
[2021-03-31] MEDS: SILDENAFIL 20 MG TABLET PO SCH ×3 (08:41→20:36)
[2021-03-31] MEDS: PANTOPRAZOLE 40 MG TABLET PO SCH ×2 (08:41→16:09)
[2021-03-31] MEDS: ATORVASTATIN 80 MG TABLET PO SCH (20:36)
[2021-04-01] MEDS: ALBUTEROL 1.25 MG/3 ML NEB RESP TX SCH ×4 (04:23→14:21)
[2021-04-01 05:34] LABS: Basophils % 0.1 % (0.0-0.8); Hematocrit 27.5 VOL% (35.7-47.0); Hemoglobin 8.3 GM/DL (12.0-16.0); Immature Granulocytes % 0.9 %; Immature Granulocytes Absolute 0.13 #; Lymphocytes # 0.5 10*3/uL (1.4-4.0); Lymphocytes % 3.2 % (21.3-54.2); Mean Corpuscular HGB Conc 30.2 GM/DL (32-36); Mean Corpuscular Volume 93.2 FL (87-102); Monocytes % 6.6 % (1.7-12.7); Neutrophils % 89.2 % (38.7-73.9); Platelet Count 153 T/CUMM (130-400); Red Blood Count 2.95 MC/CUMM (3.8-5.5); White Blood Count 15.2 T/CUMM (4-12)
[2021-04-01] MEDS: methylPREDNISolone SOD SUC 40 MG/1 ML VIAL IV SCH (05:36)
[2021-04-01 05:49] LABS: Calcium 7.8 MG/DL (8.5-10.1); Osmolality,Calculated 300.2 MOS/KG (273-304); Potassium 5.8 MMOL/L (3.5-5.1)
[2021-04-01 06:05] LABS: Lymphocytes 4 % (20-55); Segmented Neutrophils 89 % (50-85); Total Cells Counted 100
[2021-04-01 06:06] LABS: Acanthocytes Few; Hypochromasia 1+; Microcytosis 1+; Tear Drop Cells Slight
[2021-04-01 06:07] LABS: Ovalocytes Few; Platelet Estimate Adequate
[2021-04-01] MEDS: SODIUM CHLORIDE 3% 4 ML NEB RESP TX SCH (07:16)
[2021-04-01] MEDS: INSULIN REGULAR 100 UNIT/ML SUBCUT SCH ×3 (08:20→15:43)
[2021-04-01] MEDS: SILDENAFIL 20 MG TABLET PO SCH ×2 (08:28→14:09)
[2021-04-01] MEDS: PANTOPRAZOLE 40 MG TABLET PO SCH (08:29)
[2021-04-01] MEDS: MENTHOL/ZINC OXIDE OINT 71 GM JAR TOP SCH (09:14)
[2021-04-01] MEDS: ACETAMINOPHEN 325 MG TABLET PO PRN (14:10)
[2021-04-01 15:22] VITALS: BP 126/46
== END 2021-04-01 16:20 | DRG 640 ==
LOC: EDBD → EDUNIT# → N.ED 16:32 → N.EDINP 17:33 → SUATTDRO 17:33 → N.CC 18:32 → N.ICU 18:58 → N.3E 03-28 11:51
PROVIDERS: ADMIT Family Medicine; ATTEND Internal Medicine

== ENCOUNTER 2021-06-30 22:32 | Inpatient (IN) ==
[2021-07-01 00:52] LABS: Basophils % 0.3 % (0.0-0.8); Hematocrit 37.5 VOL% (35.7-47.0); Hemoglobin 11.2 GM/DL (12.0-16.0); Immature Granulocytes % 0.6 %; Immature Granulocytes Absolute 0.05 #; Lymphocytes # 0.8 10*3/uL (1.4-4.0); Lymphocytes % 10.5 % (21.3-54.2); Mean Corpuscular HGB Conc 29.9 GM/DL (32-36); Mean Platelet Volume 12.1 FL (9.6-12.0); Monocytes % 5.8 % (1.7-12.7); NRBC # 0.02 10*3/uL; Neutrophils % 82.8 % (38.7-73.9); Platelet Count 197 T/CUMM (130-400); Red Blood Count 4.52 MC/CUMM (3.8-5.5); Red Cell Distribution Width 17.6 % (9.3-17.3); White Blood Count 7.8 T/CUMM (4-12)
[2021-07-01 00:54] LABS: Albumin 1.6 G/DL (3.4-5.0); Bilirubin,Total 0.5 MG/DL (0.20-1.00); Calcium 8.7 MG/DL (8.5-10.1); Osmolality,Calculated 279.7 MOS/KG (273-304); Potassium 3.6 MMOL/L (3.5-5.1); Total Protein 5.3 G/DL (6.4-8.2)
[2021-07-01 01:17] LABS: ABG Base Excess 3.4 MMOL/L (-2.5-2.5); ABG HCO3 27.4 MMOL/L (20-26); ABG Oxygen Saturation 98.7 % (95-100); ABG PCO2 62.8 MM HG (35-48); ABG PH 7.308 (7.35-7.45); ABG TCO2 28.3 MMOL/L (23-27)
[2021-07-01] MEDS ORDERED: GLUCAGON 1 MG VIAL IM PRN (02:24)
[2021-07-01] MEDS ORDERED: ONDANSETRON 4 MG/2 ML VIAL IV PRN (02:25)
[2021-07-01] MEDS ORDERED: SIMETHICONE CHEW 125 MG TABLET PO PRN (02:25)
[2021-07-01] MEDS ORDERED: ACETAMINOPHEN 325 MG TABLET PO PRN (02:25)
[2021-07-01] MEDS ORDERED: DEXTROSE 50% 25 GM/50 ML SYRINGE IV PRN (02:35)
[2021-07-01] MEDS ORDERED: FUROSEMIDE 40 MG/4 ML VIAL IV STA (02:50)
[2021-07-01] MEDS: PIPERACILLIN/TAZOBACTAM 3,375 MG in SODIUM CHLORIDE 0.9% 100 ML IV SCH ×2 (05:06→17:45)
[2021-07-01 05:50] LABS: Basophils % 0.1 % (0.0-0.8); Hematocrit 37.8 VOL% (35.7-47.0); Hemoglobin 11.3 GM/DL (12.0-16.0); Immature Granulocytes % 0.5 %; Immature Granulocytes Absolute 0.05 #; Lymphocytes # 1.7 10*3/uL (1.4-4.0); Lymphocytes % 17.9 % (21.3-54.2); Mean Corpuscular HGB Conc 29.9 GM/DL (32-36); Mean Corpuscular Volume 83.4 FL (87-102); Mean Platelet Volume 11.6 FL (9.6-12.0); Monocytes % 7.6 % (1.7-12.7); NRBC # 0.02 10*3/uL; Neutrophils % 73.9 % (38.7-73.9); Platelet Count 192 T/CUMM (130-400); Red Blood Count 4.53 MC/CUMM (3.8-5.5); Red Cell Distribution Width 17.7 % (9.3-17.3); White Blood Count 9.6 T/CUMM (4-12)
[2021-07-01 06:00] LABS: Albumin 1.6 G/DL (3.4-5.0); Bilirubin,Total 0.5 MG/DL (0.20-1.00); Calcium 8.8 MG/DL (8.5-10.1); Osmolality,Calculated 281.5 MOS/KG (273-304); Potassium 3.7 MMOL/L (3.5-5.1); Total Protein 5.2 G/DL (6.4-8.2)
[2021-07-01 06:27] LABS: Ferritin 5036.5 ng/mL (8-252)
[2021-07-01 06:29] LABS: ABG Base Excess 3.5 MMOL/L (-2.5-2.5); ABG HCO3 27.6 MMOL/L (20-26); ABG PCO2 63.3 MM HG (35-48); ABG PH 7.307 (7.35-7.45); ABG TCO2 28.5 MMOL/L (23-27)
[2021-07-01] MEDS ORDERED: PANTOPRAZOLE 40 MG TABLET PO SCH (09:00)
[2021-07-01] MEDS: ASPIRIN EC 81 MG TABLET PO SCH (09:54)
[2021-07-01] MEDS: DOCUSATE SODIUM 100 MG CAPSULE PO SCH ×2 (09:54→22:30)
[2021-07-01] MEDS: ASCORBIC ACID 500 MG TABLET PO SCH ×2 (09:55→22:29)
[2021-07-01] MEDS: DEXAMETHASONE 4 MG/1 ML VIAL IV SCH (09:55)
[2021-07-01] MEDS: CHOLECALCIFEROL 1,000 UNIT TABLET PO SCH (09:55)
[2021-07-01] MEDS: PANTOPRAZOLE 40 MG VIAL IV SCH (09:55)
[2021-07-01] MEDS: METOPROLOL TARTRATE 25 MG TABLET PO SCH ×2 (09:55→23:14)
[2021-07-01] MEDS: ZINC GLUCONATE 50 MG TABLET PO SCH (09:56)
[2021-07-01] MEDS: INSULIN REGULAR 100 UNIT/ML SUBCUT SCH ×3 (11:48→21:59)
[2021-07-01] MEDS: ATORVASTATIN 80 MG TABLET PO SCH (22:29)
[2021-07-01 22:48] LABS: INR 1.1; PT Patient Result 12.4 SECS (10.5-12.0)
[2021-07-02] MEDS: INSULIN REGULAR 100 UNIT/ML SUBCUT SCH ×4 (00:30→18:36)
[2021-07-02] MEDS: PIPERACILLIN/TAZOBACTAM 3,375 MG in SODIUM CHLORIDE 0.9% 100 ML IV SCH ×2 (04:13→18:31)
[2021-07-02] MEDS: DOCUSATE SODIUM 100 MG CAPSULE PO SCH ×2 (09:12→21:04)
[2021-07-02] MEDS: ASPIRIN EC 81 MG TABLET PO SCH (09:13)
[2021-07-02] MEDS: METOPROLOL TARTRATE 25 MG TABLET PO SCH ×2 (09:13→21:04)
[2021-07-02] MEDS: CHOLECALCIFEROL 1,000 UNIT TABLET PO SCH (09:13)
[2021-07-02] MEDS: ASCORBIC ACID 500 MG TABLET PO SCH ×2 (09:13→21:04)
[2021-07-02] MEDS: ZINC GLUCONATE 50 MG TABLET PO SCH (09:13)
[2021-07-02] MEDS: DEXAMETHASONE 4 MG/1 ML VIAL IV SCH (09:14)
[2021-07-02] MEDS: PANTOPRAZOLE 40 MG VIAL IV SCH (09:14)
[2021-07-02] MEDS ORDERED: MAGNESIUM SULF RIDER 2 GM/50 ML PREMIX IV ONE (17:00)
[2021-07-02] MEDS: SILDENAFIL 20 MG TABLET PO SCH (21:04)
[2021-07-02] MEDS: ATORVASTATIN 80 MG TABLET PO SCH (21:04)
[2021-07-03] MEDS: INSULIN REGULAR 100 UNIT/ML SUBCUT SCH ×4 (00:06→19:05)
[2021-07-03 05:27] LABS: Basophils % 0.1 % (0.0-0.8); Hematocrit 36.9 VOL% (35.7-47.0); Hemoglobin 11.1 GM/DL (12.0-16.0); Immature Granulocytes % 0.4 %; Immature Granulocytes Absolute 0.05 #; Lymphocytes # 1.2 10*3/uL (1.4-4.0); Lymphocytes % 9.6 % (21.3-54.2); Mean Corpuscular HGB Conc 30.1 GM/DL (32-36); Mean Corpuscular Volume 82.6 FL (87-102); Mean Platelet Volume 11.3 FL (9.6-12.0); Monocytes % 4.5 % (1.7-12.7); NRBC # 0.02 10*3/uL; Neutrophils % 85.4 % (38.7-73.9); Platelet Count 228 T/CUMM (130-400); Red Blood Count 4.47 MC/CUMM (3.8-5.5); Red Cell Distribution Width 18.9 % (9.3-17.3); White Blood Count 12.3 T/CUMM (4-12)
[2021-07-03] MEDS: PIPERACILLIN/TAZOBACTAM 3,375 MG in SODIUM CHLORIDE 0.9% 100 ML IV SCH ×2 (05:46→21:28)
[2021-07-03 05:49] LABS: Calcium 9.3 MG/DL (8.5-10.1); Potassium 3.9 MMOL/L (3.5-5.1)
[2021-07-03] MEDS: ASCORBIC ACID 500 MG TABLET PO SCH ×2 (08:47→21:28)
[2021-07-03] MEDS: SILDENAFIL 20 MG TABLET PO SCH ×3 (08:47→21:28)
[2021-07-03] MEDS: CHOLECALCIFEROL 1,000 UNIT TABLET PO SCH (08:47)
[2021-07-03] MEDS: DOCUSATE SODIUM 100 MG CAPSULE PO SCH ×2 (08:47→21:28)
[2021-07-03] MEDS: ZINC GLUCONATE 50 MG TABLET PO SCH (08:47)
[2021-07-03] MEDS: PANTOPRAZOLE 40 MG VIAL IV SCH (08:47)
[2021-07-03] MEDS: ASPIRIN EC 81 MG TABLET PO SCH (08:47)
[2021-07-03] MEDS: DEXAMETHASONE 4 MG/1 ML VIAL IV SCH (08:48)
[2021-07-03] MEDS: METOPROLOL TARTRATE 25 MG TABLET PO SCH ×2 (10:58→21:06)
[2021-07-03] MEDS: ATORVASTATIN 80 MG TABLET PO SCH (21:28)
[2021-07-04] MEDS: INSULIN REGULAR 100 UNIT/ML SUBCUT SCH ×4 (04:26→20:33)
[2021-07-04 08:53] LABS: Calcium 8.8 MG/DL (8.5-10.1); Osmolality,Calculated 277.5 MOS/KG (273-304); Potassium 3.8 MMOL/L (3.5-5.1)
[2021-07-04 09:04] LABS: Basophils % 0.2 % (0.0-0.8); Immature Granulocytes % 0.6 %; Immature Granulocytes Absolute 0.06 #; Lymphocytes # 1.5 10*3/uL (1.4-4.0); Lymphocytes % 13.9 % (21.3-54.2); Mean Corpuscular HGB Conc 29.2 GM/DL (32-36); Mean Platelet Volume 10.3 FL (9.6-12.0); Monocytes % 7.9 % (1.7-12.7); NRBC # 0.03 10*3/uL; Neutrophils % 77.4 % (38.7-73.9); Platelet Count 228 T/CUMM (130-400); Red Blood Count 4.58 MC/CUMM (3.8-5.5); Red Cell Distribution Width 18.9 % (9.3-17.3); White Blood Count 10.8 T/CUMM (4-12)
[2021-07-04] MEDS: SILDENAFIL 20 MG TABLET PO SCH ×3 (09:04→21:04)
[2021-07-04 09:05] LABS: Hemoglobin 11.1 GM/DL (12.0-16.0)
[2021-07-04] MEDS: METOPROLOL TARTRATE 25 MG TABLET PO SCH ×2 (09:05→21:04)
[2021-07-04] MEDS: CHOLECALCIFEROL 1,000 UNIT TABLET PO SCH (09:05)
[2021-07-04] MEDS: ZINC GLUCONATE 50 MG TABLET PO SCH (09:05)
[2021-07-04] MEDS: ASPIRIN EC 81 MG TABLET PO SCH (09:05)
[2021-07-04] MEDS: DOCUSATE SODIUM 100 MG CAPSULE PO SCH ×2 (09:05→21:03)
[2021-07-04] MEDS: PIPERACILLIN/TAZOBACTAM 3,375 MG in SODIUM CHLORIDE 0.9% 100 ML IV SCH ×2 (09:06→21:04)
[2021-07-04] MEDS: ASCORBIC ACID 500 MG TABLET PO SCH ×2 (09:06→21:04)
[2021-07-04] MEDS: PANTOPRAZOLE 40 MG VIAL IV SCH (09:07)
[2021-07-04] MEDS: DEXAMETHASONE 4 MG/1 ML VIAL IV SCH (09:07)
[2021-07-04] MEDS: ATORVASTATIN 80 MG TABLET PO SCH (21:04)
[2021-07-05] MEDS: INSULIN REGULAR 100 UNIT/ML SUBCUT SCH ×4 (00:35→17:48)
[2021-07-05] MEDS: PIPERACILLIN/TAZOBACTAM 3,375 MG in SODIUM CHLORIDE 0.9% 100 ML IV SCH ×2 (10:17→21:45)
[2021-07-05] MEDS: ASPIRIN EC 81 MG TABLET PO SCH (10:18)
[2021-07-05] MEDS: METOPROLOL TARTRATE 25 MG TABLET PO SCH ×2 (10:18→21:44)
[2021-07-05] MEDS: ASCORBIC ACID 500 MG TABLET PO SCH ×3 (10:19→23:12)
[2021-07-05] MEDS: SILDENAFIL 20 MG TABLET PO SCH ×3 (10:19→21:45)
[2021-07-05] MEDS: CHOLECALCIFEROL 1,000 UNIT TABLET PO SCH (10:19)
[2021-07-05] MEDS: ZINC GLUCONATE 50 MG TABLET PO SCH (10:19)
[2021-07-05] MEDS: DOCUSATE SODIUM 100 MG CAPSULE PO SCH ×2 (10:19→21:45)
[2021-07-05] MEDS: DEXAMETHASONE 4 MG/1 ML VIAL IV SCH (10:20)
[2021-07-05] MEDS: PANTOPRAZOLE 40 MG VIAL IV SCH (10:25)
[2021-07-05] MEDS: ATORVASTATIN 80 MG TABLET PO SCH (21:45)
[2021-07-06] MEDS: INSULIN REGULAR 100 UNIT/ML SUBCUT SCH ×3 (07:01→18:28)
[2021-07-06] MEDS: PIPERACILLIN/TAZOBACTAM 3,375 MG in SODIUM CHLORIDE 0.9% 100 ML IV SCH ×2 (09:09→22:15)
[2021-07-06] MEDS: DEXAMETHASONE 4 MG/1 ML VIAL IV SCH (09:47)
[2021-07-06] MEDS: SILDENAFIL 20 MG TABLET PO SCH ×3 (09:47→22:14)
[2021-07-06] MEDS: ASCORBIC ACID 500 MG TABLET PO SCH ×2 (09:47→22:14)
[2021-07-06] MEDS: DOCUSATE SODIUM 100 MG CAPSULE PO SCH ×2 (09:48→22:14)
[2021-07-06] MEDS: ZINC GLUCONATE 50 MG TABLET PO SCH (09:48)
[2021-07-06] MEDS: ASPIRIN EC 81 MG TABLET PO SCH (09:48)
[2021-07-06] MEDS: CHOLECALCIFEROL 1,000 UNIT TABLET PO SCH (09:48)
[2021-07-06] MEDS: PANTOPRAZOLE 40 MG VIAL IV SCH (09:52)
[2021-07-06] MEDS: METOPROLOL TARTRATE 25 MG TABLET PO SCH ×2 (09:53→22:15)
[2021-07-06] MEDS: ALBUTEROL/IPRATROPIUM 3 ML NEB RESP TX SCH (15:00)
[2021-07-06] MEDS: ATORVASTATIN 80 MG TABLET PO SCH (22:14)
[2021-07-07] MEDS: INSULIN REGULAR 100 UNIT/ML SUBCUT SCH ×3 (06:51→18:34)
[2021-07-07] MEDS: ALBUTEROL/IPRATROPIUM 3 ML NEB RESP TX SCH ×3 (08:48→23:40)
[2021-07-07] MEDS: ZINC GLUCONATE 50 MG TABLET PO SCH (10:14)
[2021-07-07] MEDS: CHOLECALCIFEROL 1,000 UNIT TABLET PO SCH (10:14)
[2021-07-07] MEDS: PIPERACILLIN/TAZOBACTAM 3,375 MG in SODIUM CHLORIDE 0.9% 100 ML IV SCH ×2 (10:14→23:00)
[2021-07-07] MEDS: SILDENAFIL 20 MG TABLET PO SCH ×3 (10:15→23:00)
[2021-07-07] MEDS: DOCUSATE SODIUM 100 MG CAPSULE PO SCH ×2 (10:15→23:00)
[2021-07-07] MEDS: ASPIRIN EC 81 MG TABLET PO SCH (10:15)
[2021-07-07] MEDS: ASCORBIC ACID 500 MG TABLET PO SCH ×2 (10:15→23:00)
[2021-07-07] MEDS: METOPROLOL TARTRATE 25 MG TABLET PO SCH ×2 (10:50→23:00)
[2021-07-07] MEDS: PANTOPRAZOLE 40 MG VIAL IV SCH (12:47)
[2021-07-07] MEDS: DEXAMETHASONE 4 MG/1 ML VIAL IV SCH (12:52)
[2021-07-07] MEDS: ATORVASTATIN 80 MG TABLET PO SCH (23:00)
[2021-07-08] MEDS: INSULIN REGULAR 100 UNIT/ML SUBCUT SCH ×5 (00:07→21:41)
[2021-07-08 06:01] LABS: Osmolality,Calculated 284.4 MOS/KG (273-304); Potassium 3.9 MMOL/L (3.5-5.1)
[2021-07-08] MEDS: ALBUTEROL/IPRATROPIUM 3 ML NEB RESP TX SCH (06:50)
[2021-07-08] MEDS: ZINC GLUCONATE 50 MG TABLET PO SCH (09:55)
[2021-07-08] MEDS: SILDENAFIL 20 MG TABLET PO SCH ×3 (09:55→21:42)
[2021-07-08] MEDS: DOCUSATE SODIUM 100 MG CAPSULE PO SCH ×2 (09:55→21:42)
[2021-07-08] MEDS: ASPIRIN EC 81 MG TABLET PO SCH (09:56)
[2021-07-08] MEDS: ASCORBIC ACID 500 MG TABLET PO SCH ×2 (09:56→21:42)
[2021-07-08] MEDS: METOPROLOL TARTRATE 25 MG TABLET PO SCH ×2 (09:56→21:42)
[2021-07-08] MEDS: DEXAMETHASONE 4 MG/1 ML VIAL IV SCH (09:57)
[2021-07-08] MEDS: PIPERACILLIN/TAZOBACTAM 3,375 MG in SODIUM CHLORIDE 0.9% 100 ML IV SCH ×2 (09:57→21:43)
[2021-07-08] MEDS: CHOLECALCIFEROL 1,000 UNIT TABLET PO SCH (09:57)
[2021-07-08] MEDS: PANTOPRAZOLE 40 MG VIAL IV SCH (10:14)
[2021-07-08] MEDS ORDERED: DEXTROSE 50% 25 GM/50 ML VIAL IV PRN (13:50)
[2021-07-08] MEDS: ATORVASTATIN 80 MG TABLET PO SCH (21:42)
[2021-07-09] MEDS ORDERED: PANTOPRAZOLE 40 MG TABLET PO SCH (06:30)
[2021-07-09 06:50] LABS: Albumin 1.7 G/DL (3.4-5.0); Bilirubin,Total 0.6 MG/DL (0.20-1.00); Calcium 8.6 MG/DL (8.5-10.1); Osmolality,Calculated 278.4 MOS/KG (273-304); Risk Ratio 2.1
[2021-07-09 06:57] LABS: Basophils % 0.3 % (0.0-0.8); Eosinophils % 0.2 % (0.00-10.9); Hematocrit 40.7 VOL% (35.7-47.0); Hemoglobin 12.5 GM/DL (12.0-16.0); Immature Granulocytes % 0.9 %; Immature Granulocytes Absolute 0.08 #; Lymphocytes # 1.2 10*3/uL (1.4-4.0); Lymphocytes % 14.3 % (21.3-54.2); Mean Corpuscular HGB Conc 30.7 GM/DL (32-36); Mean Corpuscular Volume 80.6 FL (87-102); Mean Platelet Volume 11.1 FL (9.6-12.0); Monocytes % 7.8 % (1.7-12.7); NRBC # 0.02 10*3/uL; Neutrophils % 76.5 % (38.7-73.9); Platelet Count 159 T/CUMM (130-400); Red Blood Count 5.05 MC/CUMM (3.8-5.5); Red Cell Distribution Width 20.1 % (9.3-17.3); White Blood Count 8.7 T/CUMM (4-12)
[2021-07-09] MEDS: INSULIN REGULAR 100 UNIT/ML SUBCUT SCH (08:55)
[2021-07-09] MEDS: ASPIRIN EC 81 MG TABLET PO SCH (09:55)
[2021-07-09] MEDS: DEXAMETHASONE 4 MG/1 ML VIAL IV SCH (09:55)
[2021-07-09] MEDS: METOPROLOL TARTRATE 25 MG TABLET PO SCH (09:55)
[2021-07-09] MEDS: DOCUSATE SODIUM 100 MG CAPSULE PO SCH ×2 (09:55→22:24)
[2021-07-09] MEDS: PIPERACILLIN/TAZOBACTAM 3,375 MG in SODIUM CHLORIDE 0.9% 100 ML IV SCH ×2 (09:56→22:25)
[2021-07-09] MEDS: SILDENAFIL 20 MG TABLET PO SCH ×3 (09:56→22:24)
[2021-07-09] MEDS: ASCORBIC ACID 500 MG TABLET PO SCH ×2 (09:56→22:24)
[2021-07-09] MEDS: ZINC GLUCONATE 50 MG TABLET PO SCH (09:56)
[2021-07-09] MEDS: CHOLECALCIFEROL 1,000 UNIT TABLET PO SCH (09:56)
[2021-07-09] MEDS: ALUMINUM/MAGNES/SIMETH MAX STR 30 ML UDCUP PO PRN (10:48)
[2021-07-09] MEDS ORDERED: ALBUTEROL 2.5 MG/3 ML NEB RESP TX PRN (11:27)
[2021-07-09] MEDS ORDERED: TEMAZEPAM 15 MG CAPSULE PO PRN (11:27)
[2021-07-09] MEDS: MENTHOL/ZINC OXIDE OINT 71 GM JAR TOP SCH ×2 (14:51→22:28)
[2021-07-09] MEDS: PANTOPRAZOLE 40 MG TABLET PO SCH (16:45)
[2021-07-09] MEDS: ATORVASTATIN 80 MG TABLET PO SCH (22:25)
[2021-07-10 05:57] LABS: Calcium 8.8 MG/DL (8.5-10.1); Osmolality,Calculated 283.3 MOS/KG (273-304); Potassium 3.7 MMOL/L (3.5-5.1)
[2021-07-10 06:33] LABS: Basophils % 0.2 % (0.0-0.8); Eosinophils # 0.1 10*3/uL (0.0-0.87); Eosinophils % 0.6 % (0.00-10.9); Hematocrit 37.4 VOL% (35.7-47.0); Hemoglobin 11.3 GM/DL (12.0-16.0); Immature Granulocytes % 0.8 %; Immature Granulocytes Absolute 0.07 #; Lymphocytes # 1.2 10*3/uL (1.4-4.0); Lymphocytes % 14.2 % (21.3-54.2); Mean Corpuscular HGB Conc 30.2 GM/DL (32-36); Mean Corpuscular Volume 81.5 FL (87-102); Mean Platelet Volume 11.9 FL (9.6-12.0); Monocytes % 7.2 % (1.7-12.7); Platelet Count 244 T/CUMM (130-400); Red Blood Count 4.59 MC/CUMM (3.8-5.5); Red Cell Distribution Width 20.1 % (9.3-17.3); White Blood Count 8.6 T/CUMM (4-12)
[2021-07-10] MEDS: DOCUSATE SODIUM 100 MG CAPSULE PO SCH ×2 (10:01→22:25)
[2021-07-10] MEDS: ZINC GLUCONATE 50 MG TABLET PO SCH (10:01)
[2021-07-10] MEDS: DEXAMETHASONE 4 MG/1 ML VIAL IV SCH (10:01)
[2021-07-10] MEDS: CHOLECALCIFEROL 1,000 UNIT TABLET PO SCH (10:01)
[2021-07-10] MEDS: ASCORBIC ACID 500 MG TABLET PO SCH ×2 (10:02→22:25)
[2021-07-10] MEDS: ASPIRIN EC 81 MG TABLET PO SCH (10:02)
[2021-07-10] MEDS: PANTOPRAZOLE 40 MG TABLET PO SCH ×2 (10:10→16:40)
[2021-07-10] MEDS: SILDENAFIL 20 MG TABLET PO SCH ×3 (10:11→22:25)
[2021-07-10] MEDS: MENTHOL/ZINC OXIDE OINT 71 GM JAR TOP SCH ×2 (10:11→22:26)
[2021-07-10] MEDS: METOPROLOL TARTRATE 25 MG TABLET PO SCH ×2 (10:27→22:25)
[2021-07-10] MEDS: ATORVASTATIN 80 MG TABLET PO SCH (22:25)
[2021-07-11] MEDS: ALUMINUM/MAGNES/SIMETH MAX STR 30 ML UDCUP PO PRN (09:21)
[2021-07-11] MEDS: CHOLECALCIFEROL 1,000 UNIT TABLET PO SCH (09:21)
[2021-07-11] MEDS: ZINC GLUCONATE 50 MG TABLET PO SCH (09:22)
[2021-07-11] MEDS: ASCORBIC ACID 500 MG TABLET PO SCH (09:22)
[2021-07-11] MEDS: SILDENAFIL 20 MG TABLET PO SCH (09:23)
[2021-07-11] MEDS: MENTHOL/ZINC OXIDE OINT 71 GM JAR TOP SCH (09:23)
[2021-07-11] MEDS: PANTOPRAZOLE 40 MG TABLET PO SCH (09:23)
[2021-07-11] MEDS: DOCUSATE SODIUM 100 MG CAPSULE PO SCH (09:23)
[2021-07-11] MEDS: ASPIRIN EC 81 MG TABLET PO SCH (09:23)
[2021-07-11 11:45] VITALS: BP 123/75
[2021-07-11] MEDS ORDERED: TUBERCULIN SKIN TEST 0.1 ML SYRINGE INTRADERM ONE (12:00)
[2021-07-11] MEDS: METOPROLOL TARTRATE 25 MG TABLET PO SCH (12:49)
== END 2021-07-11 12:41 | DRG 177 ==
LOC: EDBD → EDUNIT# → N.ED 22:32 → SUATTDRO 07-01 02:42 → N.EDINP 07-01 02:42 → N.5E 07-01 20:27
PROVIDERS: ADMIT Internal Medicine; ATTEND Internal Medicine

== ENCOUNTER 2021-08-07 14:22 | Inpatient (IN) ==
[2021-08-07] MEDS ORDERED: SODIUM CHLORIDE 0.9% 500 ML IV STA (15:03)
[2021-08-07] MEDS ORDERED: ALBUTEROL/IPRATROPIUM 3 ML NEB RESP TX STA (15:16)
[2021-08-07 16:10] LABS: Basophils # 0.1 10*3/uL (0.0-0.2); Basophils % 0.3 % (0.0-0.8); Eosinophils # 0.2 10*3/uL (0.0-0.87); Eosinophils % 1.4 % (0.00-10.9); Hematocrit 34.8 VOL% (35.7-47.0); Hemoglobin 10.9 GM/DL (12.0-16.0); Immature Granulocytes % 0.7 %; Immature Granulocytes Absolute 0.11 #; Lymphocytes # 2.4 10*3/uL (1.4-4.0); Lymphocytes % 14.9 % (21.3-54.2); Mean Corpuscular HGB Conc 31.3 GM/DL (32-36); Mean Corpuscular Volume 78.9 FL (87-102); Mean Platelet Volume 11.3 FL (9.6-12.0); Monocytes % 6.8 % (1.7-12.7); NRBC # 0.02 10*3/uL; Neutrophils % 75.9 % (38.7-73.9); Platelet Count 290 T/CUMM (130-400); Red Blood Count 4.41 MC/CUMM (3.8-5.5); Red Cell Distribution Width 25.3 % (9.3-17.3)
[2021-08-07 16:41] LABS: Alanine Aminotransferase 24 U/L (13-56); Albumin 1.4 G/DL (3.4-5.0); Alkaline Phosphatase 184 U/L (45-117); Aspartate Amino Transferase 84 U/L (0-37); Blood Urea Nitrogen 15 MG/DL (7-18); Carbon Dioxide 23 MMOL/L (21-32); Estimated Glom Filtration Rate 11 ML/MIN; Glucose 122 MG/DL (74-106); Osmolality,Calculated 265.5 MOS/KG (273-304); Potassium 4.8 MMOL/L (3.5-5.1); Sodium 132 MMOL/L (136-145); Total Protein 6.1 G/DL (6.4-8.2)
[2021-08-07] MEDS ORDERED: PIPERACILLIN/TAZOBACTAM 3,375 MG in SODIUM CHLORIDE 0.9% 100 ML IV STA (16:45)
[2021-08-07] MEDS ORDERED: VANCOMYCIN INJ 1,000 MG in SODIUM CHLORIDE 0.9% 250 ML IV STA (16:45)
[2021-08-07] MEDS ORDERED: ONDANSETRON 4 MG/2 ML VIAL ONE (16:50)
[2021-08-07] MEDS ORDERED: ONDANSETRON 4 MG/2 ML VIAL IV STA (16:52)
[2021-08-07] MEDS ORDERED: ONDANSETRON 4 MG/2 ML VIAL IV PRN (17:15)
[2021-08-07] MEDS ORDERED: GLUCAGON 1 MG VIAL IM PRN (17:15)
[2021-08-07] MEDS ORDERED: SODIUM CHLORIDE 0.9% 500 ML IV ONE (17:31)
[2021-08-07] MEDS ORDERED: SIMETHICONE CHEW 80 MG TABLET PO PRN (17:51)
[2021-08-07] MEDS ORDERED: ALBUTEROL/IPRATROPIUM 3 ML NEB RESP TX PRN (17:53)
[2021-08-07 17:58] LABS: Thyroid Stimulating Hormone 3.59 uIU/ml (0.358-3.74)
[2021-08-07] MEDS ORDERED: DEXTROSE 10% 25 GM/250 ML BAG IV PRN (18:01)
[2021-08-07] MEDS: ACETAMINOPHEN 325 MG TABLET PO PRN (18:17)
[2021-08-07] MEDS: SODIUM CHLORIDE 0.9% 1,000 ML IV SCH (19:18)
[2021-08-07] MEDS: ALBUTEROL/IPRATROPIUM 3 ML NEB RESP TX SCH (20:25)
[2021-08-07] MEDS: ATORVASTATIN 80 MG TABLET PO SCH (21:37)
[2021-08-07] MEDS: DOCUSATE SODIUM 100 MG CAPSULE PO SCH (21:37)
[2021-08-07] MEDS: ASCORBIC ACID 500 MG TABLET PO SCH (21:37)
[2021-08-07] MEDS: HEPARIN 5,000 UNIT/1 ML VIAL SUBCUT SCH (21:38)
[2021-08-07] MEDS: INSULIN LISPRO 100 UNIT/ML SUBCUT SCH (21:40)
[2021-08-07 21:51] LABS: INR 1.3; PT Patient Result 14.5 SECS (10.5-12.0)
[2021-08-08 03:44] LABS: Basophils # 0.1 10*3/uL (0.0-0.2); Basophils % 0.4 % (0.0-0.8); Eosinophils # 0.1 10*3/uL (0.0-0.87); Eosinophils % 0.6 % (0.00-10.9); Hematocrit 31.1 VOL% (35.7-47.0); Hemoglobin 9.9 GM/DL (12.0-16.0); Immature Granulocytes % 0.7 %; Immature Granulocytes Absolute 0.08 #; Lymphocytes % 8.1 % (21.3-54.2); Mean Corpuscular HGB Conc 31.8 GM/DL (32-36); Mean Corpuscular Volume 77.9 FL (87-102); Mean Platelet Volume 10.1 FL (9.6-12.0); Monocytes % 9.5 % (1.7-12.7); NRBC # 0.02 10*3/uL; Neutrophils % 80.7 % (38.7-73.9); Platelet Count 208 T/CUMM (130-400); Red Blood Count 3.99 MC/CUMM (3.8-5.5); Red Cell Distribution Width 24.7 % (9.3-17.3); White Blood Count 12.1 T/CUMM (4-12)
[2021-08-08 04:04] LABS: Albumin 1.3 G/DL (3.4-5.0); Bilirubin,Total 0.6 MG/DL (0.20-1.00); Calcium 8.8 MG/DL (8.5-10.1); Potassium 3.1 MMOL/L (3.5-5.1); Total Protein 5.1 G/DL (6.4-8.2)
[2021-08-08 04:07] LABS: Acanthocytes Few; Lymphocytes 6 % (20-55); Segmented Neutrophils 84 % (50-85); Total Cells Counted 100
[2021-08-08 04:08] LABS: Hypochromia 1+; Microcytosis 1+; Polychromasia Slight; Target Cells Slight
[2021-08-08 04:09] LABS: Burr Cells Slight
[2021-08-08 04:10] LABS: Anisocytosis 1+; Poikilocytosis 1+
[2021-08-08] MEDS: PIPERACILLIN/TAZOBACTAM 3,375 MG in SODIUM CHLORIDE 0.9% 100 ML IV SCH ×2 (05:32→17:50)
[2021-08-08] MEDS: ALBUTEROL/IPRATROPIUM 3 ML NEB RESP TX SCH ×4 (07:25→19:10)
[2021-08-08] MEDS: INSULIN LISPRO 100 UNIT/ML SUBCUT SCH ×4 (08:48→21:55)
[2021-08-08] MEDS: DOCUSATE SODIUM 100 MG CAPSULE PO SCH ×2 (09:05→21:54)
[2021-08-08] MEDS: ASPIRIN EC 81 MG TABLET PO SCH (09:05)
[2021-08-08] MEDS: PANTOPRAZOLE 40 MG TABLET PO SCH ×2 (09:05→17:49)
[2021-08-08] MEDS: ASCORBIC ACID 500 MG TABLET PO SCH ×2 (09:05→21:54)
[2021-08-08] MEDS: HEPARIN 5,000 UNIT/1 ML VIAL SUBCUT SCH ×2 (09:06→21:55)
[2021-08-08] MEDS: POLYETHYLENE GLYCOL POWDER 17 GM PACK PO SCH (09:08)
[2021-08-08] MEDS: ACETAMINOPHEN 325 MG TABLET PO PRN (09:24)
[2021-08-08] MEDS: fentaNYL 12 MCG/HR PATCH TRANSDERM SCH (15:13)
[2021-08-08] MEDS: NYSTATIN CREAM 15 GM TUBE TOP SCH ×2 (15:14→21:55)
[2021-08-08] MEDS: MENTHOL/ZINC OXIDE OINT 71 GM JAR TOP SCH ×2 (15:14→21:55)
[2021-08-08] MEDS: LACTULOSE 20 GM/30 ML UDCUP PO SCH ×2 (17:48→23:01)
[2021-08-08] MEDS: SODIUM CHLORIDE 0.9% 1,000 ML IV SCH (17:50)
[2021-08-08] MEDS: ATORVASTATIN 80 MG TABLET PO SCH (21:54)
[2021-08-09] MEDS: ALBUTEROL/IPRATROPIUM 3 ML NEB RESP TX SCH ×4 (00:24→20:32)
[2021-08-09 01:33] LABS: Basophils # 0.1 10*3/uL (0.0-0.2); Basophils % 0.4 % (0.0-0.8); Eosinophils # 0.3 10*3/uL (0.0-0.87); Eosinophils % 1.8 % (0.00-10.9); Hematocrit 30.3 VOL% (35.7-47.0); Hemoglobin 9.9 GM/DL (12.0-16.0); Immature Granulocytes % 0.5 %; Immature Granulocytes Absolute 0.08 #; Lymphocytes # 2.3 10*3/uL (1.4-4.0); Lymphocytes % 14.6 % (21.3-54.2); Mean Corpuscular HGB Conc 32.7 GM/DL (32-36); Mean Corpuscular Volume 76.5 FL (87-102); Mean Platelet Volume 10.3 FL (9.6-12.0); Monocytes % 9.4 % (1.7-12.7); Neutrophils % 73.3 % (38.7-73.9); Platelet Count 217 T/CUMM (130-400); Red Blood Count 3.96 MC/CUMM (3.8-5.5); Red Cell Distribution Width 25.2 % (9.3-17.3); White Blood Count 15.8 T/CUMM (4-12)
[2021-08-09 01:54] LABS: Albumin 1.3 G/DL (3.4-5.0); Bilirubin,Direct 0.45 MG/DL (0.0-0.20); Bilirubin,Indirect 0.2 MG/DL (0.0-1.0); Bilirubin,Total 0.6 MG/DL (0.20-1.00); Calcium 9.2 MG/DL (8.5-10.1); Osmolality,Calculated 274.8 MOS/KG (273-304); Potassium 3.3 MMOL/L (3.5-5.1); Total Protein 5.1 G/DL (6.4-8.2)
[2021-08-09 04:09] LABS: Acanthocytes Few; Hypochromia 2+; Microcytosis 1+; Ovalocytes Few; Target Cells Few
[2021-08-09 04:10] LABS: Anisocytosis 1+; Burr Cells Slight; Poikilocytosis 1+
[2021-08-09 04:11] LABS: Platelet Estimate Normal; Schistocytes Slight
[2021-08-09] MEDS: LACTULOSE 20 GM/30 ML UDCUP PO SCH ×3 (06:23→17:23)
[2021-08-09] MEDS: PIPERACILLIN/TAZOBACTAM 3,375 MG in SODIUM CHLORIDE 0.9% 100 ML IV SCH ×2 (06:23→17:23)
[2021-08-09] MEDS: INSULIN LISPRO 100 UNIT/ML SUBCUT SCH ×4 (08:40→20:53)
[2021-08-09] MEDS ORDERED: POTASSIUM CHLORIDE 20 MEQ TABLET PO ONE (08:41)
[2021-08-09] MEDS: HEPARIN 5,000 UNIT/1 ML VIAL SUBCUT SCH ×2 (08:59→20:52)
[2021-08-09] MEDS: PANTOPRAZOLE 40 MG TABLET PO SCH ×2 (08:59→17:20)
[2021-08-09] MEDS: POLYETHYLENE GLYCOL POWDER 17 GM PACK PO SCH ×3 (08:59→20:54)
[2021-08-09] MEDS: ASCORBIC ACID 500 MG TABLET PO SCH ×2 (09:00→20:52)
[2021-08-09] MEDS: DOCUSATE SODIUM 100 MG CAPSULE PO SCH ×2 (09:00→20:53)
[2021-08-09] MEDS: ASPIRIN EC 81 MG TABLET PO SCH (09:00)
[2021-08-09] MEDS ORDERED: MAGNESIUM SULF RIDER 2 GM/50 ML PREMIX IV ONE (13:02)
[2021-08-09] MEDS: SODIUM CHLORIDE 0.9% 1,000 ML IV SCH (14:20)
[2021-08-09] MEDS: NYSTATIN CREAM 15 GM TUBE TOP SCH ×2 (14:50→20:52)
[2021-08-09] MEDS: MENTHOL/ZINC OXIDE OINT 71 GM JAR TOP SCH ×2 (14:50→20:51)
[2021-08-09] MEDS: ATORVASTATIN 80 MG TABLET PO SCH (20:52)
[2021-08-10] MEDS: LACTULOSE 20 GM/30 ML UDCUP PO SCH ×4 (00:28→18:03)
[2021-08-10] MEDS: ALBUTEROL/IPRATROPIUM 3 ML NEB RESP TX SCH ×4 (01:30→19:55)
[2021-08-10] MEDS: PIPERACILLIN/TAZOBACTAM 3,375 MG in SODIUM CHLORIDE 0.9% 100 ML IV SCH ×2 (05:38→17:45)
[2021-08-10] MEDS: SODIUM CHLORIDE 0.9% 1,000 ML IV SCH (06:02)
[2021-08-10 09:05] LABS: Basophils # 0.1 10*3/uL (0.0-0.2); Basophils % 0.4 % (0.0-0.8); Eosinophils # 0.2 10*3/uL (0.0-0.87); Eosinophils % 1.2 % (0.00-10.9); Hematocrit 32.3 VOL% (35.7-47.0); Hemoglobin 10.3 GM/DL (12.0-16.0); Immature Granulocytes % 0.7 %; Immature Granulocytes Absolute 0.14 #; Lymphocytes % 14.9 % (21.3-54.2); Mean Corpuscular HGB Conc 31.9 GM/DL (32-36); Mean Corpuscular Volume 77.6 FL (87-102); Monocytes % 8.2 % (1.7-12.7); Neutrophils % 74.6 % (38.7-73.9); Platelet Count 218 T/CUMM (130-400); Red Blood Count 4.16 MC/CUMM (3.8-5.5); Red Cell Distribution Width 26.5 % (9.3-17.3); White Blood Count 20.1 T/CUMM (4-12)
[2021-08-10] MEDS: DOCUSATE SODIUM 100 MG CAPSULE PO SCH ×2 (09:07→21:19)
[2021-08-10] MEDS: HEPARIN 5,000 UNIT/1 ML VIAL SUBCUT SCH ×2 (09:07→21:18)
[2021-08-10] MEDS: ASCORBIC ACID 500 MG TABLET PO SCH ×2 (09:07→21:18)
[2021-08-10] MEDS: POLYETHYLENE GLYCOL POWDER 17 GM PACK PO SCH ×3 (09:07→21:20)
[2021-08-10] MEDS: ASPIRIN EC 81 MG TABLET PO SCH (09:07)
[2021-08-10] MEDS: PANTOPRAZOLE 40 MG TABLET PO SCH ×2 (09:07→17:45)
[2021-08-10 09:27] LABS: Anisocytosis 1+; Band Neutrophils 3 % (0-10); Burr Cells 2+; Eosinophils 1 % (0-10); Lymphocytes 17 % (20-55); Macrocytosis 1+; Metamyelocytes 1 %; Ovalocytes Few; Platelet Estimate Normal; Polychromasia Slight; Segmented Neutrophils 70 % (50-85); Total Cells Counted 100
[2021-08-10 09:28] LABS: Acanthocytes Few; Target Cells Few
[2021-08-10 09:31] LABS: Calcium 8.9 MG/DL (8.5-10.1); Osmolality,Calculated 280.1 MOS/KG (273-304); Potassium 3.5 MMOL/L (3.5-5.1)
[2021-08-10] MEDS: INSULIN LISPRO 100 UNIT/ML SUBCUT SCH ×4 (11:23→21:20)
[2021-08-10] MEDS: MENTHOL/ZINC OXIDE OINT 71 GM JAR TOP SCH ×2 (15:33→21:18)
[2021-08-10] MEDS: NYSTATIN CREAM 15 GM TUBE TOP SCH ×2 (15:33→21:19)
[2021-08-10 16:53] LABS: Basophils # 0.1 10*3/uL (0.0-0.2); Basophils % 0.5 % (0.0-0.8); Eosinophils # 0.1 10*3/uL (0.0-0.87); Eosinophils % 0.8 % (0.00-10.9); Hematocrit 32.5 VOL% (35.7-47.0); Hemoglobin 10.5 GM/DL (12.0-16.0); Immature Granulocytes % 0.7 %; Immature Granulocytes Absolute 0.12 #; Lymphocytes # 1.5 10*3/uL (1.4-4.0); Lymphocytes % 8.8 % (21.3-54.2); Mean Corpuscular HGB Conc 32.3 GM/DL (32-36); Mean Corpuscular Volume 78.3 FL (87-102); Mean Platelet Volume 10.4 FL (9.6-12.0); Monocytes % 6.7 % (1.7-12.7); Neutrophils % 82.5 % (38.7-73.9); Platelet Count 287 T/CUMM (130-400); Red Blood Count 4.15 MC/CUMM (3.8-5.5); Red Cell Distribution Width 26.6 % (9.3-17.3); White Blood Count 16.9 T/CUMM (4-12)
[2021-08-10] MEDS: LINEZOLID 600 MG TABLET PO SCH (21:18)
[2021-08-10] MEDS: ATORVASTATIN 80 MG TABLET PO SCH (21:18)
[2021-08-10] MEDS: ACETAMINOPHEN 325 MG TABLET PO PRN (21:18)
[2021-08-11] MEDS: LACTULOSE 20 GM/30 ML UDCUP PO SCH ×4 (00:39→18:17)
[2021-08-11] MEDS: ALBUTEROL/IPRATROPIUM 3 ML NEB RESP TX SCH ×4 (01:00→20:08)
[2021-08-11] MEDS: PIPERACILLIN/TAZOBACTAM 3,375 MG in SODIUM CHLORIDE 0.9% 100 ML IV SCH ×2 (05:54→17:16)
[2021-08-11 07:27] LABS: Calcium 9.3 MG/DL (8.5-10.1); Osmolality,Calculated 274.7 MOS/KG (273-304); Potassium 3.4 MMOL/L (3.5-5.1)
[2021-08-11 07:54] LABS: Basophils # 0.1 10*3/uL (0.0-0.2); Basophils % 0.7 % (0.0-0.8); Eosinophils # 0.2 10*3/uL (0.0-0.87); Eosinophils % 1.4 % (0.00-10.9); Hematocrit 31.4 VOL% (35.7-47.0); Hemoglobin 10.1 GM/DL (12.0-16.0); Immature Granulocytes % 0.7 %; Lymphocytes # 1.7 10*3/uL (1.4-4.0); Lymphocytes % 10.9 % (21.3-54.2); Mean Corpuscular HGB Conc 32.2 GM/DL (32-36); Mean Corpuscular Volume 76.6 FL (87-102); Monocytes % 8.7 % (1.7-12.7); NRBC # 0.02 10*3/uL; Neutrophils % 77.6 % (38.7-73.9); Platelet Count 246 T/CUMM (130-400); Red Cell Distribution Width 26.4 % (9.3-17.3); White Blood Count 15.4 T/CUMM (4-12)
[2021-08-11] MEDS: ASPIRIN EC 81 MG TABLET PO SCH (08:23)
[2021-08-11] MEDS: PANTOPRAZOLE 40 MG TABLET PO SCH ×2 (08:23→17:16)
[2021-08-11] MEDS: HEPARIN 5,000 UNIT/1 ML VIAL SUBCUT SCH ×2 (08:24→20:58)
[2021-08-11] MEDS: LINEZOLID 600 MG TABLET PO SCH ×2 (08:24→20:58)
[2021-08-11] MEDS: DOCUSATE SODIUM 100 MG CAPSULE PO SCH ×2 (08:24→20:58)
[2021-08-11] MEDS: fentaNYL 12 MCG/HR PATCH TRANSDERM SCH (08:24)
[2021-08-11] MEDS: ASCORBIC ACID 500 MG TABLET PO SCH ×2 (08:24→20:58)
[2021-08-11] MEDS: POLYETHYLENE GLYCOL POWDER 17 GM PACK PO SCH ×3 (08:28→20:59)
[2021-08-11] MEDS: NYSTATIN CREAM 15 GM TUBE TOP SCH ×2 (08:29→20:59)
[2021-08-11] MEDS: INSULIN LISPRO 100 UNIT/ML SUBCUT SCH ×4 (08:29→20:59)
[2021-08-11] MEDS: MENTHOL/ZINC OXIDE OINT 71 GM JAR TOP SCH ×2 (08:29→20:58)
[2021-08-11 08:36] LABS: Anisocytosis 2+; Ovalocytes 1+; Platelet Estimate Normal
[2021-08-11 08:37] LABS: Burr Cells 1+; Macrocytosis 1+; Poikilocytosis 1+; Polychromasia Slight; Target Cells Few; Tear Drop Cells Few
[2021-08-11] MEDS: ATORVASTATIN 80 MG TABLET PO SCH (20:58)
[2021-08-12] MEDS: ALBUTEROL/IPRATROPIUM 3 ML NEB RESP TX SCH ×4 (01:51→20:17)
[2021-08-12] MEDS: PIPERACILLIN/TAZOBACTAM 3,375 MG in SODIUM CHLORIDE 0.9% 100 ML IV SCH (05:28)
[2021-08-12] MEDS: LACTULOSE 20 GM/30 ML UDCUP PO SCH ×4 (05:53→19:28)
[2021-08-12] MEDS: PANTOPRAZOLE 40 MG TABLET PO SCH ×2 (08:26→19:27)
[2021-08-12] MEDS: INSULIN LISPRO 100 UNIT/ML SUBCUT SCH ×4 (08:54→21:00)
[2021-08-12] MEDS: POLYETHYLENE GLYCOL POWDER 17 GM PACK PO SCH ×3 (09:31→21:00)
[2021-08-12] MEDS: HEPARIN 5,000 UNIT/1 ML VIAL SUBCUT SCH ×2 (09:53→21:00)
[2021-08-12] MEDS: MENTHOL/ZINC OXIDE OINT 71 GM JAR TOP SCH ×2 (09:54→21:00)
[2021-08-12] MEDS: NYSTATIN CREAM 15 GM TUBE TOP SCH ×2 (09:54→21:00)
[2021-08-12] MEDS: LINEZOLID 600 MG TABLET PO SCH (14:32)
[2021-08-12] MEDS ORDERED: LIDOCAINE 2% 20 ML VIAL ONE (16:53)
[2021-08-12] MEDS: ASPIRIN EC 81 MG TABLET PO SCH (17:46)
[2021-08-12] MEDS: DOCUSATE SODIUM 100 MG CAPSULE PO SCH ×2 (17:47→21:00)
[2021-08-12] MEDS: ASCORBIC ACID 500 MG TABLET PO SCH ×2 (19:27→21:00)
[2021-08-12] MEDS: cephALEXin 500 MG CAPSULE PO SCH (21:00)
[2021-08-12] MEDS: ATORVASTATIN 80 MG TABLET PO SCH (21:00)
[2021-08-13] MEDS: LACTULOSE 20 GM/30 ML UDCUP PO SCH ×5 (00:29→23:57)
[2021-08-13] MEDS: ALBUTEROL/IPRATROPIUM 3 ML NEB RESP TX SCH ×3 (01:27→19:51)
[2021-08-13 05:48] LABS: Basophils # 0.1 10*3/uL (0.0-0.2); Basophils % 0.6 % (0.0-0.8); Eosinophils # 0.1 10*3/uL (0.0-0.87); Hematocrit 30.9 VOL% (35.7-47.0); Hemoglobin 10.1 GM/DL (12.0-16.0); Immature Granulocytes % 0.8 %; Immature Granulocytes Absolute 0.12 #; Lymphocytes # 1.6 10*3/uL (1.4-4.0); Lymphocytes % 11.2 % (21.3-54.2); Mean Corpuscular HGB Conc 32.7 GM/DL (32-36); Monocytes % 7.9 % (1.7-12.7); Neutrophils % 78.5 % (38.7-73.9); Platelet Count 322 T/CUMM (130-400); Red Blood Count 4.12 MC/CUMM (3.8-5.5); Red Cell Distribution Width 27.1 % (9.3-17.3); White Blood Count 14.3 T/CUMM (4-12)
[2021-08-13 06:01] LABS: Osmolality,Calculated 273.5 MOS/KG (273-304); Potassium 3.5 MMOL/L (3.5-5.1)
[2021-08-13 06:14] LABS: Acanthocytes Few; Hypochromia 2+; Target Cells Few
[2021-08-13 06:15] LABS: Anisocytosis 1+; Burr Cells Slight; Microcytosis 1+; Ovalocytes Few; Poikilocytosis 1+; Polychromasia Slight
[2021-08-13 06:16] LABS: Platelet Estimate Normal
[2021-08-13] MEDS: POLYETHYLENE GLYCOL POWDER 17 GM PACK PO SCH ×3 (09:59→20:00)
[2021-08-13] MEDS: PANTOPRAZOLE 40 MG TABLET PO SCH ×2 (10:00→17:42)
[2021-08-13] MEDS: ASPIRIN EC 81 MG TABLET PO SCH (10:00)
[2021-08-13] MEDS: ASCORBIC ACID 500 MG TABLET PO SCH ×2 (10:00→20:00)
[2021-08-13] MEDS: DOCUSATE SODIUM 100 MG CAPSULE PO SCH ×2 (10:01→20:00)
[2021-08-13] MEDS: NYSTATIN CREAM 15 GM TUBE TOP SCH ×2 (10:01→20:00)
[2021-08-13] MEDS: MENTHOL/ZINC OXIDE OINT 71 GM JAR TOP SCH ×2 (10:02→20:00)
[2021-08-13] MEDS: INSULIN LISPRO 100 UNIT/ML SUBCUT SCH ×4 (10:02→20:00)
[2021-08-13] MEDS: HEPARIN 5,000 UNIT/1 ML VIAL SUBCUT SCH ×2 (10:03→20:00)
[2021-08-13] MEDS: cephALEXin 500 MG CAPSULE PO SCH (17:42)
[2021-08-13] MEDS: ATORVASTATIN 80 MG TABLET PO SCH (20:00)
[2021-08-14] MEDS: ALBUTEROL/IPRATROPIUM 3 ML NEB RESP TX SCH ×3 (00:02→13:00)
[2021-08-14] MEDS: LACTULOSE 20 GM/30 ML UDCUP PO SCH ×2 (05:47→16:53)
[2021-08-14] MEDS: PANTOPRAZOLE 40 MG TABLET PO SCH ×2 (09:28→17:05)
[2021-08-14] MEDS: DOCUSATE SODIUM 100 MG CAPSULE PO SCH (09:28)
[2021-08-14] MEDS: ASCORBIC ACID 500 MG TABLET PO SCH (09:28)
[2021-08-14] MEDS: HEPARIN 5,000 UNIT/1 ML VIAL SUBCUT SCH (09:28)
[2021-08-14] MEDS: POLYETHYLENE GLYCOL POWDER 17 GM PACK PO SCH ×2 (09:28→16:54)
[2021-08-14] MEDS: ASPIRIN EC 81 MG TABLET PO SCH (09:28)
[2021-08-14] MEDS: fentaNYL 12 MCG/HR PATCH TRANSDERM SCH (09:29)
[2021-08-14 10:12] LABS: Basophils # 0.1 10*3/uL (0.0-0.2); Basophils % 0.6 % (0.0-0.8); Eosinophils # 0.1 10*3/uL (0.0-0.87); Eosinophils % 0.5 % (0.00-10.9); Hematocrit 28.9 VOL% (35.7-47.0); Hemoglobin 9.6 GM/DL (12.0-16.0); Immature Granulocytes Absolute 0.12 #; Lymphocytes # 1.2 10*3/uL (1.4-4.0); Lymphocytes % 9.3 % (21.3-54.2); Mean Corpuscular HGB Conc 33.2 GM/DL (32-36); Mean Corpuscular Volume 74.9 FL (87-102); Mean Platelet Volume 9.8 FL (9.6-12.0); Monocytes % 7.7 % (1.7-12.7); NRBC # 0.02 10*3/uL; Neutrophils % 80.9 % (38.7-73.9); Platelet Count 248 T/CUMM (130-400); Red Blood Count 3.86 MC/CUMM (3.8-5.5); Red Cell Distribution Width 26.9 % (9.3-17.3); White Blood Count 12.3 T/CUMM (4-12)
[2021-08-14 10:33] LABS: Calcium 8.7 MG/DL (8.5-10.1); Osmolality,Calculated 276.4 MOS/KG (273-304); Potassium 3.2 MMOL/L (3.5-5.1)
[2021-08-14] MEDS: NYSTATIN CREAM 15 GM TUBE TOP SCH (13:03)
[2021-08-14] MEDS: MENTHOL/ZINC OXIDE OINT 71 GM JAR TOP SCH (13:03)
[2021-08-14 16:22] VITALS: BP 109/65
[2021-08-14] MEDS: INSULIN LISPRO 100 UNIT/ML SUBCUT SCH ×2 (16:53→16:55)
[2021-08-14] MEDS: cephALEXin 500 MG CAPSULE PO SCH (17:05)
== END 2021-08-14 17:12 | disposition home or self-care (01) | DRG 314 ==
LOC: EDUNIT# → EDBD → N.ED 14:22 → N.TELEN 17:00 → SUATTDRO 17:00 → N.TELEN 21:03
PROVIDERS: ADMIT Internal Medicine; ATTEND Internal Medicine

== ENCOUNTER 2021-08-22 17:09 | Inpatient (IN) ==
[2021-08-22] MEDS ORDERED: SODIUM CHLORIDE 0.9% 1,000 ML IV STA (19:12)
[2021-08-22 19:27] LABS: Basophils # 0.1 10*3/uL (0.0-0.2); Basophils % 0.5 % (0.0-0.8); Eosinophils # 0.1 10*3/uL (0.0-0.87); Eosinophils % 1.1 % (0.00-10.9); Hematocrit 31.4 VOL% (35.7-47.0); Hemoglobin 10.4 GM/DL (12.0-16.0); Immature Granulocytes % 0.5 %; Immature Granulocytes Absolute 0.06 #; Lymphocytes # 1.7 10*3/uL (1.4-4.0); Lymphocytes % 15.7 % (21.3-54.2); Mean Corpuscular HGB Conc 33.1 GM/DL (32-36); Mean Corpuscular Volume 74.8 FL (87-102); Monocytes % 8.3 % (1.7-12.7); NRBC # 0.11 10*3/uL; Neutrophils % 73.9 % (38.7-73.9); Platelet Count 209 T/CUMM (130-400)
[2021-08-22 19:36] LABS: Alanine Aminotransferase 43 U/L (13-56); Albumin 1.4 G/DL (3.4-5.0); Alkaline Phosphatase 212 U/L (45-117); Aspartate Amino Transferase 68 U/L (0-37); Blood Urea Nitrogen 14 MG/DL (7-18); Calcium 9.2 MG/DL (8.5-10.1); Carbon Dioxide 26 MMOL/L (21-32); Estimated Glom Filtration Rate 12 ML/MIN; Glucose 76 MG/DL (74-106); Potassium 3.6 MMOL/L (3.5-5.1); Sodium 136 MMOL/L (136-145); Total Protein 5.5 G/DL (6.4-8.2)
[2021-08-22 23:51] LABS: ABG Base Excess -0.2 MMOL/L (-2.5-2.5); ABG HCO3 24.1 MMOL/L (20-26); ABG Oxygen Saturation 90.4 % (95-100); ABG PH 7.375 (7.35-7.45); ABG PO2 66.2 MM HG (80-95); ABG TCO2 22.8 MMOL/L (23-27)
[2021-08-23] MEDS ORDERED: ONDANSETRON 4 MG/2 ML VIAL IV PRN (00:13)
[2021-08-23] MEDS ORDERED: GLUCAGON 1 MG VIAL IM PRN (00:13)
[2021-08-23] MEDS ORDERED: ALBUTEROL 2.5 MG/3 ML NEB RESP TX PRN (00:29)
[2021-08-23] MEDS: HEPARIN 5,000 UNIT/1 ML VIAL SUBCUT SCH ×2 (02:25→13:11)
[2021-08-23 04:11] LABS: Basophils # 0.1 10*3/uL (0.0-0.2); Basophils % 0.4 % (0.0-0.8); Eosinophils # 0.1 10*3/uL (0.0-0.87); Eosinophils % 0.8 % (0.00-10.9); Hematocrit 30.3 VOL% (35.7-47.0); Hemoglobin 10.2 GM/DL (12.0-16.0); Immature Granulocytes % 0.7 %; Immature Granulocytes Absolute 0.08 #; Lymphocytes # 1.6 10*3/uL (1.4-4.0); Lymphocytes % 13.5 % (21.3-54.2); Mean Corpuscular HGB Conc 33.7 GM/DL (32-36); Mean Corpuscular Volume 74.3 FL (87-102); Monocytes % 6.2 % (1.7-12.7); NRBC # 0.09 10*3/uL; Neutrophils % 78.4 % (38.7-73.9); Platelet Count 246 T/CUMM (130-400); Red Blood Count 4.08 MC/CUMM (3.8-5.5); Red Cell Distribution Width 27.2 % (9.3-17.3); White Blood Count 11.5 T/CUMM (4-12)
[2021-08-23 04:33] LABS: Platelet Estimate Adequate; Polychromasia 1+; Schistocytes 1+; Target Cells 1+
[2021-08-23 04:41] LABS: Albumin 1.3 G/DL (3.4-5.0); Bilirubin,Total 1.1 MG/DL (0.20-1.00); Calcium 8.6 MG/DL (8.5-10.1); Osmolality,Calculated 273.7 MOS/KG (273-304); Potassium 3.6 MMOL/L (3.5-5.1); Thyroid Stimulating Hormone 4.19 uIU/ml (0.358-3.74); Total Protein 5.1 G/DL (6.4-8.2)
[2021-08-23] MEDS: DEXTROSE 10% 250 ML BAG IV PRN ×2 (07:32→13:11)
[2021-08-23] MEDS: cefTRIAXone 1,000 MG in SYRINGE 1 EACH IV SCH (07:50)
[2021-08-23] MEDS: DOXYCYCLINE HYCLATE INJ 100 MG in SODIUM CHLORIDE 0.9% 100 ML IV SCH ×2 (07:55→20:10)
[2021-08-23 08:40] LABS: Free T4 (Free Thyroxine) 0.88 NG/DL (0.76-1.46)
[2021-08-23] MEDS: ASPIRIN EC 81 MG TABLET PO SCH (11:21)
[2021-08-23 15:32] LABS: Acetaminophen 5.8 UG/ML (10-30); Salicylate < 2.8 MG/DL (2.8-20)
[2021-08-23] MEDS: MENTHOL/ZINC OXIDE OINT 71 GM JAR TOP SCH ×2 (17:19→21:07)
[2021-08-23 17:51] LABS: Hepatitis B Core IgM Quant 0.14 Index; Hepatitis B Surface Ag Quant 0.16 Index; Hepatitis B Surface Ag Result Non-Reactive (NonReactive); Hepatitis C Virus Ab Quant 0.14 Index; Hepatitis C Virus Ab Result Non-Reactive (NonReactive)
[2021-08-23] MEDS ORDERED: SODIUM CHLORIDE 0.9% 250 ML IV ONE (18:49)
[2021-08-23] MEDS: ATORVASTATIN 80 MG TABLET PO SCH (21:07)
[2021-08-24] MEDS: HEPARIN 5,000 UNIT/1 ML VIAL SUBCUT SCH ×2 (02:53→13:13)
[2021-08-24] MEDS: cefTRIAXone 1,000 MG in SYRINGE 1 EACH IV SCH (06:23)
[2021-08-24] MEDS: DOXYCYCLINE HYCLATE INJ 100 MG in SODIUM CHLORIDE 0.9% 100 ML IV SCH ×2 (07:50→20:18)
[2021-08-24] MEDS: PANTOPRAZOLE 40 MG TABLET PO SCH ×2 (08:07→16:10)
[2021-08-24] MEDS: MENTHOL/ZINC OXIDE OINT 71 GM JAR TOP SCH ×2 (08:07→20:18)
[2021-08-24] MEDS: POLYETHYLENE GLYCOL POWDER 17 GM PACK PO SCH ×2 (08:07→20:18)
[2021-08-24] MEDS: ACETAMINOPHEN 325 MG TABLET PO PRN (08:07)
[2021-08-24] MEDS: ASPIRIN EC 81 MG TABLET PO SCH (08:07)
[2021-08-24] MEDS: DEXTROSE 10% 250 ML BAG IV PRN (08:44)
[2021-08-24] MEDS ORDERED: LIDOCAINE/PRILOCAINE CREAM 5 GM TUBE TOP ONE (10:00)
[2021-08-24] MEDS ORDERED: DEXTROSE 10% 250 ML BAG IV ONE (11:00)
[2021-08-24] MEDS: HYDROCORTISONE 100 MG VIAL IV SCH (13:13)
[2021-08-24] MEDS: ATORVASTATIN 80 MG TABLET PO SCH (20:18)
[2021-08-24] MEDS ORDERED: ALBUMIN 25% 25 GM/100 ML VIAL IV ONE (21:00)
[2021-08-24] MEDS ORDERED: SODIUM CHLORIDE 0.9% 250 ML IV ONE (21:01)
[2021-08-25] MEDS: HEPARIN 5,000 UNIT/1 ML VIAL SUBCUT SCH ×2 (01:01→13:45)
[2021-08-25] MEDS: HYDROCORTISONE 100 MG VIAL IV SCH ×2 (01:02→13:45)
[2021-08-25] MEDS: cefTRIAXone 1,000 MG in SYRINGE 1 EACH IV SCH (07:02)
[2021-08-25 07:03] LABS: Basophils % 0.1 % (0.0-0.8); Hemoglobin 9.9 GM/DL (12.0-16.0); Immature Granulocytes % 0.8 %; Immature Granulocytes Absolute 0.08 #; Lymphocytes # 1.1 10*3/uL (1.4-4.0); Lymphocytes % 11.6 % (21.3-54.2); Mean Corpuscular HGB Conc 34.1 GM/DL (32-36); Monocytes % 1.1 % (1.7-12.7); NRBC # 0.05 10*3/uL; Neutrophils % 86.4 % (38.7-73.9); Platelet Count 158 T/CUMM (130-400); Red Blood Count 3.97 MC/CUMM (3.8-5.5); Red Cell Distribution Width 27.6 % (9.3-17.3); White Blood Count 9.9 T/CUMM (4-12)
[2021-08-25 07:19] LABS: Calcium 8.6 MG/DL (8.5-10.1); Osmolality,Calculated 273.8 MOS/KG (273-304); Potassium 3.8 MMOL/L (3.5-5.1)
[2021-08-25 07:46] LABS: VLDL Cholesterol 17.4 MG/DL
[2021-08-25] MEDS: DOXYCYCLINE HYCLATE INJ 100 MG in SODIUM CHLORIDE 0.9% 100 ML IV SCH ×2 (10:03→20:19)
[2021-08-25] MEDS: MENTHOL/ZINC OXIDE OINT 71 GM JAR TOP SCH ×2 (10:05→21:12)
[2021-08-25] MEDS: POLYETHYLENE GLYCOL POWDER 17 GM PACK PO SCH ×2 (10:05→20:19)
[2021-08-25] MEDS: PANTOPRAZOLE 40 MG TABLET PO SCH ×2 (10:05→16:12)
[2021-08-25] MEDS: ASPIRIN EC 81 MG TABLET PO SCH (10:06)
[2021-08-25 10:14] LABS: Burr Cells 1+; Polychromasia Slight; Schistocytes Few; Target Cells 2+
[2021-08-25 10:15] LABS: Acanthocytes Few; Platelet Estimate Adequate; Spherocytes Few
[2021-08-25] MEDS: ACETAMINOPHEN 325 MG TABLET PO PRN (16:12)
[2021-08-25] MEDS: ATORVASTATIN 80 MG TABLET PO SCH (20:19)
[2021-08-26] MEDS: HEPARIN 5,000 UNIT/1 ML VIAL SUBCUT SCH ×2 (00:32→17:40)
[2021-08-26] MEDS: HYDROCORTISONE 100 MG VIAL IV SCH ×2 (00:33→17:40)
[2021-08-26 06:17] LABS: Basophils % 0.1 % (0.0-0.8); Hematocrit 29.3 VOL% (35.7-47.0); Hemoglobin 9.8 GM/DL (12.0-16.0); Immature Granulocytes % 1.3 %; Immature Granulocytes Absolute 0.13 #; Lymphocytes # 1.1 10*3/uL (1.4-4.0); Lymphocytes % 11.3 % (21.3-54.2); Mean Corpuscular HGB Conc 33.4 GM/DL (32-36); Mean Corpuscular Volume 75.3 FL (87-102); Monocytes % 2.9 % (1.7-12.7); NRBC # 0.05 10*3/uL; Neutrophils % 84.4 % (38.7-73.9); Platelet Count 175 T/CUMM (130-400); Red Blood Count 3.89 MC/CUMM (3.8-5.5); Red Cell Distribution Width 27.6 % (9.3-17.3); White Blood Count 9.8 T/CUMM (4-12)
[2021-08-26 06:20] LABS: Calcium 8.3 MG/DL (8.5-10.1); Osmolality,Calculated 280.5 MOS/KG (273-304)
[2021-08-26] MEDS: cefTRIAXone 1,000 MG in SYRINGE 1 EACH IV SCH (06:20)
[2021-08-26 06:36] LABS: Acanthocytes Few; Anisocytosis 1+; Hypochromia 1+; Microcytosis 1+; Platelet Estimate Adequate; Target Cells 1+
[2021-08-26] MEDS: PANTOPRAZOLE 40 MG TABLET PO SCH ×2 (09:49→17:40)
[2021-08-26] MEDS: ASPIRIN EC 81 MG TABLET PO SCH (09:49)
[2021-08-26] MEDS: DOXYCYCLINE HYCLATE INJ 100 MG in SODIUM CHLORIDE 0.9% 100 ML IV SCH ×2 (09:50→22:50)
[2021-08-26] MEDS: MENTHOL/ZINC OXIDE OINT 71 GM JAR TOP SCH ×2 (09:52→22:47)
[2021-08-26] MEDS: POLYETHYLENE GLYCOL POWDER 17 GM PACK PO SCH ×2 (09:53→22:49)
[2021-08-26] MEDS: ACETAMINOPHEN 325 MG TABLET PO PRN (22:43)
[2021-08-26] MEDS: ATORVASTATIN 80 MG TABLET PO SCH (22:44)
[2021-08-27] MEDS: HYDROCORTISONE 100 MG VIAL IV SCH (00:39)
[2021-08-27 05:25] LABS: Hematocrit 28.8 VOL% (35.7-47.0); Hemoglobin 9.7 GM/DL (12.0-16.0); Immature Granulocytes % 0.8 %; Immature Granulocytes Absolute 0.08 #; Lymphocytes % 9.6 % (21.3-54.2); Mean Corpuscular HGB Conc 33.7 GM/DL (32-36); Mean Corpuscular Volume 74.2 FL (87-102); Monocytes % 3.8 % (1.7-12.7); NRBC # 0.04 10*3/uL; Neutrophils % 85.8 % (38.7-73.9); Platelet Count 231 T/CUMM (130-400); Red Blood Count 3.88 MC/CUMM (3.8-5.5); Red Cell Distribution Width 27.8 % (9.3-17.3); White Blood Count 10.1 T/CUMM (4-12)
[2021-08-27 05:42] LABS: Calcium 8.5 MG/DL (8.5-10.1); Potassium 3.6 MMOL/L (3.5-5.1)
[2021-08-27] MEDS: PANTOPRAZOLE 40 MG TABLET PO SCH (08:30)
[2021-08-27] MEDS: ASPIRIN EC 81 MG TABLET PO SCH (08:30)
[2021-08-27] MEDS: DOXYCYCLINE HYCLATE INJ 100 MG in SODIUM CHLORIDE 0.9% 100 ML IV SCH (08:31)
[2021-08-27] MEDS: cefTRIAXone 1,000 MG in SYRINGE 1 EACH IV SCH (09:34)
[2021-08-27] MEDS: MENTHOL/ZINC OXIDE OINT 71 GM JAR TOP SCH (09:35)
[2021-08-27] MEDS: POLYETHYLENE GLYCOL POWDER 17 GM PACK PO SCH (09:35)
[2021-08-27 19:43] VITALS: BP 105/55
== END 2021-08-27 19:45 | disposition home health service (06) | DRG 193 ==
LOC: EDUNIT# → EDBD → N.EDINP 17:09 → N.ED 17:09 → SUATTDRO 08-23 00:13 → N.3E 08-23 07:30 → SUATTDRO 08-24 10:31
PROVIDERS: ADMIT Internal Medicine; ATTEND Internal Medicine Geriatric Medicine

== ENCOUNTER 2021-09-07 16:01 | Inpatient (IN) ==
[2021-09-07] MEDS ORDERED: SODIUM CHLORIDE 0.9% 2,000 ML IV STA (16:23)
[2021-09-07 16:50] LABS: Basophils # 0.1 10*3/uL (0.0-0.2); Basophils % 0.3 % (0.0-0.8); Eosinophils # 0.1 10*3/uL (0.0-0.87); Eosinophils % 0.8 % (0.00-10.9); Hematocrit 32.9 VOL% (35.7-47.0); Hemoglobin 10.6 GM/DL (12.0-16.0); Immature Granulocytes % 0.5 %; Immature Granulocytes Absolute 0.07 #; Lymphocytes % 13.5 % (21.3-54.2); Mean Corpuscular HGB Conc 32.2 GM/DL (32-36); Mean Corpuscular Volume 76.9 FL (87-102); Monocytes % 5.5 % (1.7-12.7); NRBC # 0.06 10*3/uL; Neutrophils % 79.4 % (38.7-73.9); Platelet Count 108 T/CUMM (130-400); Red Blood Count 4.28 MC/CUMM (3.8-5.5); Red Cell Distribution Width 29.2 % (9.3-17.3); White Blood Count 14.6 T/CUMM (4-12)
[2021-09-07 16:59] LABS: INR 1.5; PT Patient Result 15.8 SECS (10.5-12.0)
[2021-09-07 17:10] LABS: Alanine Aminotransferase 58 U/L (13-56); Albumin 1.3 G/DL (3.4-5.0); Alkaline Phosphatase 171 U/L (45-117); Aspartate Amino Transferase 79 U/L (0-37); Blood Urea Nitrogen 16 MG/DL (7-18); Calcium 8.2 MG/DL (8.5-10.1); Carbon Dioxide 30 MMOL/L (21-32); Estimated Glom Filtration Rate 13 ML/MIN; Glucose 57 MG/DL (74-106); Osmolality,Calculated 271.8 MOS/KG (273-304); Potassium 3.3 MMOL/L (3.5-5.1); Sodium 137 MMOL/L (136-145)
[2021-09-07] MEDS ORDERED: cefTRIAXone 1,000 MG in SODIUM CHLORIDE 0.9% 100 ML IV STA (17:21)
[2021-09-07] MEDS ORDERED: ONDANSETRON 4 MG/2 ML VIAL IV PRN (19:10)
[2021-09-07] MEDS ORDERED: ALBUTEROL 2.5 MG/3 ML NEB RESP TX PRN (19:10)
[2021-09-07] MEDS ORDERED: SODIUM CHLORIDE 0.9% 1,000 ML IV SCH (19:30)
[2021-09-07] MEDS ORDERED: ACETAMINOPHEN 325 MG TABLET PO PRN (19:41)
[2021-09-07 20:10] VITALS: BP 64/51
[2021-09-07] MEDS: PHENYLEPHRINE DRIP 40 MG/250 ML PREMIX IV PRN ×2 (20:34→23:27)
[2021-09-07] MEDS ORDERED: AZITHROMYCIN INJ 500 MG in SODIUM CHLORIDE 0.9% 250 ML IV SCH (21:00)
[2021-09-07] MEDS ORDERED: DEXTROSE 10% 250 ML IV ONE (21:17)
[2021-09-07] MEDS: DEXTROSE 10% 250 ML BAG IV PRN (21:28)
[2021-09-07] MEDS: ATORVASTATIN 80 MG TABLET PO SCH ×2 (21:43→23:12)
[2021-09-07] MEDS: MIDODRINE 5 MG TABLET PO SCH ×2 (21:43→23:11)
[2021-09-07] MEDS: METOCLOPRAMIDE 10 MG/2 ML VIAL IV SCH (21:44)
[2021-09-07] MEDS: HEPARIN 5,000 UNIT/1 ML VIAL SUBCUT SCH (21:44)
[2021-09-07] MEDS: PANTOPRAZOLE 40 MG VIAL IV SCH (21:51)
[2021-09-07 23:19] LABS: ABG Base Excess -7.2 MMOL/L (-2.5-2.5); ABG HCO3 18.4 MMOL/L (20-26); ABG Oxygen Saturation 90.9 % (95-100); ABG PCO2 35.2 MM HG (35-48); ABG PO2 69.1 MM HG (80-95); ABG TCO2 16.5 MMOL/L (23-27)
[2021-09-07] MEDS ORDERED: SODIUM BICARBONATE 50 MEQ/50 ML VIAL IV ONE (23:32)
[2021-09-07] MEDS: HYDROCORTISONE 100 MG VIAL IV SCH (23:45)
[2021-09-08] MEDS: NOREPINEPHRINE 16 MG in SODIUM CHLORIDE 0.9% 234 ML IV PRN ×2 (00:35→22:53)
[2021-09-08] MEDS: ALBUTEROL/IPRATROPIUM 3 ML NEB RESP TX SCH ×2 (00:47→08:00)
[2021-09-08] MEDS: PHENYLEPHRINE DRIP 40 MG/250 ML PREMIX IV PRN ×3 (00:49→04:32)
[2021-09-08 03:26] LABS: ABG Base Excess -11.4 MMOL/L (-2.5-2.5); ABG HCO3 15.5 MMOL/L (20-26); ABG Oxygen Saturation 94.9 % (95-100); ABG PCO2 30.1 MM HG (35-48); ABG PH 7.284 (7.35-7.45)
[2021-09-08 03:37] LABS: Basophils % 0.1 % (0.0-0.8); Eosinophils % 0.1 % (0.00-10.9); Hematocrit 34.9 VOL% (35.7-47.0); Hemoglobin 11.1 GM/DL (12.0-16.0); Immature Granulocytes % 0.9 %; Immature Granulocytes Absolute 0.15 #; Lymphocytes % 6.3 % (21.3-54.2); Mean Corpuscular HGB Conc 31.8 GM/DL (32-36); Mean Corpuscular Volume 78.6 FL (87-102); Monocytes % 2.7 % (1.7-12.7); NRBC # 0.11 10*3/uL; Neutrophils % 89.9 % (38.7-73.9); Platelet Count 123 T/CUMM (130-400); Red Blood Count 4.44 MC/CUMM (3.8-5.5); Red Cell Distribution Width 30.2 % (9.3-17.3)
[2021-09-08] MEDS ORDERED: SODIUM BICARBONATE 50 MEQ/50 ML VIAL IV ONE ×2 (03:53→19:55)
[2021-09-08 03:57] LABS: Acanthocytes Few; Anisocytosis 1+; Hypochromia 1+; Microcytosis 1+; Target Cells 1+
[2021-09-08 03:58] LABS: Burr Cells Slight; Pappenheimer Bodies Slight; Platelet Estimate Adequate
[2021-09-08] MEDS ORDERED: SODIUM BICARB INJ 150 MEQ in STERILE WATER INJ 850 ML IV SCH (04:00)
[2021-09-08 04:08] LABS: Calcium 7.5 MG/DL (8.5-10.1); Osmolality,Calculated 280.3 MOS/KG (273-304); Potassium 3.4 MMOL/L (3.5-5.1)
[2021-09-08] MEDS ORDERED: VANCOMYCIN INJ 1,500 MG in SODIUM CHLORIDE 0.9% 250 ML IV ONE (04:50)
[2021-09-08] MEDS ORDERED: VANCOMYCIN INJ 750 MG in SODIUM CHLORIDE 0.9% 250 ML IV PRN (05:11)
[2021-09-08] MEDS: HEPARIN 5,000 UNIT/1 ML VIAL SUBCUT SCH ×3 (05:28→20:59)
[2021-09-08] MEDS: PIPERACILLIN/TAZOBACTAM 3,375 MG in SODIUM CHLORIDE 0.9% 100 ML IV SCH ×2 (05:28→17:21)
[2021-09-08] MEDS ORDERED: ONDANSETRON 4 MG/2 ML VIAL IV ONE (05:38)
[2021-09-08] MEDS ORDERED: VANCOMYCIN INJ 2,000 MG in SODIUM CHLORIDE 0.9% 500 ML IV ONE ×2 (06:00→10:00)
[2021-09-08] MEDS: PHENYLEPHRINE INJ 160 MG in SODIUM CHLORIDE 0.9% 234 ML IV PRN ×4 (06:01→23:19)
[2021-09-08] MEDS: HYDROCORTISONE 100 MG VIAL IV SCH ×3 (06:39→22:51)
[2021-09-08] MEDS ORDERED: DEXTROSE 50% 25 GM/50 ML SYRINGE IV ONE ×2 (08:14→09:17)
[2021-09-08 08:38] LABS: INR 1.7
[2021-09-08] MEDS ORDERED: DEXTROSE 50% 25 GM/50 ML VIAL IV PRN (08:50)
[2021-09-08] MEDS: ASPIRIN EC 81 MG TABLET PO SCH (10:42)
[2021-09-08] MEDS: MIDODRINE 5 MG TABLET PO SCH ×3 (10:42→22:05)
[2021-09-08] MEDS: METOCLOPRAMIDE 10 MG/2 ML VIAL IV SCH ×2 (10:56→20:58)
[2021-09-08] MEDS: SODIUM BICARB INJ 150 MEQ in DEXTROSE 5% 1,000 ML IV SCH (10:57)
[2021-09-08] MEDS ORDERED: PHENYLEPHRINE DRIP 40 MG/250 ML PREMIX IV ONE (11:19)
[2021-09-08] MEDS ORDERED: PHENYLEPHRINE DRIP 40 MG/250 ML PREMIX IV PRN (11:30)
[2021-09-08] MEDS: IPRATROPIUM 500 MCG/2.5 ML NEB RESP TX SCH ×2 (13:10→19:45)
[2021-09-08] MEDS ORDERED: cefTRIAXone 1,000 MG in SODIUM CHLORIDE 0.9% 100 ML IV SCH (18:00)
[2021-09-08 19:51] LABS: Arterial Base Excess iSTAT -18 MMOL/L (-2.5-2.5); Arterial Bicarbonate iSTAT 10.1 MMOL/L (20-26); Arterial O2 Saturation iSTAT 95 % (95-100); Arterial PCO2 iSTAT 32 MM HG (35-48); Arterial PO2 iSTAT 101 MM HG (80-95); Arterial Total CO2 iSTAT 11 MMO/L (23-27); Arterial pH iSTAT 7.109 (7.35-7.45)
[2021-09-08] MEDS: PANTOPRAZOLE 40 MG VIAL IV SCH (20:59)
[2021-09-08] MEDS: DEXTROSE 10% 250 ML BAG IV PRN (23:37)
[2021-09-09] MEDS: IPRATROPIUM 500 MCG/2.5 ML NEB RESP TX SCH ×2 (01:02→08:02)
[2021-09-09 03:37] LABS: Basophils # 0.1 10*3/uL (0.0-0.2); Basophils % 0.3 % (0.0-0.8); Hematocrit 37.1 VOL% (35.7-47.0); Hemoglobin 11.4 GM/DL (12.0-16.0); Immature Granulocytes % 2.4 %; Immature Granulocytes Absolute 0.69 #; Lymphocytes # 0.9 10*3/uL (1.4-4.0); Lymphocytes % 3.2 % (21.3-54.2); Mean Corpuscular HGB Conc 30.7 GM/DL (32-36); Mean Corpuscular Volume 81.9 FL (87-102); Monocytes % 1.9 % (1.7-12.7); NRBC # 0.47 10*3/uL; Neutrophils % 92.2 % (38.7-73.9); Platelet Count 128 T/CUMM (130-400); Red Blood Count 4.53 MC/CUMM (3.8-5.5); Red Cell Distribution Width 31.4 % (9.3-17.3); White Blood Count 28.5 T/CUMM (4-12)
[2021-09-09 03:51] LABS: Albumin 1.2 G/DL (3.4-5.0); Bilirubin,Total 1.1 MG/DL (0.20-1.00); Calcium 7.2 MG/DL (8.5-10.1); Osmolality,Calculated 283.1 MOS/KG (273-304); Potassium 3.6 MMOL/L (3.5-5.1); Total Protein 5.1 G/DL (6.4-8.2)
[2021-09-09 03:55] LABS: Acanthocytes Few; Lymphocytes 4 % (20-55); Microcytosis 1+; Nucleated Red Blood Cells 1 (0-5); Segmented Neutrophils 95 % (50-85); Total Cells Counted 100
[2021-09-09 03:56] LABS: Burr Cells Few; Hypochromia 1+; Target Cells Few
[2021-09-09 03:57] LABS: Platelet Estimate Adequate; Polychromasia Slight
[2021-09-09] MEDS: PHENYLEPHRINE INJ 160 MG in SODIUM CHLORIDE 0.9% 234 ML IV PRN ×3 (04:36→14:58)
[2021-09-09] MEDS: HEPARIN 5,000 UNIT/1 ML VIAL SUBCUT SCH (05:12)
[2021-09-09] MEDS: PIPERACILLIN/TAZOBACTAM 3,375 MG in SODIUM CHLORIDE 0.9% 100 ML IV SCH (05:13)
[2021-09-09] MEDS: HYDROCORTISONE 100 MG VIAL IV SCH (06:18)
[2021-09-09] MEDS: MIDODRINE 5 MG TABLET PO SCH (08:13)
[2021-09-09] MEDS: ASPIRIN EC 81 MG TABLET PO SCH (08:13)
[2021-09-09] MEDS: METOCLOPRAMIDE 10 MG/2 ML VIAL IV SCH (08:17)
[2021-09-09] MEDS: SODIUM BICARB INJ 150 MEQ in DEXTROSE 5% 1,000 ML IV SCH (08:18)
[2021-09-09] MEDS: NOREPINEPHRINE 16 MG in SODIUM CHLORIDE 0.9% 234 ML IV PRN (09:15)
[2021-09-09] MEDS: MORPHINE 4 MG/1 ML VIAL IV PRN ×6 (10:51→17:10)
[2021-09-09] MEDS: LORazepam 2 MG/1 ML VIAL IV PRN ×6 (10:51→17:10)
[2021-09-09] MEDS ORDERED: DESITIN 4OZ/NYSTATIN 15 GRAM MIXTURE PASTE TOP SCH (15:00)
== END 2021-09-09 18:00 | disposition expired | DRG 871 ==
LOC: EDUNIT# → EDBD → N.ED 16:01 → SUATTDRO 19:19 → N.EDINP 19:19 → N.CC 19:45
PROVIDERS: ADMIT Internal Medicine; ATTEND Internal Medicine